=== PATIENT | female | born 1955 | race Caucasian/White ===

== ENCOUNTER 2025-06-06 12:38 | Outpatient (NON) | payer MEDICARE, SELFPAY ==
--- OUTSIDE RECORDS SUMMARY | 2025-06-06 13:19 | XMS_ITS | Referral Summary ---
Author Organization [facility] Building Address [address] [place] [address] Care Team Providers Care Picture Copyist Name Role Phone Rodrick Weiss MD Primary Care Provider [phone] Suleiman Lucia [facility] Unavailable Unavail able Chqiuita Kim RN Unavailable North Pittman MD Unavailable [phone] Encounters Date Type Department Care Team Description 06/05/2025 SHOP/CHAP Subsequent Outreach [facility] OP CASE MANAGEMENT [address] [place] [address] Chiquita Kim RN 06/02/2025 SHOP/CHAP Subsequent Outreach [facility] OP CASE MANAGEMENT [address] [place] [address] Chiquita Kim, JOYCE 05/31/2025 Plan of Care Documentation [facility] [address] [place] [address] 05/31/2025 Orders Only [facility] [address] [place] [address] Suleiman Lucia RPh 05/28/2025 3:55 PM CDT - 05/31/2025 10:50 AM CDT Hospital Encounter [facility] 4 Med Surg [address] [place] [address] Collin Mckeon DO Gaspe Mudiyanselage, Nilupa Sewwandi, MD Cellulitis of left lower extremity (Primary Dx); Presence of both artificial knee joints; Tricompartment osteoarthritis of knees, bilateral; Infection of prosthetic left knee joint; Infection or inflammatory reaction due to internal joint prosthesis, initial encounter; Spinal stenosis of lumbar region with neurogenic claudication Discharge Disposition: Discharge to home, home health skilled care 05/28/2025 SHOP/CHAP Subsequent Outreach [facility] OP CASE MANAGEMENT [address] [place] [address] Chiquita Kim, JOYCE 05/26/2025 Home Infusion [facility]fusion Therapy [address] [place] [address] Latha Haley Infection of prosthetic left knee joint 05/26/2025 SHOP/CHAP Subsequent Outreach [facility] OP CASE MANAGEMENT [address] [place] [address] Chiquita Kim, JOYCE 05/23/2025 SHOP/CHAP Subsequent Outreach [facility] OP CASE MANAGEMENT [address] [place] [address] Chiquita Kim, JOYCE 05/22/2025 Telephone [facility] Medical Group Cardiology [address] [place] [address] [address] [place] [phone] Baljeet De La Rosa MD 05/21/2025 SHOP/CHAP Subsequent Outreach [facility] OP CASE MANAGEMENT [address] [place] [address] Chiquita Kim, JOYCE 05/21/2025 Telephone [facility] Infectious Diseases [address] [place] [address] [address] [place] [address] Ann Heller, JOYCE 05/20/2025 Home Infusion [facility]fusion Therapy [address] [place] [address] Matti Tracy, [facility] 05/19/2025 SHOP/CHAP Initial Outreach [facility] OP CASE MANAGEMENT [address] [place] [address] Chiquita Kim RN 05/19/2025 SHOP/CHAP Initial Eligibility Review [facility] OP CASE MANAGEMENT [address] [place] [address] Chiquita Kim RN 05/17/2025 Plan of Care Documentation [facility]fusion Therapy [address] [place] [address] 05/17/2025 Home Infusion [facility] [address] [place] [address] Ana Ruiz, [facility] Infection of prosthetic left knee joint (Primary Dx) 05/13/2025 9:29 AM CDT - 05/17/2025 1:17 PM CDT Hospital Encounter [address] [address] Kalpesh Rahman MD Infection or inflammatory reaction due to internal joint prosthesis, initial encounter (Primary Dx); Illness, unspecified; Infection of prosthetic left knee joint Discharge Disposition: Discharge to home, home health skilled care 05/16/2025 Documentation [facility] Infectious Diseases [address] [place] [phone] Janae Thorpe NP 05/13/2025 10:40 AM CDT - 05/13/2025 1:30 PM CDT Surgery [facility] Operating Room [address] [place] [address] Kalpesh Rahman MD IRRIGATION AND DEBRIDEMENT - KNEE 05/13/2025 10:22 AM CDT Anesthesia Event [facility] Operating Room [address] [place] [address] Albino Caal MD Dippolito, Jenny Irene, NP 05/01/2025 Telephone [facility] Orthopaedic Surgery [address] [place] [address] Office [facility] [address] [place] [phone] Kalpesh Rahman MD 04/29/2025 Telephone [facility] Orthopaedic Surgery [address] [place] [address] 4 [address] [place] [phone] Kalpesh Rahman MD 04/28/2025 8:30 AM CDT Pre-Admission Testing [facility] Center for Preoperative Assessment and [facility] [address] [place] [id number] Preoperative testing (Primary Dx); Vitamin D deficiency; Bleeding disorder 03/31/2025 Telephone [facility] Infectious Diseases [address] [place] [address] [address] [place] [phone] Latha Thorpe RMA 03/31/2025 11:52 AM CDT - 03/31/2025 11:59 PM CDT Hospital Encounter [address] MOB [address] [place] [phone] History of total knee arthroplasty, left; Orthopedic aftercare Discharge Disposition: Discharge to home or self care 03/31/2025 11:15 AM CDT Office Visit [facility] Orthopaedic Surgery [address] [place] [address] [address] [place] [phone] Kalpesh Rahman MD Infection of prosthetic left knee joint (Primary Dx); History of total knee arthroplasty, left; Orthopedic aftercare 03/20/2025 12:00 PM CDT Office Visit [facility] Cardiology [address] [place] [address] [place] [phone] Baljeet De La Rosa MD PVC's (premature ventricular contractions) (Primary Dx); Essential (primary) hypertension 03/15/2025 12:30 PM CDT Lab [facility] Lab [address] [place] [address] History of left knee replacement 03/10/2025 1:41 PM CDT - 03/10/2025 11:59 PM CDT Hospital Encounter [facility] Radiology [address] [place] [address] Inderjit Arnold MD Cabrera Lebron, Jorge Alberto, MD History of left knee replacement Discharge Disposition: Discharge to home or self care 03/07/2025 Telephone [facility] Radiology 1 [place] [address] GuerreroEsther adam B.A. from Last 3 Months Allergies Active Allergy Reactions Criticality Noted Date Comments Codeine Unknown 10/04/2021 Codeine Sulfate Syncope High 04/04/2019 passes out Hydrocodone Other (See comments) Low 10/05/2020 Didn't work on pain and was up for 4 nights without sleep. Patient can take tylenol. Took oxycodone for previous surgery Medications gabapentin (NEURONTIN) 300 mg capsule Take 3 capsules (900 mg total) by mouth 3 (three) times a day 270 capsule 11 021 2025 Active Additional Information Patient taking differently:900 mg oral 3 times daily,Indications: Neuropathic Pain, Informant: Self, Reported on 05/28/[address] (CYMBALTA) 20 mg capsuleIndicati ons:Anxiety with Depression,Neur opathic Pain Take 2 capsules (40 mg total) by mouth every morning 023 Active cholecalciferol (VITAMIN D-3) 2000 unit tabletIndicatio ns:Vitamin D Deficiency Take 125 mcg by mouth every morning 025 Active triamcinolone (KENALOG) 0.5 % creamIndication s:Skin Inflammation,sk in rash Apply 1 Application topically 2 (two) times a day as needed for irritation or rash 025 Active metoprolol XL (TOPROL-XL) 50 mg extended release tabletIndicatio ns:Dizziness and giddiness TAKE 1 TABLET(50 MG) BY MOUTH DAILY 90 tablet 3 025 Active Additional Information Patient taking differently:50 mg oralEvery morning, Indications: Ventricular Arrhythmias, PVC's, Informant: Self, Reported on 05/28/2025 clobetasoL (TEMOVATE) 0.05 % ointmentIndicat ions:Skin Inflammation Apply 1 Application topically 2 (two) times a day as needed (rash/inflammat ion) 025 Active cyclobenzaprine (FLEXERIL) 10 mg tabletIndicatio ns:Muscle Spasm Take 1 tablet (10 mg total) by mouth 3 (three) times a day as needed for muscle spasms 025 Active HAIR, SKIN AND NAILS, BIOTIN, ORALIndications :hair supplement Take 1 tablet/chew tab by mouth every morning Active calcium carbonate-vitam in D3 1,250 mg (500 mg elemental)-400 unit tabletIndicatio ns:Hypocalcemia Prevention,Prev ention of Vitamin D Deficiency,Kylie min D Deficiency Take 1 tablet by mouth every morning Active senna-docusate (PERICOLACE) 8.6-50 mgIndications:c onstipation Take 2 tablets by mouth 2 (two) times a day 60 tablet Active traMADoL (ULTRAM) 50 mg tabletIndicatio ns:Neuropathic Pain,Pain Take 1 tablet (50 mg total) by mouth every 6 (six) hours as needed for pain 42 tablet 025 Active Additional Information Patient taking differently: 100 mgoral Every 6 hours PRN, pain,Pt prescribed 2x 50mg tablets., Indications: Neuropathic Pain, Pain, Reported on 05/28/2025 sodium chloride 0.9% flush syringeIndicati ons:Infection of prosthetic left knee joint Infuse 10 mL IV as needed for line care 49225 mL 5 6:10 PM CDT 025 2024 Active heparin 10 unit/mL syringe flush syringeIndicati ons:Maintain Patency of Indwelling Vascular Catheter Infuse 5 mL (50 Units total) IV as needed (line care) 12518 mL 5 6:10 PM CDT 025 2024 Active furosemide (LASIX) 20 mg tablet Take 2 tablets (40 mg total) by mouth daily 180 tablet 1 025 2025 Active acetaminophen (TYLENOL) 500 mg tablet Take 2 tablets (1,000 mg total) by mouth every 8 (eight) hours as needed for pain Active naproxen (NAPROSYN) 500 mg tablet Take 1 tablet (500 mg total) by mouth 2 (two) times a day with meals Active doxycycline monohydrate (MONODOX) 100 mg capsuleIndicati ons:Skin/Soft Tissue Infection Take 1 capsule (100 mg total) by mouth 2 (two) times a day for 7 days 14 capsule 025 2024 Active cefTRIAXone 2,000 mg in sterile water 20 mL IV syringeIndicati ons:Infection of prosthetic left knee joint Give 20 ml (2,000 mg) by slow IV push into a venous catheter every 24 hours over 5 minutes. Remove dose from refrigerator 1-2 hours prior to use 440 mL 6:10 PM CDT 025 2024 Active naproxen (NAPROSYN) 500 mg tabletIndicatio ns:Anti-inflamm atory,Pain Take 1 tablet (500 mg total) by mouth 2 (two) times a day with meals 2024 Discontinued(S top Taking at Discharge) traMADoL (ULTRAM) 50 mg tabletIndicatio ns:Neuropathic Pain,Pain Take 1 tablet (50 mg total) by mouth every 4 (four) hours as needed for pain 024 2024 Discontinued cephalexin (KEFLEX) 500 mg capsule Take 1 capsule (500 mg total) by mouth every 8 (eight) hours 270 capsule 1 025 2024 Discontinued(S top Taking at Discharge) furosemide (LASIX) 40 mg tablet Take 1 tablet (40 mg total) by mouth daily 90 tablet 3 025 2024 Discontinued mupirocin (BACTROBAN) 2 % ointmentIndicat ions:Prophylact ic antibiotic Sig: Apply topically 2 (two) times a day for 5 days. APPLY TO NOSTRILS TWICE A DAY FOR 5 DAYS PRIOR TO SURGERY. 22 g 025 2024 Discontinued(S top Taking at Discharge) predniSONE (DELTASONE) 10 mg tabletIndicatio ns:Anti-inflamm atory,skin inflammation/in fection Take 1 tablet (10 mg) by mouth every morning 025 2024 Discontinued senna (SENOKOT) 8.6 mg tabletIndicatio ns:constipation Take 4 tablets by mouth every morning 2024 Discontinued(S top Taking at Discharge) sodium chloride 0.9% flush syringe Administer 10-40 mL into catheter every 12 (twelve) hours 025 2024 Discontinued(D uplicate order) sodium chloride 0.9% flush syringe Administer 10-20 mL into catheter as needed for line care 025 2024 Discontinued(D uplicate order) heparin 10 unit/mL syringe flush syringeIndicati ons:Maintain Patency of Indwelling Vascular Catheter Administer 2-5 mL (20-50 Units total) into catheter as needed (with each use) 025 2024 Discontinued(D uplicate order) heparin 10 unit/mL syringe flush syringeIndicati ons:Maintain Patency of Indwelling Vascular Catheter Administer 5 mL (50 Units total) into catheter every 12 (twelve) hours 025 2024 Discontinued(D uplicate order) cefTRIAXone (ROCEPHIN) syringeIndicati ons:Bone/Joint Infection Infuse 20 mL (2,000 mg total) IV daily for 5 minutes at 240 mL/hr Last dose 06/24 025 2024 Discontinued(D uplicate order) DAPTOmycin (CUBICIN) 50 mg/mL injectionIndica tions:Bone/Join t Infection Infuse 12 mL (600 mg total) IV daily for 2 minutes at 360 mL/hr Last dose 06/24 025 2024 Discontinued(D uplicate order) acetaminophen 500 mg capsuleIndicati ons:Pain Take 2 capsules (1,000 mg total) by mouth every 8 (eight) hours 90 tablet 025 2024 Discontinued(A lternate therapy) aspirin 81 mg enteric coated tabletIndicatio ns:Deep Vein Thrombosis Prevention Take 1 tablet (81 mg total) by mouth 2 (two) times a day 60 tablet 025 2024 Discontinued(P atient Reported) oxyCODONE (ROXICODONE) 5 mg immediate release tabletIndicatio ns:Pain Take 1 tablet (5 mg total) by mouth every 4 (four) hours as needed for pain 30 tablet 025 2024 Discontinued DAPTOmycin 600 mg in sodium chloride 0.9% 12 mL IV SyringeIndicati ons:Infection of prosthetic left knee joint Give 12 mL (600 mg) by slow IV push every 24 hours over 2 minutes. Remove dose from refrigerator 1-2 hours prior to use. 360 mL 1 5 11:59 PM CDT 025 2024 Discontinued cefTRIAXone 2,000 mg in sterile water 20 mL IV syringeIndicati ons:Infection of prosthetic left knee joint Give 20 ml (2,000 mg) by slow IV push into a venous catheter every 24 hours over 5 minutes. Remove dose from refrigerator 1-2 hours prior to use 600 mL 1 5 6:50 PM CDT 025 2024 Discontinued(R eorder) vancomycin (VANCOCIN) 1,000 mg injection Infuse 17.5 mL (1,750 mg total) IV daily for 24 days 42 each 025 2024 Discontinued(S top Taking at Discharge) Active Problems Problem Noted Date Diagnosed Date Cellulitis of left lower extremity 05/28/2025 Infection of prosthetic left knee joint 05/16/20 25 Assessment & Plan (05/16/2025 11:01 AM CDT): Julianna Albarran is a 69 y.o. female with a longstanding history of Left knee PJI. Patient was seen by ID in the past for similar issues, last in 01/2025. She has L TKA (2017), R TKA (2018) and R REYNA (2019). For her left knee PJI, she intially presented to [facility] 06[facility]21 with c/o worsening LLE pain, redness, and swelling after twisting her knee several days prior. She was started on IV ceftriaxone for cellulitis. She was seen by Ortho surgery with L knee arthrocentesis showing 89650 WBCs (90% PMNs) and R knee arthrocentesis showing 76112 WBCs (90% PMNs) raising concern for bilateral prosthetic joint infection. Cultures from bilateral knees grew MSSA along with blood cultures. She was then transferred to [facility] for further care. She was discharged on IV oxacillin with plans for 6 weeks of therapy to be followed by rodent exterminator oral antibiotic therapy due to retained hardware to bilateral knees. She completed IV antibiotic course on 07/12/21 and was then placed on Keflex for rodent exterminator suppression. She has been f/u with our ID clinic for her rodent exterminator antibiotic suppression. She had aspiration of knee on 06/08/22 in preparation for L TKA revision and had been off antibiotics for 2-3 weeks at that time with negative cultures. She was taken to the OR on 06/21/22 for revision arthroplasty with no signs of infection intraoperatively. One OR cultures grew Staph epi. ID team spoke with lab who felt this was likely a contaminant. She was recommended to continue on Keflex suppression. X-RAY 06/2024 showed increase in periprosthetic loosening so she went to see Ortho again in June to talk about possible surgical intervention. Per ortho note, the treatment option was discussed with her including DAIR vs 2-stage exchange. After reviewing risks and benefits extensively the patient elected for DAIR. She was admitted and went to the OR with Ortho Surgery for left knee I&D and lining exchange on 05/13/25. OR cultures were taken which are NGTD. Requested that microbiology send sequencing given she was on Keflex pre-operatively (pending). Recommending treating as culture negative left knee PJI with 6 weeks (05/13/25-06/24/25) of antibiotics then suppressing given retained hardware for additional 6 weeks (EOT 08/13/25) minimum. Would recommend risk/benefit discussion with patient and surgeon prior to discontinuing suppression given her history of chronic PJI's. Discharging with IV daptomycin and ceftriaxone with plan to follow sequencing results and adjust antibiotics as indicated at ID follow up. If sequencing is negative, could consider suppressing previous MSSA. Recommendations: - Discontinue IV vancomycin and cefepime and start daptomycin 8mg/kg (600mg) IV q24hr and ceftriaxone 2gm IV q24hr (ordered) - Check baseline CK - Monitor weekly CBC w/ diff, CMP and CK's - Okay by ID to place PICC line for rodent exterminator IV antibiotics - ID is formally signing off but will continue to monitor patient peripherally while inpatient. Please see sign off note from 05/16/25 for complete recommendations. Discussed plan with Ortho Surgery INTELLIGENCE DIRECTOR Team Infection and inflammatory r eaction due to internal joint prosthesis 04/01/2025 PVC's (premature ventricular contractions) 04/11 Urinary incontinence 11/16/2023 Facet arthropathy, lumbar 09/12/2023 Other intervertebral disc degeneration, lumbar r egion 02/09/2023 Foraminal stenosis of lumbar region 02/09/2023 Spinal stenosis of lumbar re gion with neurogenic claudication 02/09/2023 Radiculopathy, lumbar region 11/16/2022 Overview (06/17/2024): Added automatically from request for surgery [id number] Failed total knee arthroplasty, subsequent encou nter 06/22/2022 Painful total knee replacement, sequela 06/21/20 22 Painful orthopaedic hardware 06/09/2022 Overview (06/09/2022): Added automatically from request for surgery [id number] Constipation 03/15/2022 Assessment & Plan (03/15/2022 12:09 PM CDT): - Reports chronic constipation. She has not been on previously prescribed stool softeners due to cost. I sent in a rx for stool softeners and instructed her to use GoodRx coupon to help lower the cost. She has scheduled follow up with her PCP and I encouraged her to discuss chronic constipation with him to determine halfway regimen. Healthcare maintenance 03/15/2022 Assessment & Plan (03/15/2022 12:09 PM CDT): - Received 2 doses of Covid vaccine, refuses booster today Bilateral primary osteoarthritis of knee 021 Secondary osteoarthritis, left hand 06/15/2021 Infection of prosthetic knee joint 06/09/2021 Assessment & Plan (02/17/2025 1:49 PM CDT): - Continues to have bilateral knee pain but has had some gradual worsening of left knee pain. X-ray showed increase in periprosthetic loosening which can be seen in infection but given her lack of other infection symptoms I think this is unlikely. Regardless she will stay on her suppressive antibiotics. - Continue Keflex 500 mg PO TID for chronic suppression due to retained hardware in the setting of MSSA prosthetic joint infection to bilateral knees. Plan to continue for the foreseeable future due to risk of recurrent infection - F/u with ortho - Call with worsening symptoms - Discussed with patient the rational for treatment, culture results, risk of recurrent infection, signs/symptoms of recurrent infection, and to contact ID clinic with any questions or concerns Assessment & Plan (01/29/2024 1:15 PM SLASHER TENDER): - Reports doing well with stable knee pain and swelling. She remains on Keflex suppression without adverse effects. No acute issues today. Plans to have - Continue Keflex 500 mg PO TID for chronic suppression due to retained hardware in the setting of MSSA prosthetic joint infection to bilateral knees. Plan to continue for the foreseeable future due to risk of recurrent infection - CBC and CMP drawn today for routine monitoring while on rodent exterminator antibiotics - Discussed with patient the rational for treatment, culture results, risk of recurrent infection, signs/symptoms of recurrent infection, and to contact ID clinic with any questions or concerns Assessment & Plan (01/24/2023 12:39 PM SLASHER TENDER): - Bilateral knee surgical incisions remain well healed without signs of recurrent infection. No systemic signs of infection. Since last visit she underwent revision of L TKA and had uncomplicated recovery but did recently have a fall where she fell on her left knee. Has had some increased pain since fall w/o deformity or bruising on exam. Will obtain L knee x-ray to ensure no trauma from fall - Continue Keflex 500 mg PO TID for chronic suppression due to retained hardware in the setting of MSSA prosthetic joint infection to bilateral knees. Plan to continue for the foreseeable future due to risk of recurrent infection - CBC and CMP drawn today for routine monitoring while on rodent exterminator antibiotics - Discussed with patient the rational for treatment, culture results, risk of recurrent infection, signs/symptoms of recurrent infection, and to contact ID clinic with any questions or concerns Assessment & Plan (03/15/2022 12:07 PM CDT): - Bilateral knee surgical incisions remain well healed without signs of recurrent infection. No systemic signs of infection. She has had some increase in L knee pain that seems to be more mechanical as there are no signs of recurrent infection and inflammatory markers are normal. She has MRI scheduled for further evaluation and will follow up with ortho - Continue Keflex 500 mg PO TID for chronic suppression due to retained hardware in the setting of MSSA prosthetic joint infection to bilateral knees. Plan to continue for the foreseeable future due to risk of recurrent infection - CBC and CMP drawn today for routine monitoring while on rodent exterminator antibiotics - Discussed with patient the rational for treatment, culture results, risk of recurrent infection, signs/symptoms of recurrent infection, and to contact ID clinic with any questions or concerns Assessment & Plan (09/14/2021 2:34 PM CDT): - Bilateral knee surgical incisions remain well healed without signs of recurrent infection. Chronic swelling noted that is unchanged. No systemic signs of infection. She does have some worsening of her right hip pain without concern for infection at site. - Continue Keflex 500 mg PO TID for chronic suppression due to retained hardware in the setting of MSSA prosthetic joint infection to bilateral knees. Plan to continue for the foreseeable future due to risk of recurrent infection - CBC and CMP drawn today for routine monitoring while on halfway antibiotics - Follow up with ortho as scheduled. She was instructed to call ID clinic with any concerns for recurrent infection - Rx for PO fluconazole x 1 dose sent to pharmacy for treatment of vaginal yeast infection - Discussed with patient the rational for treatment, culture results, risk of recurrent infection, signs/symptoms of recurrent infection, and to contact ID clinic with any questions or concerns Assessment & Plan (07/13/2021 2:15 PM CDT): - Doing well on IV cefazolin with no concern for worsening infection. Knee pain improving. No fevers, chills, etc. - Continue cefazolin IV 2g Q8H x 6 weeks. FIRM STOP on 07/22/21 after completing 6 weeks of therapy as long as she continues to do well - Start Keflex 500 mg PO TID on 07/23/21 for chronic suppression due to retained knee hardware in the setting of infection. Plan to continue for the foreseeable future due to risk of recurrent infection. - ESR and CRP drawn today in clinic - Discussed with patient the rational for treatment, culture results, risk of recurrent infection, signs/symptoms of recurrent infection, and to contact ID clinic with any questions or concerns Assessment & Plan (06/14/2021 12:36 PM CDT): Hx L TKA (2018) and R TKA (2019) complicated by bilateral knee prosthetic joint infection in the setting of L lower extremity soft tissue infection + MSSA bloodstream infection. Now s/p OR I&D + liner exchange (06/08/2021). ESR 112, CRP 431.2. Interim developments: Evaluated by optho previously and blurry vision not felt to be 2/2 infection. Review of OSH records, first + blood cx appears to have been 06/06 (MSSA) 06/10 bld cx NGTD Panorex w/o abscess MRI spine w/o osteo/infection TTE negative for vegetations. She is on oxcn Ultrasound of her Left hand revealed cellulitis and phlegmon, no abscess noted. PICC line is in cx data: 06/06 admission bld cx OSH MSSA (S: clinda, ees, oxcn, bactrim, tcn) 06/08 bld cx MSSA 06/08 L knee tissue - MSSA 06/09 blood cx MSSA 06/09 R knee tissue - MSSA 06/10 bld cx NGTD Recommendations: - Continue oxacillin 2000mg IV q4 hours. Plan on 6 weeks of therapy followed by rodent exterminator oral suppression given retained HW. - we discussed adding rifampin, but she is on apixiban which interacts and given bilateral knee retained HW, she will need life long oral suppression regardless. - cbc, cmp weekly; esr/crp at weeks 3 and 6. - monitor her hand cellulitis - ID will formally sign off but continue to follow the pt peripherally while in house. - Please call with any questions , concerns, changes in the patients' cultures or clinical status. - See the most recent ID plan of care note for detailed recommendations. Thank you for allowing the bone and joint ID team to assist in the care of your patient. Please call with questions, concerns, changes in the patients cultures or clinical status. Diagnosis unknown 06/07/2021 Overview (06/08/2021): Added automatically from request for surgery [id number] Lower extremity pain, left 06/06/2021 Age-related osteoporosis wit hout current pathological fracture 05/23/2021 Cellulitis of left upper limb 05/23/2021 Encounter for adjustment and management of vascular access device 05/23/2021 Essential (primary) hypertension 05/23/2021 Jaw pain 05/23/2021 Other specified arthritis, multiple sites 2020 Polyneuropathy, unspecified 05/23/2021 Sepsis due to methicillin susceptible Staphyloco ccus aureus 05/23/2021 Osteoarthritis of right hip 10/15/2020 Status post total hip replacement, right 020 Presence of both artificial knee joints 08/08/20 18 Tricompartment osteoarthritis of knees, rpimo l 06/20/2018 Resolved Problems Problem Noted Date Diagnosed Date Resolved Date Infection and inflammatory r eaction due to internal right knee prosthesis, initial encounter 05/23/2021 03/15/2022 Immunizations Immunization Administration Dates Next Due Influenza, Quadrivalent, Spl it, Intramuscular 10/05/2020 Influenza, Quadrivalent, Spl it, Preservative Free, Intramuscular 08/03/2021 Pfizer SARS-CoV-2 Monovalent Vaccination (12+ Yrs) PURPLE 02/12/2021,02/12/2021,01/22/2021,01/22 Pneumococcal Polysaccharide PPV23 03/18/2020 Social History Tobacco Use Types Packs/Day Years Used Date Smoking Tobacco: Never Passive Smoke Exposure: Past Smokeless Tobacco: Never Tobacco Cessation:Counseling Given: Not Answered Alcohol Use Standard Drinks/Week Comments Not Currently 0 (1 standard drink = 0.6 oz pur e alcohol) [facility] [employer] Answer Date Recorded In the past 12 months has J[employer], [employer], oil, or water [employer] threatened to shut off services in your home? No 05/29/2025 Social Connection and Isolat ion Panel [NHANES] Answer Date Recorded In a typical week, how many times do you talk on the phone with family, friends, or neighbors? More than three times a week 05/29/2025 How often do you get togethe r with friends or relatives? More than three times a week 05/29/2025 How often do you attend chur or temple services? Never 05/29/2025 Do you belong to any clubs o r organizations such as holiness groups, unions, fraternal or athletic groups, or school groups? No 05/29/2025 How often do you attend meet ings of the clubs or organizations you belong to? Never 05/29/2025 Are you , , di vorced, , never , or living with a partner? 05/29/2025 AUDIT-C Answer Date Recorded Q1: How often do you have a drink containing alcohol? Never 05/13/2025 Q2: How many drinks containi ng alcohol do you have on a typical day when you are drinking? Patient does not drink Q3: How often do you have si x or more drinks on one occasion? Never 05/13/2025 Overall Financial Resource Strain (CARDIA) Answe r Date Recorded How hard is it for you to pa y for the very basics like food, housing, medical care, and heating? Not hard at all 05/29/2025 PHQ-2 Answer Date Recorded PHQ-2 Total Score 0 05/29/2025 Hunger Vital Sign Answer Date Recorded Within the past 12 months, y ou worried that your food would run out before you got the money to buy more. Never true 05/29/20 25 Within the past 12 months, t he food you bought just didn't last and you didn't have money to get more. Never true 05/29/2025 PRAPARE - Transportation Answer Date Re corded In the past 12 months, has l ack of transportation kept you from medical appointments or from getting medications? No 01/2025 In the past 12 months, has l ack of transportation kept you from meetings, work, or from getting things needed for daily living? No 05/29/2025 Housing Stability Vital Sign Answer Baltazar e Recorded In the last 12 months, was t here a time when you were not able to pay the mortgage or rent on time? No 06/10/2021 Number of Places Lived in the Last Year Not on f ile 06/10/2021 In the last 12 months, was t here a time when you did not have a steady place to sleep or slept in a residential (including now)? No 06/10/2021 PHQ-9 Answer Date Recorded PHQ-9 Total Score 7 05/29/2025 Housing Stability Vital Sign Answer Baltazar e Recorded In the last 12 months, was t here a time when you were not able to pay the mortgage or rent on time? No 05/29/2025 In the past 12 months, how m any times have you moved where you were living? 0 05/29/2025 At any time in the past 12 m [facility], were you homeless or living in a residential (including now)? No 05/29/2025 Personal Safety Answer Date Recorded Have you ever been in or are you currently in a harmful physical or emotional relationship or is someone making you feel afraid or unsafe? 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 Gender Identity Not on file Sexual Orientation Not on file Occupation Industry Job Start Date Job End Date Retired Not on file Not on file Not on file Last Filed Vital Signs Vital Sign Reading Time Taken Comments Blood Pressure 140/63 05/31/2025 8:04 AM CDT Pulse 57 05/31/2025 8:04 AM CDT Temperature 36.4 C (97.5 F) 05/31/2025 8:04 AM CDT Respiratory Rate 18 05/31/2025 8:04 AM CDT Oxygen Saturation 99% 05/31/2025 8:04 AM CDT Inhaled Oxygen Concentration - - Weight 102.2 kg (225 lb 6.4 oz) 05/29/2025 4:40 AM CDT Height 167.6 cm (5' 5.98) 05/28/2025 6:55 PM CD T Body Mass Index 36.4 05/28/2025 6:55 PM CDT Plan of Treatment Not on file Goals Goal Patient Goal Type Associated Problems Recent Progress Patient-Stated? Author Patient will have kept initial appointment and will show signs of improvement to baseline Care Plan Initial Follow-Up Appointment Chiquita Crespo RN Patient will have access to medications needed for healthy outcomes Care Plan Barriers to Medication Adherence No Chiquita Kim RN Patient will recover without complications following surgery Care Plan Knowledge deficit related to post op care Chiquita Crespo RN Medical Devices Implanted Type Area Wire Coating Machine Operator Device Identifier Shelf Expiration Date Model / Serial / Lot [employer]/Or tho [id number] Legion 9mm Posterior Stabilized High Flexion Knee 3-4 Insert - [id number] - [id number] Implanted:Qty: 1 on 06/08/2021 by Suleiman Medina MD at [facility] Right: Knee [employer]Or tho 12/15/2029 [id number] / [id number] / [employer]Or tho [id number] Legion 11mm Posterior Stabilized High Flexion Knee 5-6 Insert - [id number] - [id number] Implanted:Qty: 1 on 06/08/2021 by Suleiman Medina MD at [facility] Right: Knee [employer]Or tho 05/02/2029 [id number] / [id number] / [id number] [employer] Attune Od14 Mm L30 Mm Cement Revision Knee Stem Femoral Sterile [id number] - [id number] Implanted:Qty: 1 on 06/21/2022 by Kalpesh Rahman MD at [facility] Left: Knee [employer] 03/26/2032 [id number] / / [id number] [employer] Attune Cement Revision Rotate Platform Knee 5 Baseplate Tibial [id number] - [id number] Implanted:Qty: 1 on 06/21/2022 by Kalpesh Rahman MD at [facility] Left: Knee [employer] 04/26/2032 [id number] / / [id number] [employer] Attune H8 Mm Revision Cement Knee Distal 6 Augment Femoral Sterile Latex Free [id number] - [id number] Implanted:Qty: 1 on 06/21/2022 by Kalpesh Rahman MD at [facility] Left: Knee [employer] 03/26/2031 [id number] / / [id number] [employer] Attune H8 Mm Revision Cement Knee Posterior 6 Augment Femoral Sterile Latex Free [id number] - [id number] Implanted:Qty: 1 on 06/21/2022 by Kalpesh Rahman MD at [facility] Left: Knee [employer] 12/27/2030 [id number] / / [id number] [employer] Revision Cement Constrain Knee Left 6 Component Femoral Attune [id number] - [id number] Implanted:Qty: 1 on 06/21/2022 by Kalpesh Rahman MD at [facility] Left: Knee [employer] 04/26/2032 [id number] / / [id number] [employer] Attune H8 Mm Revision Cement Knee Distal 6 Augment Femoral Sterile Latex Free [id number] - [id number] Implanted:Qty: 1 on 06/21/2022 by Kalpesh Rahman MD at [facility] Left: Knee [employer] 03/26/2031 [id number] / / [id number] [employer] Attune 4mm Revision Cement Knee Posterior 6 Augment Femoral Latex Free 116519995 - [id number] Implanted:Qty: 1 on 06/21/2022 by Kalpesh Rahman MD at [facility] Left: Knee [employer] 03/26/2032 [id number] / / [id number] [employer] Attune Od16 Mm L80 Mm Cement Revision Knee Stem Femoral Sterile [id number] - [id number] Implanted:Qty: 1 on 06/21/2022 by Kalpesh Rahman MD at [facility] Left: Knee [employer] 11/26/2031 [id number] / / [id number] [employer] Attune 10mm Revision Constrain Rotate Platform Knee 6 Insert [id number] - [id number] Implanted:Qty: 1 on 06/21/2022 by Kalpesh Rahman MD at [facility] Left: Knee [employer] 02/24/2023 [id number] / / [id number] [employer] Triathlon Symmetric B Cone Augment Tibial Tritanium Sterile Latex Free 5549-A-120 - [id number] Implanted:Qty: 1 on 06/21/2022 by Kalpesh Rahman MD at [facility] Left: Knee [employer] 10/16/2026 5549-A-120 / / [id number] [employer] Simplex P Full Dose Radiopaque Preblend Cement Bone Tobramycin 6197-9-001 - [id number] Implanted:Qty: 1 on 06/21/2022 by Kalpesh Rahman MD at [facility] Left: Knee [employer] 09/26/2023 6197-9-001 / / [id number] [employer] Simplex P Full Dose Radiopaque Preblend Cement Bone Tobramycin 6197-9-001 - [id number] Implanted:Qty: 1 on 06/21/2022 by Kalpesh Rahman MD at [facility] Left: Knee [employer] 09/26/2023 6197-9-001 / / [id number] [employer] Simplex P Full Dose Radiopaque Preblend Cement Bone Tobramycin 6197-9-001 - [id number] Implanted:Qty: 1 on 06/21/2022 by Kalpesh Rahman MD at [facility] Left: Knee [employer] 09/26/2023 6197-9-001 / / [id number] [employer]Or tho Prep-Im Plug [place] Sponge Suction Hip Kit Thr Latex Free 342538 - [id number] Implanted:Qty: 1 on 06/21/2022 by Kalpesh Rahman MD at [facility] Left: Knee [employer] 01/13/2032 [id number] / / [id number] [employer]Or [employer] Prep-Im Plug [place] Sponge Suction Hip Kit Thr Latex Free 094523 - [id number] Implanted:Qty: 1 on 06/21/2022 by Kalpesh Rahman MD at [facility] Left: Knee [employer] 05/04/2032 [id number] / / [id number] [employer] Stimulan Rapid Cure Kit Paste Storekeeper Helper 10cc 20cc Bone Void 620-010 - [id number] Implanted:Qty: 1 on 05/13/2025 by Kalpesh Rahman MD at [facility] Left: Knee [employer] [id number] 10/26/2027 620-010 / / [id number] [employer] Cement Bone Medium Viscosity Gentamicin Single Dose Endurance 40gm Pmma 5450-31-500 - [id number] Implanted:Qty: 1 on 05/13/2025 by Kalpesh Rahman MD at [facility] Left: Knee [employer] [id number] 12/27/2026 5450-31-500 / / [employer] Attune 10mm Revision Constrain Rotate Platform Knee 6 Insert [id number] - [id number] Implanted:Qty: 1 on 05/13/2025 by Kalpesh Rahman MD at [facility] Left: Knee [employer] [id number] 03/26/2028 [id number] / / [employer] Attune 35mm Cemented Medialize Knee Dome Patellar Aox Sterile [id number] - [id number] Implanted:Qty: 1 on 05/13/2025 by Kalpesh Rahman MD at [facility] Left: Knee [employer] [id number] 10/26/2028 [id number] / / [employer] Attune 35mm Cemented Medialize Knee Dome Patellar Aox Sterile 479745124 - [id number] Implanted:Qty: 1 on 05/13/2025 by Kalpesh Rahman MD at [facility] Left: Knee [employer] [id number] 10/26/2028 [id number] / / Explanted Type Area Wire Coating Machine Operator Device Identifier Shelf Expiration Date Model / Serial / Lot [employer]/ Ortho [id number] Legion 9mm Posterior Stabilized High Flexion Knee 3-4 Insert - [id number] - [id number] Explanted:Qty: 1 on 06/08/2021 at [facility] Right: Knee [employer] [id number] 05/19/2029 [id number] / [id number] / [id number] [employer]/ Ortho [id number] Legion 11mm Posterior Stabilized High Flexion Knee 5-6 Insert - [id number] - [id number] Explanted:Qty: 1 on 06/08/2021 at [facility] Right: Knee [employer] 05/31/2029 [id number] / [id number] / [id number] Procedures Procedure Name Priority Date/Time Associated Diagnosis Comments EGFR Routine 05/31/2025 6:32 AM CDT DIFFERENTIAL AUTO Routine 05/31/2025 6:3 2 AM CDT BASIC METABOLIC PANEL Routine 05/31/2025 6:32 AM CDT CBC WITH AUTO DIFFERENTIAL Routine 05/31/2025 6:32 AM CDT SCAN - LABS 05/31/2025 12:00 AM CDT EGFR Routine 05/30/2025 5:53 AM CDT DIFFERENTIAL AUTO Routine 05/30/2025 5:5 3 AM CDT COMPREHENSIVE METABOLIC PANEL Routine 05/30/2025 5:53 AM CDT CBC WITH AUTO DIFFERENTIAL Routine 05/30/2025 5:53 AM CDT US VEIN DUPLEX LOWER EXTREMITY LEFT LIMITED ED 05/29/2025 8:41 AM CDT HEMOGLOBIN A1C Routine 05/29/2025 4:56 AM CDT EGFR Routine 05/29/2025 4:56 AM CDT DIFFERENTIAL AUTO Routine 05/29/2025 4:5 6 AM CDT BASIC METABOLIC PANEL Routine 05/29/2025 4:56 AM CDT CBC WITH AUTO DIFFERENTIAL Routine 05/29/2025 4:[address] LUMBAR SPINE WO CONTRAST IP Routine 05/28/2025 9:47 PM CDT BLOOD CULTURE STAT 05/28/2025 7:55 PM CDT BLOOD CULTURE STAT 05/28/2025 7:55 PM CDT CRP (ACUTE PHASE) Timed 05/28/2025 7:3 4 PM CDT CREATINE KINASE (CK), TOTAL Timed 05/28/2025 7:34 PM CDT ERYTHROCYTE SEDIMENTATION RATE Routine 05/28/2025 7:34 PM CDT CREATINE KINASE (CK), TOTAL STAT 05/28/2025 5:28 PM CDT XR KNEE LEFT 1 OR 2 VIEWS ED 05/28/2025 1:15 PM CDT XR SPINE LUMBAR 2 OR 3 VIEWS ED 05/28/2025 1:15 PM CDT EGFR STAT 05/28/2025 12:28 PM CDT DIFFERENTIAL AUTO STAT 05/28/2025 12:28 PM CDT CREATINE KINASE (CK), TOTAL STAT 05/28/2025 12:28 PM CDT CBC WITH AUTO DIFFERENTIAL STAT 05/28/2025 12:28 PM CDT COMPREHENSIVE METABOLIC PANEL STAT 05/28/2025 12:28 PM CDT EGFR Routine 05/16/2025 9:45 PM CDT CBC WITHOUT DIFFERENTIAL Routine 05/16/2025 9:45 PM CDT BASIC METABOLIC PANEL Routine 05/16/2025 9:45 PM CDT CREATINE KINASE (CK), TOTAL Timed 05/16/2025 11:39 AM CDT VANCOMYCIN LEVEL TROUGH Timed 05/16/2025 10:18 AM CDT EGFR Routine 05/15/2025 10:12 PM CDT CBC WITHOUT DIFFERENTIAL Routine 05/15/2025 10:12 PM CDT BASIC METABOLIC PANEL Routine 05/15/2025 10:12 PM CDT VANCOMYCIN LEVEL TROUGH Timed 05/15/2025 9:17 AM CDT EGFR Routine 05/14/2025 10:12 PM CDT CBC WITHOUT DIFFERENTIAL Routine 05/14/2025 10:12 PM CDT BASIC METABOLIC PANEL Routine 05/14/2025 10:12 PM CDT HEMOGLOBIN AND HEMATOCRIT Timed 05/14/2025 1:31 PM CDT POTASSIUM LEVEL Timed 05/14/2025 9:48 AM CDT TRANSFUSE RED BLOOD CELLS Timed 05/14/2025 9:01 AM CDT TRANSFUSE RED BLOOD CELLS Timed 05/14/2025 5:43 AM CDT POTASSIUM LEVEL Timed 05/14/2025 5:10 AM CDT PREPARE RBC Timed 05/14/2025 4:32 AM CDT EGFR Routine 05/13/2025 9:20 PM CDT CRP (ACUTE PHASE) Timed 05/13/2025 9:2 0 PM CDT ERYTHROCYTE SEDIMENTATION RATE Timed 05/13/2025 9:20 PM CDT CBC WITHOUT DIFFERENTIAL Routine 05/13/2025 9:20 PM CDT BASIC METABOLIC PANEL Routine 05/13/2025 9:20 PM CDT XR KNEE LEFT 1 OR 2 VIEWS ED Urgent/IP Urgent 05/13/2025 3:11 PM CDT MYCOLOGY (FUNGAL) CULTURE AND STAIN Routine 05/13/2025 11:40 AM CDT TISSUE AEROBIC AND ANAEROBIC CULTURE AND GRAM STAIN Routine 05/13/2025 11:40 AM CDT MYCOBACTERIOLOGY AFB CULTURE AND ACID-FAST STAIN Routine 05/13/2025 11:40 AM CDT MICROORGANISM DETECTION BY PCR/SEQUENCING Routine 05/13/2025 11:38 AM CDT TISSUE AEROBIC AND ANAEROBIC CULTURE AND GRAM STAIN Routine 05/13/2025 11:38 AM CDT MYCOLOGY (FUNGAL) CULTURE AND STAIN Routine 05/13/2025 11:38 AM CDT MYCOBACTERIOLOGY AFB CULTURE AND ACID-FAST STAIN Routine 05/13/2025 11:38 AM CDT TISSUE AEROBIC AND ANAEROBIC CULTURE AND GRAM STAIN Routine 05/13/2025 11:32 AM CDT MYCOLOGY (FUNGAL) CULTURE AND STAIN Routine 05/13/2025 11:32 AM CDT MYCOBACTERIOLOGY AFB CULTURE AND ACID-FAST STAIN Routine 05/13/2025 11:32 AM CDT MYCOLOGY (FUNGAL) CULTURE AND STAIN Routine 05/13/2025 11:31 AM CDT TISSUE AEROBIC AND ANAEROBIC CULTURE AND GRAM STAIN Routine 05/13/2025 11:31 AM CDT MYCOBACTERIOLOGY AFB CULTURE AND ACID-FAST STAIN Routine 05/13/2025 11:31 AM CDT TISSUE AEROBIC AND ANAEROBIC CULTURE AND GRAM STAIN Routine 05/13/2025 11:30 AM CDT MYCOLOGY (FUNGAL) CULTURE AND STAIN Routine 05/13/2025 11:30 AM CDT MYCOBACTERIOLOGY AFB CULTURE AND ACID-FAST STAIN Routine 05/13/2025 11:30 AM CDT ANESTHESIA INTUBATION Routine 05/13/2025 10:46 AM CDT REVISION ARTHROPLASTY TOTAL KNEE 05/13/2025 10:26 AM CDT Painful orthopaedic hardware Infection or inflammatory reaction due to internal joint prosthesis, sequela IRRIGATION AND DEBRIDEMENT - KNEE 05/13/2025 10:26 AM CDT Painful orthopaedic hardware Infection or inflammatory reaction due to internal joint prosthesis, sequela TYPE AND SCREEN STAT 05/13/2025 9:54 AM CDT PREPARE RBC Timed 05/13/2025 9:40 AM CDT EGFR Routine 04/28/2025 10:46 AM CDT Preoperative testing DIFFERENTIAL AUTO Routine 04/28/2025 10:46 AM CDT Preoperative testing CPAP APTT ALGORITHM Routine 04/28/2025 10:46 AM CDT Preoperative testing PROTIME-INR Routine 04/28/2025 10:46 AM CDT Preoperative testing Bleeding disorder TYPE AND SCREEN 14 DAY Routine 10:46 AM CDT Preoperative testing COMPREHENSIVE METABOLIC PANEL Routine 04/28/2025 10:46 AM CDT Preoperative testing CBC WITH AUTO DIFFERENTIAL Routine 04/28/2025 10:46 AM CDT Preoperative testing VITAMIN D 25 HYDROXY Routine 04/28/2025 10:46 AM CDT Vitamin D deficiency ECG 12-LEAD Routine 04/28/2025 9:37 AM CDT Preoperative testing SYNOVASURE Routine 04/01/2025 7:42 AM CDT History of left knee replacement XR KNEE LEFT 3 VIEWS Schedule Routine, Read Routine (OP Routine) 03/31/2025 12:00 PM CDT History of total knee arthroplasty, left Orthopedic aftercare ECG 12-LEAD Routine 03/20/2025 12:16 PM CDT PVC's (premature ventricular contractions) Essential (primary) hypertension ERYTHROCYTE SEDIMENTATION RATE STAT 03/15/2025 12:35 PM CDT History of left knee replacement CRP (ACUTE PHASE) STAT 03/15/2025 12:35 PM CDT History of left knee replacement AEROBIC AND ANAEROBIC CULTURE AND GRAM STAIN Routine 03/10/2025 2:46 PM CDT History of left knee replacement US GUIDED ARTHROCENTESIS MAJOR JOINT Schedule Routine, Read Routine (OP Routine) 03/10/2025 2:44 PM CDT History of left knee replacement CELL DIFFERENTIAL, BODY FLUID Routine 03/10/2025 2:44 PM CDT CELL COUNT W/REFLEX DIFFERENTIAL, BODY FLUID Routine 03/10/2025 2:44 PM CDT MYCOLOGY (FUNGAL) CULTURE Routine 03/10/2025 2:44 PM CDT DIAGNOSTIC MAMMOGRAM BILATERAL W ELIO Schedule Routine, Read Routine (OP Routine) 12/24/2021 11:13 AM SLASHER TENDER Mastodynia from Last 3 Months or Most Recently Relevant to Health Maintenance Results * eGFR (05/31/2025 6:32 AM CDT) eGFR 88 >=60 mL/min/1. 73 m2 Comment: Interpretive Data Reference Interval Normal >/= 90 mL/min/1.73m2 Mildly decreased* 60 - 89 mL/min/1.73m2 Mildly to moderately decreased 45 - 59 mL/min/1.73m2 Moderately to severely decreased 30 - 44 mL/min/1.73m2 Severely decreased 15 - 29 mL/min/1.73m2 Kidney Failure < 15 mL/min/1.73m2 *Relative to young adult level Estimated glomerular filtration rate is determined by the 2020 CKD-EPI equation recommended by the National Kidney Foundation (A Unifying Approach to GFR Estimation: Recommendations of the NKF-ASK Task Force on Reassessing the Inclusion of Race in Diagnosing Kidney Disease, JASN 2020). The CKD-EPI equation should not be used for patients with unstable renal function and has not been validated in children and those over 70. Current interpretive data was last reviewed 2021. Testing performed by: [facility], [address] [place] [address]., [address] Blood 05/31/2025 6:32 AM CDT 05/31/2025 6:40 AM CDT us [place] Pittman MD LAB BLOOD ORDERABLES Final R esult [facility] [address] [facility] Department [place] [address] * (ABNORMAL) Differential, auto (05/31/2025 6:32 AM CDT) Neutrophil abs 2.50 1.50 - 6.50 K/cumm Comment:Testing performed by : [address] [address] Imm gran abs 0.01 0.00 - 0.10 K/cumm [facility] Comment:Testing performed by : [address], [place]., [address] Lymphocyte abs 0.77(L) 0.80 - 3.30 K/cumm [facility] Comment:Testing performed by : [address], [place]., [address] Monocyte abs 0.45 0.20 - 0.80 K/cumm [facility] Comment:Testing performed by : [address] [address] Eosinophil abs 0.54(H) 0.00 - 0.50 K/cumm [facility] Comment:Testing performed by : [address] [address] Basophil abs 0.01 0.00 - 0.10 K/cumm [facility] Comment:Testing performed by : [address] [address] Neutrophil pct 58.5 % [facility] Comment: Interpretive Data Percent cell count reference ranges are not reported, since discordance with absolute values may lead to misinterpretation of CBC data. Current Interpretive Data was last revised on 2018. Testing performed by: [address] [address] Imm gran pct 0.2 % [facility] Comment: Interpretive Data Percent cell count reference ranges are not reported, since discordance with absolute values may lead to misinterpretation of CBC data. Current Interpretive Data was last revised on 2018. Testing performed by: [address] [address] Lymphocyte pct 18.0 % [facility] Comment: Interpretive Data Percent cell count reference ranges are not reported, since discordance with absolute values may lead to misinterpretation of CBC data. Current Interpretive Data was last revised on 2018. Testing performed by: [address] [address] Monocyte pct 10.5 % [facility] Comment: Interpretive Data Percent cell count reference ranges are not reported, since discordance with absolute values may lead to misinterpretation of CBC data. Current Interpretive Data was last revised on 2018. Testing performed by: [address] [address] Eosinophil pct 12.6 % [facility] Comment: Interpretive Data Percent cell count reference ranges are not reported, since discordance with absolute values may lead to misinterpretation of CBC data. Current Interpretive Data was last revised on 2018. Testing performed by: [address] [address] Basophil pct 0.2 % [facility] Comment: Interpretive Data Percent cell count reference ranges are not reported, since discordance with absolute values may lead to misinterpretation of CBC data. Current Interpretive Data was last revised on 2018. Testing performed by: [address] [address] Blood 05/31/2025 6:32 AM CDT 05/31/2025 6:40 AM CDT us Shelley Montgomery MD LAB BLOOD ORDERABLES Final Result [facility] [address] [facility] [place] [address] * (ABNORMAL) CBC with auto differential (05/31/2025 6:32 AM CDT) WBC 4.28 3.80 - 9.90 K/cumm Comment:Testing performed by : [address] [address] Hgb 9.5(L) 11.9 - 15.5 g/dL RAUDEL [place] Comment:Testing performed by : [address] [address] Hct 30.8(L) 35.6 - 45.5 % RAUDEL Comment:Testing performed by : [address] [address] Plt 221 150 - 400 K/cumm RAUDEL [place] Comment:Testing performed by : [address] [address] MPV 9.4 9.1 - 12.3 fL RAU[facility] [place] Comment:Testing performed by : [address] [address] RBC 3.57(L) 3.90 - 5.20 M/cumm RAUDEL [place] Comment:Testing performed by : [address] [address] MCV 86.3 81.3 - 96.4 fL RAUDEL Comment:Testing performed by : [address] [address] MCH 26.6(L) 27.1 - 33.3 pg RAUDEL Comment:Testing performed by : [address] [address] MCHC 30.8(L) 32.3 - 35.7 g/dL RAUDEL Comment:Testing performed by : [address] [address] RDW CV 15.8(H) 11.1 - 14.9 % RAUDEL Comment:Testing performed by : [address] [address] RDW SD 48.8(H) 35.7 - 48.1 fL RAUDEL Comment:Testing performed by : [address] [address] NRBC abs 0.00 0.00 - 0.01 K/cumm RAUDEL Comment:Testing performed by : [address] [address] Blood 05/31/2025 6:32 AM CDT 05/31/2025 6:40 AM CDT us Shelley Montgomery MD LAB BLOOD ORDERABLES Final Result RAUDEL [address] [facility] Department [place] [address] * Basic metabolic panel (05/31/2025 6:32 AM CDT) Sodium 140 135 - 145 mmol/L Comment:Testing performed by : [address], [place]., [address] Potassium, pl 3.9 3.3 - 4.9 mmol/L RAUDEL Comment:Testing performed by : [address], [place]., [address] Chloride 103 97 - 110 mmol/L RAUDEL Comment:Testing performed by : [address], [place]., [address] CO2 27 22 - 32 mmol/L RAUDEL Comment:Testing performed by : [address], [place]., [address] Anion gap 10 2 - 15 mmol/L RAUDEL Comment:Testing performed by : [address], [place]., [address] BUN 12 6 - 25 mg/dL RAUDEL Comment:Testing performed by : [address], [place]., [address] Creatinine 0.73 0.60 - 1.10 mg/dL RAUDEL Comment:Testing performed by : [address], [place]., [address] Glucose 104 70 - 199 mg/dL RAUDEL Comment: Interpretive Data Fasting glucose >/= 126 mg/dl is diagnostic for diabetes. Fasting is defined as no caloric intake for at least 8 hours. Fasting glucose between 100 mg/dl to 125 mg/dl is diagnostic of prediabetes. In a patient with classic symptoms of hyperglycemia or hyperglycemic crisis, a random glucose >/= 200 mg/dl is diagnostic for diabetes. In the absence of unequivocal hyperglycemia, results should be confirmed by repeat testing. The classification and Diagnosis of Diabetes Diabetes Care 2021; 46: S19-S40. Current interpretive data was last revised 2022. Testing performed by: [address] [address] Calcium 9.7 8.5 - 10.3 mg/dL RAUDEL Comment:Testing performed by : [address], [place]., [address] Blood 05/31/2025 6:32 AM CDT 05/31/2025 6:40 AM CDT North Pittman MD LAB BLOOD ORDERABLES Final R esult Performing Organization Address City/[facility]/ZIP Co de Phone Number RAUDEL [address] [facility] [place] [address] * SCAN - LABS (05/31/2025 12:00 AM CDT) us Provider Scanning Final Result * eGFR (05/30/2025 5:53 AM CDT) eGFR 88 >=60 mL/min/1. 73 m2 Comment: Interpretive Data Reference Interval Normal >/= 90 mL/min/1.73m2 Mildly decreased* 60 - 89 mL/min/1.73m2 Mildly to moderately decreased 45 - 59 mL/min/1.73m2 Moderately to severely decreased 30 - 44 mL/min/1.73m2 Severely decreased 15 - 29 mL/min/1.73m2 Kidney Failure < 15 mL/min/1.73m2 *Relative to young adult level Estimated glomerular filtration rate is determined by the 2020 CKD-EPI equation recommended by the National Kidney Foundation (A Unifying Approach to GFR Estimation: Recommendations of the NKF-ASK Task Force on Reassessing the Inclusion of Race in Diagnosing Kidney Disease, JASN 2020). The CKD-EPI equation should not be used for patients with unstable renal function and has not been validated in children and those over 70. Current interpretive data was last reviewed 2021. Testing performed by: [facility], [address] [place] [address]., [address] Blood 05/30/2025 5:53 AM CDT 05/30/2025 6:01 AM CDT North Pittman MD LAB BLOOD ORDERABLES Final R esult Performing Organization Address City/[facility]/ZIP Co de Phone Number RAUDEL [address] [facility] [place] [address] * (ABNORMAL) Differential, auto (05/30/2025 5:53 AM CDT) Neutrophil abs 1.73 1.50 - 6.50 K/cumm Comment:Testing performed by : [address] [address] Imm gran abs 0.01 0.00 - 0.10 K/cumm RAUDEL Comment:Testing performed by : [address] [address] Lymphocyte abs 0.47(L) 0.80 - 3.30 K/cumm RAUDEL Comment:Testing performed by : [address] [address] Monocyte abs 0.42 0.20 - 0.80 K/cumm [facility] Comment:Testing performed by : [address] [address] Eosinophil abs 0.42 0.00 - 0.50 K/cumm RAUDEL Comment:Testing performed by : [address] [address] Basophil abs 0.01 0.00 - 0.10 K/cumm [facility] Comment:Testing performed by : [address] [address] Neutrophil pct 56.6 % [facility] Comment: Interpretive Data Percent cell count reference ranges are not reported, since discordance with absolute values may lead to misinterpretation of CBC data. Current Interpretive Data was last revised on 2018. Testing performed by: [address] [address] Imm gran pct 0.3 % [facility] Comment: Interpretive Data Percent cell count reference ranges are not reported, since discordance with absolute values may lead to misinterpretation of CBC data. Current Interpretive Data was last revised on 2018. Testing performed by: [address] [address] Lymphocyte pct 15.4 % [facility] Comment: Interpretive Data Percent cell count reference ranges are not reported, since discordance with absolute values may lead to misinterpretation of CBC data. Current Interpretive Data was last revised on 2018. Testing performed by: [address] [place] [address] Monocyte pct 13.7 % RAUDEL Comment: Interpretive Data Percent cell count reference ranges are not reported, since discordance with absolute values may lead to misinterpretation of CBC data. Current Interpretive Data was last revised on 2018. Testing performed by: [address] [address] Eosinophil pct 13.7 % RAUDEL Comment: Interpretive Data Percent cell count reference ranges are not reported, since discordance with absolute values may lead to misinterpretation of CBC data. Current Interpretive Data was last revised on 2018. Testing performed by: [address] [address] Basophil pct 0.3 % RAUDEL Comment: Interpretive Data Percent cell count reference ranges are not reported, since discordance with absolute values may lead to misinterpretation of CBC data. Current Interpretive Data was last revised on 2018. Testing performed by: [address] [address] Blood 05/30/2025 5:53 AM CDT 05/30/2025 6:01 AM CDT Shelley Montgomery MD LAB BLOOD ORDERABLES Final Result [facility] [facility] Department of Laboratories [place], [place] [id number] * (ABNORMAL) CBC with auto differential (05/30/2025 5:53 AM CDT) WBC 3.06(L) 3.80 - 9.90 K/cumm Comment:Testing performed by : [address] [address] Hgb 8.2(L) 11.9 - 15.5 g/dL RAUDEL [place] Comment:Testing performed by : [address] [address] Hct 26.6(L) 35.6 - 45.5 % RAUDEL Comment:Testing performed by : [address] [address] Plt 173 150 - 400 K/cumm RAUDEL Comment:Testing performed by : [address] [address] MPV 9.2 9.1 - 12.3 fL RAUDEL [place] Comment:Testing performed by : [address] [address] RBC 3.06(L) 3.90 - 5.20 M/cumm RAUDEL Comment:Testing performed by : [address] [address] MCV 86.9 81.3 - 96.4 fL RAUDEL Comment:Testing performed by : [address] [address] MCH 26.8(L) 27.1 - 33.3 pg RAUDEL Comment:Testing performed by : [address] [address] MCHC 30.8(L) 32.3 - 35.7 g/dL RAUDEL Comment:Testing performed by : [address] [address] RDW CV 15.7(H) 11.1 - 14.9 % RAUDEL Comment:Testing performed by : [address] [address] RDW SD 49.1(H) 35.7 - 48.1 fL RAUDEL Comment:Testing performed by : [address] [address] NRBC abs 0.00 0.00 - 0.01 K/cumm RAUDEL Comment:Testing performed by : [address] [address] Blood 05/30/2025 5:53 AM CDT 05/30/2025 6:01 AM CDT us Shelley Montgomery MD LAB BLOOD ORDERABLES Final Result RAUDEL [address] [facility] Department [place] [address] * (ABNORMAL) Comprehensive metabolic panel (05/30/2025 5:53 AM CDT) Sodium 143 135 - 145 mmol/L Comment:Testing performed by : [address] [address] Potassium, pl 3.8 3.3 - 4.9 mmol/L RAUDEL Comment:Testing performed by : [address] [address] Chloride 108 97 - 110 mmol/L RAUDEL Comment:Testing performed by : [address] [address] CO2 27 22 - 32 mmol/L RAUDEL Comment:Testing performed by : [address] [address] Anion gap 8 2 - 15 mmol/L RAUDEL Comment:Testing performed by : [address] [address] BUN 13 6 - 25 mg/dL RAUDEL Comment:Testing performed by : [address] [address] Creatinine 0.73 0.60 - 1.10 mg/dL RAUDEL Comment:Testing performed by : [address] [address] Glucose 98 70 - 199 mg/dL RAUDEL Comment: Interpretive Data Fasting glucose >/= 126 mg/dl is diagnostic for diabetes. Fasting is defined as no caloric intake for at least 8 hours. Fasting glucose between 100 mg/dl to 125 mg/dl is diagnostic of prediabetes. In a patient with classic symptoms of hyperglycemia or hyperglycemic crisis, a random glucose >/= 200 mg/dl is diagnostic for diabetes. In the absence of unequivocal hyperglycemia, results should be confirmed by repeat testing. The classification and Diagnosis of Diabetes Diabetes Care 202; 46: S19-S40. Current interpretive data was last revised 2022. Testing performed by: [address] [address] Calcium 9.1 8.5 - 10.3 mg/dL RAUDEL Comment:Testing performed by : [address] [address] Bilirubin, total 0.2 0.1 - 1.2 mg/dL RAUDEL Comment:Testing performed by : [address], [address] Protein, pl 5.8(L) 6.5 - 8.5 g/dL RAUDEL Comment:Testing performed by : [address], [address] Albumin 3.4(L) 3.5 - 5.0 g/dL RAUDEL Comment:Testing performed by : [address], [address] Alk phos 74 40 - 130 Units/L RAUDEL Comment:Testing performed by : [address], [address] ALT 12 7 - 45 Units/L RAUDEL Comment:Testing performed by : [address], [address] AST 24 10 - 45 Units/L RAUDEL Comment:Testing performed by : [address], [address] Blood 05/30/2025 5:53 AM CDT 05/30/2025 6:01 AM CDT us North Pittman MD LAB BLOOD ORDERABLES Final R esult Performing Organization Address City/State/[facility] Co de Phone Number [place] [phone] [facility] Department [place] [address] * US VEIN DUPLEX LOWER EXTREMITY LEFT LIMITED, UNILATERAL (05/29/2025 8:41 AM CDT) Anatomical Region Laterality Modality Vascular Left Ultrasound 05/29/2025 8:25 AM CDT Narrative 05/30/2025 2:10 PM CDT Lower Extremity Venous Report Patient Name: JULIANNA ALBARRAN J : 1955 (69y 5m) Gender: F Study Date: 05/29/2025 08:25:09 AM Retail Advisor: Genny Yost RDMS,T Location: [id number] Order Provider: SHELLEY AMEZQUITA Quality: Limited Ref Provider: CRISTA BHANDARIJADSHELLEY OCAMPO PROCEDURES: Vascular Report: A non-invasive vascular imaging study of the left lower extremity veins was performed using B-mode ultrasound, color flow, and spectral Doppler. INDICATIONS: Left leg pain, swelling and redness. COMPARISONS: The previous exam was completed on 06/23/2021. Previous venous doppler reported negative for DVT bilaterally. FINDINGS: Left: Negative for deep and superficial vein thrombosis in the left lower extremity. Normal compressibility and color filling, spontaneous and phasic flow, and response to distal augmentation is demonstrated in the left common femoral vein, saphenofemoral junction, proximal femoral vein, mid femoral vein, distal femoral vein, profunda vein, popliteal vein, posterior tibial veins and peroneal veins. For comparisons purposes, the right common femoral vein was interrogated. The common femoral vein Doppler flow was phasic, spontaneous and responded normally to distal augmentation. Provider Notification: Prelim results entered into Epic study notes. CONCLUSIONS: 1. There is no evidence of deep vein thrombosis in the left lower extremity. ATTESTATION: I have reviewed and interpreted the pertinent images and measurements of this study. I attest to the conclusions in the final report that is provided above. Electronically Signed By: Rob Mckenzie MD 05/30/2025 2:09:06 PM CDT Procedure Note Rob Mckenzie MD - 05/30/2025 Lower Extremity Venous Report Patient Name: JULIANNA ALBARRAN J : 1955 (69y 5m) Gender: F Study Date: 05/29/2025 08:25:09 AM Retail Advisor: Genny Yost RDMS, RVT Location:[place] [address] Order Provider: SHELLEY AMEZQUITA Quality: Limited Ref Provider: SHELLEY AMEZQUITA PROCEDURES: Vascular Report: A non-invasive vascular imaging study of the left lowerextremity veins was performed using B-mode ultrasound, color flow, and spectral Doppler. INDICATIONS: Left leg pain, swelling and redness. COMPARISONS: The previous exam was completed on 06/23/2021. Previous venous dopplerreported negative for DVT bilaterally. FINDINGS: Left: Negative for deep and superficial vein thrombosis in the left lowerextremity. Normal compressibility and color filling, spontaneous and phasic flow, andresponse to distal augmentation is demonstrated in the left common femoral vein,saphenofemoral junction, proximal femoral vein, mid femoral vein, distal femoral vein,profunda vein, popliteal vein, posterior tibial veins and peroneal veins. For comparisonspurposes, the right common femoral vein was interrogated. The common femoral veinDoppler flow was phasic, spontaneous and responded normally to distal augmentation. Provider Notification: Prelim results entered into Epic study notes. CONCLUSIONS: 1. There is no evidence of deep vein thrombosis in the left lowerextremity. ATTESTATION: I have reviewed and interpreted the pertinent images and measurements ofthis study. I attest to the conclusions in the final report that is provided above. Electronically Signed By: Rob Mckenzie MD 05/30/2025 2:09:06 PM CDT us Shelley Montgomery MD [facility] [place] Final Result * eGFR (05/29/2025 4:56 AM CDT) eGFR 79 >=60 mL/min/1. 73 m2 Comment: Interpretive Data Reference Interval Normal >/= 90 mL/min/1.73m2 Mildly decreased* 60 - 89 mL/min/1.73m2 Mildly to moderately decreased 45 - 59 mL/min/1.73m2 Moderately to severely decreased 30 - 44 mL/min/1.73m2 Severely decreased 15 - 29 mL/min/1.73m2 Kidney Failure < 15 mL/min/1.73m2 *Relative to young adult level Estimated glomerular filtration rate is determined by the 2020 CKD-EPI equation recommended by the National Kidney Foundation (A Unifying Approach to GFR Estimation: Recommendations of the NKF-ASK Task Force on Reassessing the Inclusion of Race in Diagnosing Kidney Disease, JASN 2020). The CKD-EPI equation should not be used for patients with unstable renal function and has not been validated in children and those over 70. Current interpretive data was last reviewed 2021. Testing performed by: [address] [address] Blood 05/29/2025 4:56 AM CDT 05/29/2025 6:01 AM CDT us North Pittman MD LAB BLOOD ORDERABLES Final R esult [id number] PY [address] [facility] [place] [address] * (ABNORMAL) Differential, auto (05/29/2025 4:56 AM CDT) Neutrophil abs 2.34 1.50 - 6.50 K/cumm Comment:Testing performed by : [address] [place] [address] Imm gran abs 0.00 0.00 - 0.10 K/cumm [facility] Comment:Testing performed by : [address] [address] Lymphocyte abs 0.58(L) 0.80 - 3.30 K/cumm [facility] Comment:Testing performed by : [address] [address] Monocyte abs 0.47 0.20 - 0.80 K/cumm [facility] Comment:Testing performed by : [address], [place]., [address] Eosinophil abs 0.38 0.00 - 0.50 K/cumm [facility] Comment:Testing performed by : [address] [address] Basophil abs 0.02 0.00 - 0.10 K/cumm [facility] Comment:Testing performed by : [address] [address] Neutrophil pct 61.8 % [facility] Comment: Interpretive Data Percent cell count reference ranges are not reported, since discordance with absolute values may lead to misinterpretation of CBC data. Current Interpretive Data was last revised on 2018. Testing performed by: [address] [address] Imm gran pct 0.0 % [facility] Comment: Interpretive Data Percent cell count reference ranges are not reported, since discordance with absolute values may lead to misinterpretation of CBC data. Current Interpretive Data was last revised on 2018. Testing performed by: [address] [address] Lymphocyte pct 15.3 % CERNER Comment: Interpretive Data Percent cell count reference ranges are not reported, since discordance with absolute values may lead to misinterpretation of CBC data. Current Interpretive Data was last revised on 2018. Testing performed by: [address] [address] Monocyte pct 12.4 % [facility] Comment: Interpretive Data Percent cell count reference ranges are not reported, since discordance with absolute values may lead to misinterpretation of CBC data. Current Interpretive Data was last revised on 2018. Testing performed by: [address] [address] Eosinophil pct 10.0 % RAUDEL Comment: Interpretive Data Percent cell count reference ranges are not reported, since discordance with absolute values may lead to misinterpretation of CBC data. Current Interpretive Data was last revised on 2018. Testing performed by: [address] [address] Basophil pct 0.5 % RAUDEL Comment: Interpretive Data Percent cell count reference ranges are not reported, since discordance with absolute values may lead to misinterpretation of CBC data. Current Interpretive Data was last revised on 2018. Testing performed by: [address] [address] Blood 05/29/2025 4:56 AM CDT 05/29/2025 6:01 AM CDT Shelley Montgomery MD LAB BLOOD ORDERABLES Final Result [facility] [address] [facility] Department of Laboratories [place], [place] [id number] * (ABNORMAL) CBC with auto differential (05/29/2025 4:56 AM CDT) Pathologist [facility] WBC 3.79(L) 3.80 - 9.90 K/cumm Comment:Testing performed by : [address] [address] Hgb 8.7(L) 11.9 - 15.5 g/dL RAUDEL Comment:Testing performed by : [address] [address] Hct 28.3(L) 35.6 - 45.5 % RAUDEL Comment:Testing performed by : [address] [address] Plt 215 150 - 400 K/cumm RAUDEL Comment:Testing performed by : [address] [address] MPV 10.0 9.1 - 12.3 fL RAUDEL [place] Comment:Testing performed by : [address] [address] RBC 3.25(L) 3.90 - 5.20 M/cumm RAUDEL [place] Comment:Testing performed by : [address] [address] MCV 87.1 81.3 - 96.4 fL RAUDEL Comment:Testing performed by : [address] [address] MCH 26.8(L) 27.1 - 33.3 pg RAUDEL Comment:Testing performed by : [address] [address] MCHC 30.7(L) 32.3 - 35.7 g/dL RAUDEL Comment:Testing performed by : [address] [address] RDW CV 15.7(H) 11.1 - 14.9 % RAUDEL Comment:Testing performed by : [address] [address] RDW SD 49.1(H) 35.7 - 48.1 fL RAUDEL Comment:Testing performed by : [address] [address] NRBC abs 0.00 0.00 - 0.01 K/cumm RAUDEL Comment:Testing performed by : [address] [address] Blood 05/29/2025 4:56 AM CDT 05/29/2025 6:01 AM CDT us Shelley Montgomery MD LAB BLOOD ORDERABLES Final Result RAUDEL [place] [address] [facility] Department of Laboratories [place], [place] [id number] * (ABNORMAL) Hemoglobin A1c (05/29/2025 4:56 AM CDT) Hgb A1C 6.0(H) 4.0 - 5.6 % Comment:Testing performed by : [address] [address] Estimated Average Glucose 126 mg/dL RAUDEL [place] Comment: The ADA recommends reporting an estimated Average Glucose (eAG) with all Hemoglobin A1c results using the equation derived from a study of 507 normal and diabetic adults. Minority populations were underrepresented and children were not included. (Diabetes Care 31:3756-0224, 2008). The eAG is not equivalent to a fasting glucose. Testing performed by: [address] [address] Blood 05/29/2025 4:56 AM CDT 05/29/2025 6:01 AM CDT Shelley Montgomery MD LAB BLOOD ORDERABLES Final Result RAUDEL [facility] Department [place] [address] * Basic metabolic panel (05/29/2025 4:56 AM CDT) Sodium 142 135 - 145 mmol/L Comment:Testing performed by : [address] [address] Potassium, pl 4.5 3.3 - 4.9 mmol/L RAUDEL [place] Comment:Testing performed by : [address] [address] Chloride 105 97 - 110 mmol/L RAUDEL Comment:Testing performed by : [address] [address] CO2 31 22 - 32 mmol/L RAUDEL Comment:Testing performed by : [address] [address] Anion gap 6 2 - 15 mmol/L RAUDEL Comment:Testing performed by : [address] [address] BUN 15 6 - 25 mg/dL RAUDEL Comment:Testing performed by : [address] [address] Creatinine 0.80 0.60 - 1.10 mg/dL RAUDEL [place] Comment:Testing performed by : [address] [address] Glucose 97 70 - 199 mg/dL RAUDEL Comment: Interpretive Data Fasting glucose >/= 126 mg/dl is diagnostic for diabetes. Fasting is defined as no caloric intake for at least 8 hours. Fasting glucose between 100 mg/dl to 125 mg/dl is diagnostic of prediabetes. In a patient with classic symptoms of hyperglycemia or hyperglycemic crisis, a random glucose >/= 200 mg/dl is diagnostic for diabetes. In the absence of unequivocal hyperglycemia, results should be confirmed by repeat testing. The classification and Diagnosis of Diabetes Diabetes Care 2021; 46: S19-S40. Current interpretive data was last revised 2022. Testing performed by: [address] [address] Calcium 9.1 8.5 - 10.3 mg/dL RAUDEL Comment:Testing performed by : [address] [address] Blood 05/29/2025 4:56 AM CDT 05/29/2025 6:01 AM CDT us North Pittman MD LAB BLOOD ORDERABLES Final R esult Performing Organization Address City/State/[facility] Co de Phone Number RAUDEL [address] [facility] Department [place] [address] * CT Lumbar Spine WO Contrast (05/28/2025 9:47 PM CDT) Anatomical Region Laterality Modality Spine N/A Computed Tomogra phy 05/29/2025 1:28 AM CDT Narrative 05/29/2025 1:32 AM CDT EXAM DESCRIPTION: CT LUMBAR SPINE WO CONTRAST REASON FOR STUDY: Low back pain, increased fracture risk Low back pain, increased fracture risk - hx L-spine surgery in November TECHNIQUE: Axial images acquired through the lumbar spine without intravenous contrast. Reconstructed coronal and sagittal MPR images reviewed. All images stored on PACS. Automated exposure control was used as a dose optimization technique for this examination. COMPARISON: 06/12/2021 FINDINGS: VERTEBRAE: Vertebral bodies are normal in height and alignment. Extensive fusion hardware from L3 through S1. Advanced T12-L1 disc disease. Facet joints unremarkable. No fracture, malalignment, or suspicious osseous lesion is seen. Central canal and neural foramina are grossly patent. OTHER OSSEOUS: Unremarkable. SOFT TISSUES: Cholecystectomy. Noninflamed colonic diverticula. IMPRESSION: No acute abnormality identified. Extensive hardware stabilization from L3 through S1 grossly intact. THIS IS AN ELECTRONICALLY VERIFIED FINAL REPORT 05/29/2025 1:32 AM - Electronically signed by Osvaldo Gan M.D. AR: SANDOR Report ID: [id number] Reading Location: [place] [address] Procedure Note Osvaldo Gan MD - 05/29/2025 EXAM DESCRIPTION: CT LUMBAR SPINE WO CONTRAST REASON FOR STUDY: Low back pain, increased fracture risk Low back pain, increased fracture risk - hx L-spine surgery in November TECHNIQUE: Axial images acquired through the lumbar spine withoutintravenous contrast. Reconstructed coronal and sagittal MPR images reviewed. Allimages stored on PACS. Automated exposure control was used as a dose optimization technique forthis examination. COMPARISON: 06/12/2021 FINDINGS: VERTEBRAE: Vertebral bodies are normal in height and alignment.Extensive fusion hardware from L3 through S1. Advanced T12-L1 disc disease.Facet joints unremarkable. No fracture, malalignment, or suspicious osseouslesion is seen. Central canal and neural foramina are grossly patent. OTHER OSSEOUS: Unremarkable. SOFT TISSUES: Cholecystectomy. Noninflamed colonic diverticula. IMPRESSION: No acute abnormality identified. Extensive hardwarestabilization from L3 through S1 grossly intact. THIS IS AN ELECTRONICALLY VERIFIED FINAL REPORT 05/29/2025 1:32 AM - Electronically signed by Osvaldo Gan M.D. AR: SANDOR Report ID: [id number] Reading Location: [place] [address] us Nilupa Haylee Montgomery MD IMG CT [place] OCEDURES Final Result * Blood culture Blood (05/28/2025 7:55 PM CDT) Report Final Report: No growth Comment:Testing performed by : [facility], [address] [facility] [place]., [address] Blood 05/28/2025 7:55 PM CDT 05/29/2025 12:03 AM CDT Narrative RAUDEL HOUSTON - 06/02/2025 7:01 AM CDT From a different site than #1. Collection->Peripheral 1. Blood cultures are incubated for 4 days on a continuously monitored blood culture system. The first report of a negative culture is issued within 24 hours of receipt of the specimen in the laboratory. 2. Positive culture results are reported as soon as they are detected. 3. The most important factor for detection of microbes in the setting of bloodstream infection is the volume of blood submitted for culture. Failure to collect an optimal blood volume can result in false negative blood cultures. 4. For pediatric patients, the recommended blood volume to collect follows a weight based strategy. See the electronic test catalog for collection instructions. 5. For positive blood cultures, a rapid molecular test may be performed for organism identification using the thom ePlex blood culture identification panel for gram positive (BCID-GP) and gram negative (BCID-GN) organisms. This nucleic acid amplification test detects microbial DNA in positive blood culture broth. This assay has been cleared by the [place] Food and Drug Administration and its performance characteristics have been verified by the [facility] Microbiology Laboratory. For questions about this culture, contact the Microbiology Laboratory at [phone]. Interpretive data was last revised on 24. Shelley petit MD LAB MICROBIOLOGY - GENERAL ORDERABLES Final Result RAUDEL HOUSTON [address] [facility] [place] [address] * Blood culture Blood (05/28/2025 7:55 PM CDT) Report Final Report: No growth Comment:Testing performed by : [facility], [address] [facility] [place]., [address] Blood 05/28/2025 7:55 PM CDT 05/29/2025 12:03 AM CDT Narrative RAUDEL HOUSTON - 06/02/2025 7:01 AM CDT Collection->Peripheral 1. Blood cultures are incubated for 4 days on a continuously monitored blood culture system. The first report of a negative culture is issued within 24 hours of receipt of the specimen in the laboratory. 2. Positive culture results are reported as soon as they are detected. 3. The most important factor for detection of microbes in the setting of bloodstream infection is the volume of blood submitted for culture. Failure to collect an optimal blood volume can result in false negative blood cultures. 4. For pediatric patients, the recommended blood volume to collect follows a weight based strategy. See the electronic test catalog for collection instructions. 5. For positive blood cultures, a rapid molecular test may be performed for organism identification using the thom ePlex blood culture identification panel for gram positive (BCID-GP) and gram negative (BCID-GN) organisms. This nucleic acid amplification test detects microbial DNA in positive blood culture broth. This assay has been cleared by the [place] Food and Drug Administration and its performance characteristics have been verified by the [facility] Microbiology Laboratory. For questions about this culture, contact the Microbiology Laboratory at [phone]. Interpretive data was last revised on 24. us Shelley petit MD LAB MICROBIOLOGY - GENERAL ORDERABLES Final Result RAUDEL HOUSTON [address] [facility] Department [place] [address] * (ABNORMAL) Erythrocyte sedimentation rate (05/28/2025 7:34 PM CDT) [facility] Erythrocyte sedimentation rate 34(H) 1 - 30 mm/hr Comment:Testing performed by : [facility], [address] [place] [address]., [address] Blood 05/28/2025 7:34 PM CDT 05/28/2025 7:41 PM CDT us Nilupa Sewwandi Gaspe Mudiyanselage MD LAB BLOOD ORDERABLES Final Result Performing Organization Address [facility] Co de Phone Number JOSE [address] [address] * CRP (acute phase) (05/28/2025 7:34 PM CDT) CRP 5.6 <=10.0 mg/L Comment:Testing performed by : [address] [address] Blood 05/28/2025 7:34 PM CDT 05/28/2025 7:41 PM CDT Shelley Montgomery MD LAB BLOOD ORDERABLES Final Result Performing Organization Address [facility] Co de Phone Number [address] [address] * Creatine kinase (CK), total (05/28/2025 7:34 PM CDT) CK 71 30 - 200 Units/L Comment:Testing performed by : [address] [address] Blood 05/28/2025 7:34 PM CDT 05/28/2025 7:41 PM CDT Shelley Montgomery MD LAB BLOOD ORDERABLES Final Result Performing Organization Address [facility] Co de Phone Number [address] [address] * Creatine kinase (CK), total (05/28/2025 5:28 PM CDT) CK 72 30 - 200 Units/L Comment:Testing performed by : [address] [address] Blood 05/28/2025 5:28 PM CDT 05/28/2025 5:30 PM CDT us Collin Mckeon DO LAB BLOOD ORDERABLES Final Result RAUDEL MH [address] [facility] Department [place] [address] * XR Knee Left 1 or 2 Views (05/28/2025 1:15 PM CDT) Anatomical Region Laterality Modality Lower Extremities, Knee Left Computed Radiography 05/28/2025 1:29 PM CDT Narrative 05/28/2025 1:30 PM CDT EXAM DESCRIPTION: XR KNEE LEFT 1 OR 2 VIEWS REASON FOR STUDY: pain Pt states had knee surgery 05/07/25 fell 05/28/25 having pain since TECHNIQUE: Frontal and lateral radiographic view(s) of the knee . COMPARISON: 05/13/2025 FINDINGS: There is mild osteopenia. Postsurgical changes of long stem left knee arthroplasty are noted. There is grossly stable alignment. There is no definite evidence of a hardware abnormality or acute fracture. There is mild prepatellar soft tissue swelling, which is likely postsurgical. There are skin elan noted anteriorly. IMPRESSION: 1. Mild osteopenia with postsurgical changes of long stem left knee arthroplasty noted without definite evidence of hardware abnormality or acute fracture. 2. Mild prepatellar soft tissue swelling, which is likely postsurgical. THIS IS AN ELECTRONICALLY VERIFIED FINAL REPORT 05/28/2025 1:30 PM - Electronically signed by Stalin Jones D.O. PS: PS Report ID: [id number] Reading Location: [id number] Procedure Note Stalin Jones DO - 05/28/2025 EXAM DESCRIPTION: XR KNEE LEFT 1 OR 2 VIEWS REASON FOR STUDY: pain Pt states had knee surgery 05/07/25 fell 05/28/25 having pain since TECHNIQUE: Frontal and lateral radiographic view(s) of the knee . COMPARISON: 05/13/2025 FINDINGS: There is mild osteopenia. Postsurgical changes of long stemleft knee arthroplasty are noted. There is grossly stable alignment. There isno definite evidence of a hardware abnormality or acute fracture. There ismild prepatellar soft tissue swelling, which is likely postsurgical. There are skin elan noted anteriorly. IMPRESSION: 1. Mild osteopenia with postsurgical changes of long stem left knee arthroplasty noted without definite evidence of hardware abnormality oracute fracture. 2. Mild prepatellar soft tissue swelling, which is likelypostsurgical. THIS IS AN ELECTRONICALLY VERIFIED FINAL REPORT 05/28/2025 1:30 PM - Electronically signed by Stalin Jones D.O. PS: PS Report ID: [id number] Reading Location: [place] [address] us Collin Mckeon DO IMG XR PROCEDURES Final Res ult * XR Spine Lumbar 2 or 3 Views (05/28/2025 1:15 PM CDT) Anatomical Region Laterality Modality Spine N/A Computed Radiogr aphy 05/28/2025 1:25 PM CDT Narrative 05/28/2025 1:27 PM CDT EXAM DESCRIPTION: XR SPINE LUMBAR 2 OR 3 VIEWS REASON FOR STUDY: pain Pt states had knee surgery 05/07/25 fell 05/28/25 having pain since TECHNIQUE: 3 radiographic view(s) of the lumbar spine. COMPARISON: None FINDINGS: There is mild osteopenia. There is no definite evidence of acute fracture or subluxation involving the lumbar spine. Postsurgical changes of posterior laminectomy are noted involving L3-L5. Postsurgical changes of posterior lumbosacral fusion are noted involving L3-S1 with pedicle screws, fusion rods, and intervertebral disc spacer devices. Postsurgical changes of anterior lumbosacral fusion are noted involving L5-S1 with fixation plate and screws. There is a mild dextroscoliotic curvature of the lumbar spine centered at L3. There are multilevel degenerative changes lumbar spine with disc space narrowing, endplate osteophytosis, and facet arthropathy. There are degenerative changes bilateral sacroiliac joints with joint space narrowing and mild sclerosis. There are multiple phleboliths noted overlying the pelvis. IMPRESSION: 1. Mild osteopenia with multilevel lumbar spondylosis with postsurgical changes. No definite evidence of acute fracture or subluxation. THIS IS AN ELECTRONICALLY VERIFIED FINAL REPORT 05/28/2025 1:27 PM - Electronically signed by Stalin Jones D.O. PS: PS Report ID: [id number] Reading Location: [id number] Procedure Note Stalin Jones DO - 05/28/2025 EXAM DESCRIPTION: XR SPINE LUMBAR 2 OR 3 VIEWS REASON FOR STUDY: pain Pt states had knee surgery 05/07/25 fell 05/28/25 having pain since TECHNIQUE: 3 radiographic view(s) of the lumbar spine. COMPARISON: None FINDINGS: There is mild osteopenia. There is no definite evidence ofacute fracture or subluxation involving the lumbar spine. Postsurgical changesof posterior laminectomy are noted involving L3-L5. Postsurgical changes of posterior lumbosacral fusion are noted involving L3-S1 with pediclescrews, fusion rods, and intervertebral disc spacer devices. Postsurgical changesof anterior lumbosacral fusion are noted involving L5-S1 with fixation plateand screws. There is a mild dextroscoliotic curvature of the lumbar spine centered at L3. There are multilevel degenerative changes lumbar spinewith disc space narrowing, endplate osteophytosis, and facet arthropathy.There are degenerative changes bilateral sacroiliac joints with joint space narrowing and mild sclerosis. There are multiple phleboliths notedoverlying the pelvis. IMPRESSION: 1. Mild osteopenia with multilevel lumbar spondylosis with postsurgical changes. No definite evidence of acute fracture or subluxation. THIS IS AN ELECTRONICALLY VERIFIED FINAL REPORT 05/28/2025 1:27 PM - Electronically signed by Stalin Jones D.O. PS: PS Report ID: [id number] Reading Location: [place] [address] us Collin Mckeon DO IMG XR PROCEDURES Final Res ult * eGFR (05/28/2025 12:28 PM CDT) eGFR 73 >=60 mL/min/1. 73 m2 Comment: Interpretive Data Reference Interval Normal >/= 90 mL/min/1.73m2 Mildly decreased* 60 - 89 mL/min/1.73m2 Mildly to moderately decreased 45 - 59 mL/min/1.73m2 Moderately to severely decreased 30 - 44 mL/min/1.73m2 Severely decreased 15 - 29 mL/min/1.73m2 Kidney Failure < 15 mL/min/1.73m2 *Relative to young adult level Estimated glomerular filtration rate is determined by the 2020 CKD-EPI equation recommended by the National Kidney Foundation (A Unifying Approach to GFR Estimation: Recommendations of the NKF-ASK Task Force on Reassessing the Inclusion of Race in Diagnosing Kidney Disease, JASN 2020). The CKD-EPI equation should not be used for patients with unstable renal function and has not been validated in children and those over 70. Current interpretive data was last reviewed 2021. Testing performed by: [address] [address] Blood 05/28/2025 12:2 8 PM CDT 05/28/2025 12:35 PM CDT Collin Mckeon DO LAB BLOOD ORDERABLES Final Result RAUDEL HOUSTON [address] [facility] Department [place] [address] * (ABNORMAL) Differential, auto (05/28/2025 12:28 PM CDT) Pathologist [facility] Neutrophil abs 2.77 1.50 - 6.50 K/cumm Comment:Testing performed by : [address] [address] Imm gran abs 0.02 0.00 - 0.10 K/cumm RAUDEL HOUSTON Comment:Testing performed by : [address] [address] Lymphocyte abs 0.78(L) 0.80 - 3.30 K/cumm RAUDEL HOUSTON Comment:Testing performed by : [address] [address] Monocyte abs 0.49 0.20 - 0.80 K/cumm [facility] Comment:Testing performed by : [address] [address] Eosinophil abs 0.40 0.00 - 0.50 K/cumm [facility] Comment:Testing performed by : [address] [address] Basophil abs 0.03 0.00 - 0.10 K/cumm [facility] Comment:Testing performed by : [address] [address] Neutrophil pct 61.7 % [facility] Comment: Interpretive Data Percent cell count reference ranges are not reported, since discordance with absolute values may lead to misinterpretation of CBC data. Current Interpretive Data was last revised on 2018. Testing performed by: [address] [address] Imm gran pct 0.4 % [facility] Comment: Interpretive Data Percent cell count reference ranges are not reported, since discordance with absolute values may lead to misinterpretation of CBC data. Current Interpretive Data was last revised on 2018. Testing performed by: [address] [address] Lymphocyte pct 17.4 % [facility] Comment: Interpretive Data Percent cell count reference ranges are not reported, since discordance with absolute values may lead to misinterpretation of CBC data. Current Interpretive Data was last revised on 2018. Testing performed by: [address] [address] Monocyte pct 10.9 % [facility] Comment: Interpretive Data Percent cell count reference ranges are not reported, since discordance with absolute values may lead to misinterpretation of CBC data. Current Interpretive Data was last revised on 2018. Testing performed by: [address] [address] Eosinophil pct 8.9 % [facility] Comment: Interpretive Data Percent cell count reference ranges are not reported, since discordance with absolute values may lead to misinterpretation of CBC data. Current Interpretive Data was last revised on 2018. Testing performed by: [address] [address] Basophil pct 0.7 % RAUDEL Comment: Interpretive Data Percent cell count reference ranges are not reported, since discordance with absolute values may lead to misinterpretation of CBC data. Current Interpretive Data was last revised on 2018. Testing performed by: [address] [address] Blood 05/28/2025 12:2 8 PM CDT 05/28/2025 12:35 PM CDT us Collin Mckeon DO LAB BLOOD ORDERABLES Final Result RAUDEL [address] [facility] Department [place] [address] * (ABNORMAL) CBC with auto differential (05/28/2025 12:28 PM CDT) WBC 4.49 3.80 - 9.90 K/cumm Comment:Testing performed by : [address] [address] Hgb 9.6(L) 11.9 - 15.5 g/dL RAUDEL Comment:Testing performed by : [address] [address] Hct 31.2(L) 35.6 - 45.5 % RAUDEL Comment:Testing performed by : [address] [address] Plt 254 150 - 400 K/cumm RAUDEL Comment:Testing performed by : [address] [address] MPV 9.1 9.1 - 12.3 fL RAUDEL Comment:Testing performed by : [address] [address] RBC 3.59(L) 3.90 - 5.20 M/cumm RAUDEL Comment:Testing performed by : [address] [address] MCV 86.9 81.3 - 96.4 fL RAUDEL Comment:Testing performed by : [address] [address] MCH 26.7(L) 27.1 - 33.3 pg RAUDEL HOUSTON Comment:Testing performed by : [address] [address] MCHC 30.8(L) 32.3 - 35.7 g/dL RAUDEL HOUSTON Comment:Testing performed by : [address] [address] RDW CV 15.6(H) 11.1 - 14.9 % RAUDEL Comment:Testing performed by : [address] [address] RDW SD 49.0(H) 35.7 - 48.1 fL RAUDEL Comment:Testing performed by : [address] [address] NRBC abs 0.00 0.00 - 0.01 K/cumm RAUDEL Comment:Testing performed by : [address], [address] Blood 05/28/2025 12:2 8 PM CDT 05/28/2025 12:35 PM CDT Collin Mckeon DO LAB BLOOD ORDERABLES Final Result Performing Organization Address [facility]/ZIP Co de Phone Number [address] [place] [address] * Creatine kinase (CK), total (05/28/2025 12:28 PM CDT) CK 73 30 - 200 Units/L Comment:Testing performed by : [address] [address] Blood 05/28/2025 12:2 8 PM CDT 05/28/2025 12:35 PM CDT Collin Mckeon DO LAB BLOOD ORDERABLES Final Result [address] [place] [address] * Comprehensive metabolic panel (05/28/2025 12:28 PM CDT) Sodium 142 135 - 145 mmol/L Comment:Testing performed by : [address] [address] Potassium, pl 4.3 3.3 - 4.9 mmol/L [facility] Comment:Testing performed by : [address], [place]., [address] Chloride 102 97 - 110 mmol/L [facility] Comment:Testing performed by : [address], [place]., [address] CO2 29 22 - 32 mmol/L [facility] Comment:Testing performed by : [address], [place]., [address] Anion gap 11 2 - 15 mmol/L [facility] Comment:Testing performed by : [address] [address] BUN 16 6 - 25 mg/dL [facility] Comment:Testing performed by : [address], [place]., [address] Creatinine 0.86 0.60 - 1.10 mg/dL [facility] Comment:Testing performed by : [address] [address] Glucose 104 70 - 199 mg/dL [facility] Comment: Interpretive Data Fasting glucose >/= 126 mg/dl is diagnostic for diabetes. Fasting is defined as no caloric intake for at least 8 hours. Fasting glucose between 100 mg/dl to 125 mg/dl is diagnostic of prediabetes. In a patient with classic symptoms of hyperglycemia or hyperglycemic crisis, a random glucose >/= 200 mg/dl is diagnostic for diabetes. In the absence of unequivocal hyperglycemia, results should be confirmed by repeat testing. The classification and Diagnosis of Diabetes Diabetes Care 202; 46: S19-S40. Current interpretive data was last revised 2022. Testing performed by: [address] [address] Calcium 9.6 8.5 - 10.3 mg/dL [facility] Comment:Testing performed by : [address] [address] Bilirubin, total 0.2 0.1 - 1.2 mg/dL RAUDEL Comment:Testing performed by : [address] [address] Protein, pl 6.8 6.5 - 8.5 g/dL RAUDEL Comment:Testing performed by : [address] [address] Albumin 3.9 3.5 - 5.0 g/dL RAUDEL Comment:Testing performed by : [address] [address] Alk phos 89 40 - 130 Units/L RAUDEL Comment:Testing performed by : [address] [address] ALT 14 7 - 45 Units/L RAUDEL Comment:Testing performed by : [address] [address] AST 31 10 - 45 Units/L RAUDEL Comment:Testing performed by : [address] [address] Blood 05/28/2025 12:2 8 PM CDT 05/28/2025 12:35 PM CDT Collin Mckeon DO LAB BLOOD ORDERABLES Final Result RAUDEL [address] [facility] [place] [address] * (ABNORMAL) eGFR (05/16/2025 9:45 PM CDT) eGFR 53(L) >=60 mL/min/1. 73 m2 Comment: Interpretive Data Reference Interval Normal >/= 90 mL/min/1.73m2 Mildly decreased* 60 - 89 mL/min/1.73m2 Mildly to moderately decreased 45 - 59 mL/min/1.73m2 Moderately to severely decreased 30 - 44 mL/min/1.73m2 Severely decreased 15 - 29 mL/min/1.73m2 Kidney Failure < 15 mL/min/1.73m2 *Relative to young adult level Estimated glomerular filtration rate is determined by the 2020 CKD-EPI equation recommended by the National Kidney Foundation (A Unifying Approach to GFR Estimation: Recommendations of the NKF-ASK Task Force on Reassessing the Inclusion of Race in Diagnosing Kidney Disease, JASN 202). The CKD-EPI equation should not be used for patients with unstable renal function and has not been validated in children and those over 70. Current interpretive data was last reviewed 2021. Blood 05/16/2025 9:45 PM CDT 05/16/2025 10:01 PM CDT us Cosmo Gallagher NP LAB BLOOD ORDERABLES Janett l Result [facility] Department [place] [address] * (ABNORMAL) CBC without differential (05/16/2025 9:45 PM CDT) WBC 5.41 3.80 - 9.90 K/cumm Hgb 9.6(L) 11.9 - 15.5 g/dL [facility] Hct 30.4(L) 35.6 - 45.5 % [facility] Plt 323 150 - 400 K/cumm [facility] MPV 9.3 9.1 - 12.3 fL [facility] RBC 3.63(L) 3.90 - 5.20 M/cumm [facility] MCV 83.7 81.3 - 96.4 fL [facility] MCH 26.4(L) 27.1 - 33.3 pg [facility] MCHC 31.6(L) 32.3 - 35.7 g/dL [facility] RDW CV 15.7(H) 11.1 - 14.9 % [facility] RDW SD 47.9 35.7 - 48.1 fL [facility] NRBC abs 0.00 0.00 - 0.01 K/cumm [facility] Blood 05/16/2025 9:4 5 PM CDT 05/16/2025 10:01 PM CDT Cosmo Saniya Elliott INTELLIGENCE DIRECTOR LAB BLOOD ORDERABLES Janett l Result [facility] Department [place] [address] * (ABNORMAL) Basic metabolic panel (05/16/2025 9:45 PM CDT) Sodium 142 135 - 145 mmol/L Potassium, pl 4.1 3.3 - 4.9 mmol/L [facility] Chloride 103 97 - 110 mmol/L [facility] CO2 30 22 - 32 mmol/L [facility] Anion gap 9 2 - 15 mmol/L [facility] BUN 21 6 - 25 mg/dL [facility] Creatinine 1.11(H) 0.60 - 1.10 mg/dL [facility] Glucose 113 70 - 199 mg/dL [facility] Comment: Interpretive Data Fasting glucose >/= 126 mg/dl is diagnostic for diabetes. Fasting is defined as no caloric intake for at least 8 hours. Fasting glucose between 100 mg/dl to 125 mg/dl is diagnostic of prediabetes. In a patient with classic symptoms of hyperglycemia or hyperglycemic crisis, a random glucose >/= 200 mg/dl is diagnostic for diabetes. In the absence of unequivocal hyperglycemia, results should be confirmed by repeat testing. The classification and Diagnosis of Diabetes Diabetes Care 2021; 46: S19-S40. Current interpretive data was last revised 2022. Calcium 9.9 8.5 - 10.3 mg/dL [facility] Blood 05/16/2025 9:45 PM CDT 05/16/2025 10:01 PM CDT Cosmo Gallagher NP LAB BLOOD ORDERABLES Janett l Result Performing Organization Address [facility]/ZIP Co de Phone Number [facility] Department [place] [address] * Creatine kinase (CK), total (05/16/2025 11:39 AM CDT) Pathologist [facility] CK 72 30 - 200 Units/L Blood 05/16/2025 11:3 9 AM CDT 05/16/2025 12:00 PM CDT us Janae Thorpe INTELLIGENCE DIRECTOR LAB BLOOD ORDERABLES Final Result Performing Organization Address [facility]/ZIP Co de Phone Number [facility] [place] [address] * Vancomycin level trough (05/16/2025 10:18 AM CDT) Vancomycin trough 15.7 10.0 - 20.0 mcg/mL Blood 05/16/2025 10:1 8 AM CDT 05/16/2025 10:31 AM CDT Krys Rabago INTELLIGENCE DIRECTOR LAB BLOOD ORDERABLES Janett l Result Performing Organization Address [facility] Co de Phone Number [facility] [place] [address] * (ABNORMAL) eGFR (05/15/2025 10:12 PM CDT) eGFR 49(L) >=60 mL/min/1. 73 m2 Comment: Interpretive Data Reference Interval Normal >/= 90 mL/min/1.73m2 Mildly decreased* 60 - 89 mL/min/1.73m2 Mildly to moderately decreased 45 - 59 mL/min/1.73m2 Moderately to severely decreased 30 - 44 mL/min/1.73m2 Severely decreased 15 - 29 mL/min/1.73m2 Kidney Failure < 15 mL/min/1.73m2 *Relative to young adult level Estimated glomerular filtration rate is determined by the 2020 CKD-EPI equation recommended by the National Kidney Foundation (A Unifying Approach to GFR Estimation: Recommendations of the NKF-ASK Task Force on Reassessing the Inclusion of Race in Diagnosing Kidney Disease, JASN 2020). The CKD-EPI equation should not be used for patients with unstable renal function and has not been validated in children and those over 70. Current interpretive data was last reviewed 2021. Blood 05/15/2025 10:1 2 PM CDT 05/15/2025 11:57 PM CDT Cosmo Gallagher INTELLIGENCE DIRECTOR LAB BLOOD ORDERABLES Janett lindsay Result Performing Organization Address [facility] Co de Phone Number [facility] Department [place] [address] * (ABNORMAL) CBC without differential (05/15/2025 10:12 PM CDT) WBC 4.67 3.80 - 9.90 K/cumm Hgb 9.0(L) 11.9 - 15.5 g/dL [facility] Hct 28.6(L) 35.6 - 45.5 % [facility] Plt 256 150 - 400 K/cumm [facility] MPV 9.5 9.1 - 12.3 fL [facility] RBC 3.35(L) 3.90 - 5.20 M/cumm [facility] MCV 85.4 81.3 - 96.4 fL [facility] MCH 26.9(L) 27.1 - 33.3 pg [facility] MCHC 31.5(L) 32.3 - 35.7 g/dL [facility] RDW CV 15.8(H) 11.1 - 14.9 % [facility] RDW SD 48.7(H) 35.7 - 48.1 fL [facility] NRBC abs 0.00 0.00 - 0.01 K/cumm [facility] Blood 05/15/2025 10:1 2 PM CDT 05/15/2025 11:58 PM CDT Cosmo Gallagher NP LAB BLOOD ORDERABLES Janett l Result Performing Organization Address [facility]/ZIP Co de Phone Number [facility] Department [place] [address] * (ABNORMAL) Basic metabolic panel (05/15/2025 10:12 PM CDT) Pathologist [facility] Sodium 143 135 - 145 mmol/L Potassium, pl 3.8 3.3 - 4.9 mmol/L [facility] Chloride 105 97 - 110 mmol/L [facility] CO2 28 22 - 32 mmol/L [facility] Anion gap 10 2 - 15 mmol/L [facility] BUN 17 6 - 25 mg/dL [facility] Creatinine 1.19(H) 0.60 - 1.10 mg/dL [facility] Glucose 130 70 - 199 mg/dL [facility] Comment: Interpretive Data Fasting glucose >/= 126 mg/dl is diagnostic for diabetes. Fasting is defined as no caloric intake for at least 8 hours. Fasting glucose between 100 mg/dl to 125 mg/dl is diagnostic of prediabetes. In a patient with classic symptoms of hyperglycemia or hyperglycemic crisis, a random glucose >/= 200 mg/dl is diagnostic for diabetes. In the absence of unequivocal hyperglycemia, results should be confirmed by repeat testing. The classification and Diagnosis of Diabetes Diabetes Care 2021; 46: S19-S40. Current interpretive data was last revised 2022. Calcium 9.9 8.5 - 10.3 mg/dL [facility] Blood 05/15/2025 10:1 2 PM CDT 05/15/2025 11:57 PM CDT us Cosmo Gallagher INTELLIGENCE DIRECTOR LAB BLOOD ORDERABLES Janett l Result [facility] Department [place] [address] * Vancomycin level trough Please draw 30 minutes before the 3rd dose (this morning) (05/15/2025 9:17 AM CDT) Vancomycin trough 13.8 10.0 - 20.0 mcg/mL Blood 05/15/2025 9:17 AM CDT 05/15/2025 9:34 AM CDT Narrative [facility] - 05/15/2025 10:07 AM CDT Please draw 30 minutes before the 3rd dose (this morning) us Janae Thorpe INTELLIGENCE DIRECTOR LAB BLOOD ORDERABLES Final Result Performing Organization Address [facility] de Phone Number [facility] Department [place] [address] * (ABNORMAL) eGFR (05/14/2025 10:12 PM CDT) Pathologist [facility] eGFR 48(L) >=60 mL/min/1. 73 m2 Comment: Interpretive Data Reference Interval Normal >/= 90 mL/min/1.73m2 Mildly decreased* 60 - 89 mL/min/1.73m2 Mildly to moderately decreased 45 - 59 mL/min/1.73m2 Moderately to severely decreased 30 - 44 mL/min/1.73m2 Severely decreased 15 - 29 mL/min/1.73m2 Kidney Failure < 15 mL/min/1.73m2 *Relative to young adult level Estimated glomerular filtration rate is determined by the 2020 CKD-EPI equation recommended by the National Kidney Foundation (A Unifying Approach to GFR Estimation: Recommendations of the NKF-ASK Task Force on Reassessing the Inclusion of Race in Diagnosing Kidney Disease, JASN 2020). The CKD-EPI equation should not be used for patients with unstable renal function and has not been validated in children and those over 70. Current interpretive data was last reviewed 2021. Blood 05/14/2025 10:1 2 PM CDT 05/14/2025 11:04 PM CDT Cosmo Gallagher NP LAB BLOOD ORDERABLES Janett l Result Performing Organization Address [facility] Co de Phone Number [facility] Department [place] [address] * (ABNORMAL) CBC without differential (05/14/2025 10:12 PM CDT) [facility] WBC 5.35 3.80 - 9.90 K/cumm Hgb 9.0(L) 11.9 - 15.5 g/dL [facility] Hct 28.8(L) 35.6 - 45.5 % [facility] Plt 257 150 - 400 K/cumm [facility] MPV 9.7 9.1 - 12.3 fL [facility] RBC 3.41(L) 3.90 - 5.20 M/cumm [facility] MCV 84.5 81.3 - 96.4 fL [facility] MCH 26.4(L) 27.1 - 33.3 pg [facility] MCHC 31.3(L) 32.3 - 35.7 g/dL [facility] RDW CV 15.6(H) 11.1 - 14.9 % [facility] RDW SD 46.9 35.7 - 48.1 fL [facility] NRBC abs 0.00 0.00 - 0.01 K/cumm [facility] Blood 05/14/2025 10:1 2 PM CDT 05/14/2025 11:04 PM CDT Cosmo Gallagher INTELLIGENCE DIRECTOR LAB BLOOD ORDERABLES Janett l Result Performing Organization Address City/State/[facility] Co de Phone Number [facility] Department [place] [address] * (ABNORMAL) Basic metabolic panel (05/14/2025 10:12 PM CDT) [facility] Sodium 143 135 - 145 mmol/L Potassium, pl 4.0 3.3 - 4.9 mmol/L [facility] Chloride 107 97 - 110 mmol/L [facility] CO2 28 22 - 32 mmol/L [facility] Anion gap 8 2 - 15 mmol/L [facility] BUN 15 6 - 25 mg/dL [facility] Creatinine 1.22(H) 0.60 - 1.10 mg/dL [facility] Glucose 99 70 - 199 mg/dL [facility] Comment: Interpretive Data Fasting glucose >/= 126 mg/dl is diagnostic for diabetes. Fasting is defined as no caloric intake for at least 8 hours. Fasting glucose between 100 mg/dl to 125 mg/dl is diagnostic of prediabetes. In a patient with classic symptoms of hyperglycemia or hyperglycemic crisis, a random glucose >/= 200 mg/dl is diagnostic for diabetes. In the absence of unequivocal hyperglycemia, results should be confirmed by repeat testing. The classification and Diagnosis of Diabetes Diabetes Care 202; 46: S19-S40. Current interpretive data was last revised 2022. Calcium 8.9 8.5 - 10.3 mg/dL [facility] Blood 05/14/2025 10:1 2 PM CDT 05/14/2025 11:04 PM CDT us Cosmo Gallagher NP LAB BLOOD ORDERABLES Janett l Result Performing Organization Address City/[facility]/ZIP Co de Phone Number [facility] [place] [employer] [place] [address] * (ABNORMAL) Hemoglobin and hematocrit (05/14/2025 1:31 PM CDT) Hgb 10.1(L) 11.9 - 15.5 g/dL Comment:Hemoglobin delta due to apparent blood transfusion. Hct 32.3(L) 35.6 - 45.5 % [facility] Blood 05/14/2025 1:31 PM CDT 05/14/2025 1:43 PM CDT Narrative [facility] - 05/14/2025 1:58 PM CDT 1 hour after the red blood cell transfusion is complete. us Kalpesh Rahman MD LAB BLOOD ORDERABLES Edited Resu lt - Final Performing Organization Address [facility] Co de Phone Number [facility] [place] [place] [address] * Transfuse RBC (05/14/2025 11:53 AM CDT) Blood us Krys Rabago NP BLOOD TRANSFUSION ORDERAB LES Final Result Performing Organization Address [facility]/ZIP Co de Phone Number [facility] [place] [place] [address] * Potassium (05/14/2025 9:48 AM CDT) Potassium, pl 4.3 3.3 - 4.9 mmol/L Blood 05/14/2025 9:48 AM CDT 05/14/2025 9:59 AM CDT Narrative [facility] - 05/14/2025 10:23 AM CDT Provider to discontinue after two normal results. Kalpesh Rahman MD LAB BLOOD ORDERABLES Final Resul t Performing Organization Address [facility] de Phone Number [facility] [place] [place] [address] * Transfuse RBC (05/14/2025 8:51 AM CDT) Blood Kalpesh Rahman MD BLOOD TRANSFUSION ORDERABLES Fin al Result Performing Organization Address [facility] Phone Number [facility] [place] [place] [address] * Potassium (05/14/2025 5:10 AM CDT) Potassium, pl 4.5 3.3 - 4.9 mmol/L Blood 05/14/2025 5:10 AM CDT 05/14/2025 6:37 AM CDT Narrative [facility] - 05/14/2025 6:59 AM CDT Provider to discontinue after two normal results. Kalpesh Rahman MD LAB BLOOD ORDERABLES Final Resul t Performing Organization Address [facility] de Phone Number [facility] [employer] [place] [address] * Prepare RBC: 1 Units (05/14/2025 4:32 AM CDT) Product code [id number] Unit Number [id number] [facility] Product Blood Type APOS [facility] Dispense Status PRESUMED TRANSFUSED [facility] Blood 05/14/2025 4:32 AM CDT 05/14/2025 4:33 AM CDT Narrative [facility] - 05/15/2025 12:57 AM CDT Are special requirements needed? (All products are leukoreduced and CMV- safe)- >No Date required:-[id number] LRRBC # of [id number] Reasons:-Active bleeding, Hgb <8 g/dL} Kalpesh Rahman MD BLOOD BANK PRODUCT ORDERABLES Fi nal Result Performing Organization Address [facility] de Phone Number [facility] Department [place] [employer] [place] [address] * (ABNORMAL) eGFR (05/13/2025 9:20 PM CDT) Pathologist [facility] eGFR 58(L) >=60 mL/min/1. 73 m2 Comment: Interpretive Data Reference Interval Normal >/= 90 mL/min/1.73m2 Mildly decreased* 60 - 89 mL/min/1.73m2 Mildly to moderately decreased 45 - 59 mL/min/1.73m2 Moderately to severely decreased 30 - 44 mL/min/1.73m2 Severely decreased 15 - 29 mL/min/1.73m2 Kidney Failure < 15 mL/min/1.73m2 *Relative to young adult level Estimated glomerular filtration rate is determined by the 2020 CKD-EPI equation recommended by the National Kidney Foundation (A Unifying Approach to GFR Estimation: Recommendations of the NKF-ASK Task Force on Reassessing the Inclusion of Race in Diagnosing Kidney Disease, JASN 2020). The CKD-EPI equation should not be used for patients with unstable renal function and has not been validated in children and those over 70. Current interpretive data was last reviewed 2021. Blood 05/13/2025 9:20 PM CDT 05/13/2025 10:12 PM CDT Cosmo Gallagher INTELLIGENCE DIRECTOR LAB BLOOD ORDERABLES Janett l Result Performing Organization Address [facility] Co de Phone Number [facility] Department [place] [address] * (ABNORMAL) Erythrocyte sedimentation rate (05/13/2025 9:20 PM CDT) [facility] Erythrocyte sedimentation rate 59(H) 1 - 30 mm/hr Blood 05/13/2025 9:20 PM CDT 05/13/2025 10:10 PM CDT Cosmo Gallagher NP LAB BLOOD ORDERABLES Janett l Result Performing Organization Address [facility] Co de Phone Number [facility] Department [place] [address] * (ABNORMAL) CBC without differential (05/13/2025 9:20 PM CDT) [facility] WBC 4.88 3.80 - 9.90 K/cumm Hgb 7.1(L) 11.9 - 15.5 g/dL [facility] Hct 23.5(L) 35.6 - 45.5 % [facility] Plt 225 150 - 400 K/cumm [facility] MPV 9.5 9.1 - 12.3 fL [facility] RBC 2.74(L) 3.90 - 5.20 M/cumm [facility] MCV 85.8 81.3 - 96.4 fL [facility] MCH 25.9(L) 27.1 - 33.3 pg [facility] MCHC 30.2(L) 32.3 - 35.7 g/dL [facility] RDW CV 16.1(H) 11.1 - 14.9 % [facility] RDW SD 49.3(H) 35.7 - 48.1 fL [facility] NRBC abs 0.00 0.00 - 0.01 K/cumm [facility] Blood 05/13/2025 9:20 PM CDT 05/13/2025 10:10 PM CDT Cosmo Gallagher NP LAB BLOOD ORDERABLES Janett l Result Performing Organization Address [facility]/ZIP Co de Phone Number [facility] Department [place] [address] * (ABNORMAL) CRP (acute phase) (05/13/2025 9:20 PM CDT) Pathologist [facility] CRP 16.8(H) <=10.0 mg/L Blood 05/13/2025 9:20 PM CDT 05/13/2025 10:12 PM CDT Cosmo Gallagher INTELLIGENCE DIRECTOR LAB BLOOD ORDERABLES Janett l Result [facility] Department [place] [address] * (ABNORMAL) Basic metabolic panel (05/13/2025 9:20 PM CDT) [facility] Sodium 142 135 - 145 mmol/L Potassium, pl 5.4(H) 3.3 - 4.9 mmol/L [facility] Chloride 107 97 - 110 mmol/L [facility] CO2 29 22 - 32 mmol/L [facility] Anion gap 6 2 - 15 mmol/L [facility] BUN 13 6 - 25 mg/dL [facility] Creatinine 1.03 0.60 - 1.10 mg/dL [facility] Glucose 115 70 - 199 mg/dL [facility] Comment: Interpretive Data Fasting glucose >/= 126 mg/dl is diagnostic for diabetes. Fasting is defined as no caloric intake for at least 8 hours. Fasting glucose between 100 mg/dl to 125 mg/dl is diagnostic of prediabetes. In a patient with classic symptoms of hyperglycemia or hyperglycemic crisis, a random glucose >/= 200 mg/dl is diagnostic for diabetes. In the absence of unequivocal hyperglycemia, results should be confirmed by repeat testing. The classification and Diagnosis of Diabetes Diabetes Care 2021; 46: S19-S40. Current interpretive data was last revised 2022. Calcium 8.9 8.5 - 10.3 mg/dL [facility] Blood 05/13/2025 9:20 PM CDT 05/13/2025 10:12 PM CDT us Cosmo Calixtodannielle Gallagher INTELLIGENCE DIRECTOR LAB BLOOD ORDERABLES Janett lindsay Result [facility] Department [place] [address] * XR Knee Left 1 or 2 View (05/13/2025 3:11 PM CDT) Anatomical Region Laterality Modality Lower Extremities, Knee Left Computed Radiography 05/13/2025 4:08 PM CDT Impressions 05/13/2025 4:44 PM CDT 1. Interval irrigation and debridement of the left knee with placement of antibiotic beads. 2. 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 Dictated by: Bacilio Sutherland M.D. The radiology attending physician has personally reviewed this study, and had reviewed and/or edited this written report and agrees with it. Electronically signed by: Tommy Keller M.D. Narrative 05/13/2025 4:44 PM CDT EXAMINATION: XR KNEE LEFT 1 OR 2 VIEWS HISTORY: Status post revision arthroplasty and irrigation/debridement FINDINGS: 2 radiographs of the left knee are submitted with comparison to 03/31/2025. Semi-constrained left knee revision arthroplasty is noted. There is interval irrigation and debridement of the left knee with antibiotic beads. Surgical elan overlie the knee. Surgical drain is in place. There is extensive soft tissue edema and subcutaneous gas. There is expected alignment of the left knee. No acute fractures. Procedure Note Tommy Keller MD - 05/13/2025 EXAMINATION: XR KNEE LEFT 1 OR 2 VIEWS HISTORY: Status post revision arthroplasty and irrigation/debridement FINDINGS: 2 radiographs of the left knee are submitted with comparison to 03/31/2025. Semi-constrained left knee revision arthroplasty is noted. There is interval irrigation and debridement of the left knee with antibiotic beads. Surgical elan overlie the knee. Surgical drain is in place. There is extensive soft tissue edema and subcutaneous gas. There is expected alignment of the left knee. No acute fractures. IMPRESSION: 1. Interval irrigation and debridement of the left knee with placement of antibiotic beads. 2. 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 Dictated by: Bacilio Sutherland M.D. The radiology attending physician has personally reviewed this study, and had reviewed and/or edited this written report and agrees with it. Electronically signed by: Tommy Keller M.D. Sukhjinder Gonzalez MD IMG XR PROCEDURES Fi nal Result * (ABNORMAL) Tissue aerobic and anaerobic culture and gram stain Tissue Knee, left (05/13/2025 11:40 AM CDT) Direct Specimen Exam Stain: No polymorphonuclear leukocytes seen. No organisms seen. Report Final Report: Rare Staphylococcus epidermidis (.) [facility] Organism STAPHYLOCOCCUS EPIDERMIDIS [facility] Tissue (Knee, left) 05/13/2025 11:40 AM CDT 05/13/2025 2:46 PM CDT [facility] - 05/21/2025 11:56 AM CDT Left knee #5 Testing performed by [facility] ([phone]) Specimens submitted from normally sterile body sites will have all bacterial morphotypes identified. Specimens that contain grossly mixed charly and/or are from body sites that are not normally sterile will be examined for Staphylococcus aureus, Pseudomonas aeruginosa, beta-hemolytic strep, vancomycin-resistant Enterococcus, Bacteroides, Parabacteroides, Clostridium perfringens and fungus. If any of these are isolated, the organism will be reported. Current interpretive data was last revised on 2020. Organism Antibiotic Method Susceptibility Staphylococcus epidermidis Daptomycin (KANE) (KANE) INTERPRETATION Not Susceptible Staphylococcus epidermidis Doxycycline (KANE) INTERPRETATION Susceptible Staphylococcus epidermidis Linezolid (KANE) INTERPRETATION Susceptible Staphylococcus epidermidis Trimethoprim with Sulfamethoxazole (KANE) INTERPRETATION Susceptible Staphylococcus epidermidis Clindamycin (KANE) INTERPRETATION Susceptible Staphylococcus epidermidis Erythromycin (KANE) INTERPRETATION Susceptible Staphylococcus epidermidis Vancomycin (KANE) INTERPRETATION Susceptible Staphylococcus epidermidis Oxacillin (KANE) INTERPRETATION Susceptible Staphylococcus epidermidis Cefazolin (KANE) INTERPRETATION Susceptible Staphylococcus epidermidis Ceftriaxone (KANE) INTERPRETATION Susceptible Kalpesh Rahman MD LAB MICROBIOLOGY - GENERAL ORDER SONAL Final Result [facility] Department [place] [address] * Microorganism detection by PCR/Sequencing Tissue Knee, left (05/13/2025 11:38 AM CDT) Report Final Report: For additional result information, see attached scanned report. Tissue (Knee, left) 05/13/2025 11:38 AM CDT 05/15/2025 4:45 PM CDT Narrative [facility] - 05/20/2025 2:37 PM CDT Test Requested: Broad Range Bacterial PCR and Sequencing to [place] Acc # [id number] Left knee #4 per [facility] Yury Kalpesh Rahman MD LAB MICROBIOLOGY - GENERAL ORDER SONAL Final Result Performing Organization Address City/[facility]/ZIP Co de Phone Number [facility] Department [place] [address] * Tissue aerobic and anaerobic culture and gram stain Tissue Knee, left (05/13/2025 11:38 AM CDT) Direct Specimen Exam Stain: Rare polymorphonuclear leukocytes seen. No organisms seen. Report Final Report: No growth [facility] Tissue (Knee, left) 05/13/2025 11:38 AM CDT 05/13/2025 2:52 PM CDT Narrative [facility] - 05/18/2025 10:33 AM CDT Left knee #4 Testing performed by [facility]biology Laboratory ([phone]) Specimens submitted from normally sterile body sites will have all bacterial morphotypes identified. Specimens that contain grossly mixed charly and/or are from body sites that are not normally sterile will be examined for Staphylococcus aureus, Pseudomonas aeruginosa, beta-hemolytic strep, vancomycin-resistant Enterococcus, Bacteroides, Parabacteroides, Clostridium perfringens and fungus. If any of these are isolated, the organism will be reported. Current interpretive data was last revised on 2020. us Kalpesh Rahman MD LAB MICROBIOLOGY - GENERAL ORDER SONAL Final Result [facility] Department [place] [address] * Tissue aerobic and anaerobic culture and gram stain Tissue Knee, left (05/13/2025 11:32 AM CDT) Direct Specimen Exam Stain: No polymorphonuclear leukocytes seen. No organisms seen. Report Final Report: No growth [facility] Tissue (Knee, left) 05/13/2025 11:32 AM CDT 05/13/2025 2:51 PM CDT Narrative [facility] - 05/18/2025 10:33 AM CDT Left knee #3 Testing performed by [facility] Laboratory ([phone]) Specimens submitted from normally sterile body sites will have all bacterial morphotypes identified. Specimens that contain grossly mixed charly and/or are from body sites that are not normally sterile will be examined for Staphylococcus aureus, Pseudomonas aeruginosa, beta-hemolytic strep, vancomycin-resistant Enterococcus, Bacteroides, Parabacteroides, Clostridium perfringens and fungus. If any of these are isolated, the organism will be reported. Current interpretive data was last revised on 2020. Kalpesh Rahman MD LAB MICROBIOLOGY - GENERAL ORDER SONAL Final Result [facility] Department [place] [address] * Tissue aerobic and anaerobic culture and gram stain Tissue Knee, left (05/13/2025 11:31 AM CDT) Direct Specimen Exam Stain: No polymorphonuclear leukocytes seen. No organisms seen. Report Final Report: No growth [facility] Tissue (Knee, left) 05/13/2025 11:31 AM CDT 05/13/2025 2:53 PM CDT Narrative [facility] - 05/18/2025 10:33 AM CDT Left knee #2 Testing performed by [facility] Laboratory ([phone]) Specimens submitted from normally sterile body sites will have all bacterial morphotypes identified. Specimens that contain grossly mixed charly and/or are from body sites that are not normally sterile will be examined for Staphylococcus aureus, Pseudomonas aeruginosa, beta-hemolytic strep, vancomycin-resistant Enterococcus, Bacteroides, Parabacteroides, Clostridium perfringens and fungus. If any of these are isolated, the organism will be reported. Current interpretive data was last revised on 2020. Kalpesh Rahman MD LAB MICROBIOLOGY - GENERAL ORDER SONAL Final Result Performing Organization Address City/[facility] Co de Phone Number [facility] [place] [address] * Tissue aerobic and anaerobic culture and gram stain Tissue Knee, left (05/13/2025 11:30 AM CDT) Direct Specimen Exam Stain: No polymorphonuclear leukocytes seen. No organisms seen. Report Final Report: No growth [facility] Tissue (Knee, left) 05/13/2025 11:30 AM CDT 05/13/2025 2:45 PM CDT Narrative [facility] - 05/18/2025 10:36 AM CDT Left knee #1 Testing performed by [facility] Laboratory ([phone]) Specimens submitted from normally sterile body sites will have all bacterial morphotypes identified. Specimens that contain grossly mixed charly and/or are from body sites that are not normally sterile will be examined for Staphylococcus aureus, Pseudomonas aeruginosa, beta-hemolytic strep, vancomycin-resistant Enterococcus, Bacteroides, Parabacteroides, Clostridium perfringens and fungus. If any of these are isolated, the organism will be reported. Current interpretive data was last revised on 2020. Kalpesh Rahman MD LAB MICROBIOLOGY - GENERAL ORDER SONAL Final Result Performing Organization Address [facility] Co de Phone Number [facility] Department [place] [employer] [place] [address] * Airway (05/13/2025 10:46 AM CDT) Narrative Jaki Colon MD - 05/13/2025 10:46 AM CDT Jaki Colon MD 05/13/2025 10:48 AM Airway Patient location: OR Urgency: elective Indications for airway management: anesthesia Difficult airway: no Staff: Supervising provider: Albino Caal MD Placed by: Resident: Jaki Colon MD Emergent airway documentation: Risks and benefits discussed: yes Consent obtained: yes Consent given by: patient Airway prep: Preoxygenated: yes Patient position: sniffing Mask difficulty assessment: 1 - vent by mask Spontaneous ventilation during airway: absent Sedation level during airway: GA Final airway details: Final airway type: endotracheal airway Tube type: ETT ETT size: 7.0 mm Cuffed: yes Technique used for successful ETT placement: video laryngoscopy Devices/Methods used in placement: stylet Insertion site: oral Blade type: Sharath Video blade type: Trujillo Blade size: 3 Cormack-Lehane (video): grade I - full view of glottis Initial cuff pressure: 25 cm H2O Cuff inflated with: air ETT to lips: 21 cm Placement verified by: auscultation and CO2 detection Airway secured with: silk tape Number of attempts: 2 (glottis closed on first look) Ventilation between attempts: BVM Planned trial extubation: yes us Jaki Briscoe MD ANESTHESIA ORDERABL ES Final Result * Type and screen (05/13/2025 9:54 AM CDT) ABO Rh A Positive Mirna, indirect Negative [facility] Blood 05/13/2025 9:54 AM CDT 05/13/2025 10:07 AM CDT Narrative [facility] - 05/13/2025 10:58 AM CDT Has the patient had Daratumumab or Isatuximab in the past 6 months?->Unknown us Alee Mariee INTELLIGENCE DIRECTOR LAB BLOOD BANK TEST ORD ERABLES Final Result [facility] Department [place] [address] * Prepare RBC: 1 Units (05/13/2025 9:40 AM CDT) [facility] Product code [id number] Unit Number [id number] [facility] Product Blood Type APOS [facility] Dispense Status PRESUMED TRANSFUSED [facility] Blood 05/13/2025 9:40 AM CDT 05/13/2025 9:39 AM CDT Narrative [facility] - 05/14/2025 8:00 PM CDT Are special requirements needed? (All products are leukoreduced and CMV- safe)- >No Date required:-[id number] LRRBC # of [id number] Reasons:-Intra-op transfusion} Alee Mariee INTELLIGENCE DIRECTOR BLOOD BANK PRODUCT ORDE RABLES Final Result Performing Organization Address [facility] de Phone Number [facility] Department [place] [employer] [place] [address] * TYPE AND SCREEN 14 DAY (04/28/2025 10:46 AM CDT) [facility] Mirna, indirect Negative ABO Rh A Positive [facility] Blood 04/28/2025 10:4 6 AM CDT 04/28/2025 1:02 PM CDT Narrative [facility] - 04/28/2025 1:55 PM CDT Has the patient had Daratumumab or Isatuximab in the past 6 months?->Unknown Is this test being ordered in advance for a procedure?->Yes Expected date of procedure:->05/13/25 Has the patient been transfused in the past 3 months?->No Has the patient been in the past 3 months?->No Alee Mariee NP LAB BLOOD BANK TEST ORD ERABLES Final Result Performing Organization Address [facility] Co de Phone Number [facility] [place] [employer] [place] [address] * (ABNORMAL) eGFR (04/28/2025 10:46 AM CDT) [facility] eGFR 53(L) >=60 mL/min/1. 73 m2 Comment: Interpretive Data Reference Interval Normal >/= 90 mL/min/1.73m2 Mildly decreased* 60 - 89 mL/min/1.73m2 Mildly to moderately decreased 45 - 59 mL/min/1.73m2 Moderately to severely decreased 30 - 44 mL/min/1.73m2 Severely decreased 15 - 29 mL/min/1.73m2 Kidney Failure < 15 mL/min/1.73m2 *Relative to young adult level Estimated glomerular filtration rate is determined by the 2020 CKD-EPI equation recommended by the National Kidney Foundation (A Unifying Approach to GFR Estimation: Recommendations of the NKF-ASK Task Force on Reassessing the Inclusion of Race in Diagnosing Kidney Disease, JASN 2020). The CKD-EPI equation should not be used for patients with unstable renal function and has not been validated in children and those over 70. Current interpretive data was last reviewed 2021. Blood 04/28/2025 10:4 6 AM CDT 04/28/2025 12:37 PM CDT us Kalpesh Rahman MD LAB BLOOD ORDERABLES Final Resul t [facility] Department [place] [address] * (ABNORMAL) Differential, auto (04/28/2025 10:46 AM CDT) [facility] Neutrophil abs 8.95(H) 1.50 - 6.50 K/cumm Imm gran abs 0.06 0.00 - 0.10 K/cumm [facility] Lymphocyte abs 0.74(L) 0.80 - 3.30 K/cumm [facility] Monocyte abs 0.41 0.20 - 0.80 K/cumm [facility] Eosinophil abs 0.06 0.00 - 0.50 K/cumm [facility] Basophil abs 0.03 0.00 - 0.10 K/cumm [facility] Neutrophil pct 87.3 % [facility] Comment: Interpretive Data Percent cell count reference ranges are not reported, since discordance with absolute values may lead to misinterpretation of CBC data. Current Interpretive Data was last revised on 2018. Imm gran pct 0.6 % [facility] Comment: Interpretive Data Percent cell count reference ranges are not reported, since discordance with absolute values may lead to misinterpretation of CBC data. Current Interpretive Data was last revised on 2018. Lymphocyte pct 7.2 % [facility] Comment: Interpretive Data Percent cell count reference ranges are not reported, since discordance with absolute values may lead to misinterpretation of CBC data. Current Interpretive Data was last revised on 2018. Monocyte pct 4.0 % [facility] Comment: Interpretive Data Percent cell count reference ranges are not reported, since discordance with absolute values may lead to misinterpretation of CBC data. Current Interpretive Data was last revised on 2018. Eosinophil pct 0.6 % [facility] Comment: Interpretive Data Percent cell count reference ranges are not reported, since discordance with absolute values may lead to misinterpretation of CBC data. Current Interpretive Data was last revised on 2018. Basophil pct 0.3 % [facility] Comment: Interpretive Data Percent cell count reference ranges are not reported, since discordance with absolute values may lead to misinterpretation of CBC data. Current Interpretive Data was last revised on 2018. Blood 04/28/2025 10:4 6 AM CDT 04/28/2025 12:37 PM CDT us Kalepsh Rahman MD LAB BLOOD ORDERABLES Final Resul t [facility] Department [place] [address] * (ABNORMAL) CPAP aPTT algorithm (04/28/2025 10:46 AM CDT) aPTT 27(L) 28 - 38 sec Comment: Interpretive Data Heparin therapeutic range: 66.0 - 100.0 seconds. Range based on correlation with therapeutic heparin activity range of 0.3 - 0.7 Units/mL. Current interpretive data was last revised on 2023. Blood 04/28/2025 10:4 6 AM CDT 04/28/2025 12:32 PM CDT us Alee Mariee INTELLIGENCE DIRECTOR LAB BLOOD ORDERABLES Fi nal Result Performing Organization Address [facility] Co de Phone Number [facility] Department [place] [address] * (ABNORMAL) CBC with auto differential (04/28/2025 10:46 AM CDT) Pathologist [facility] WBC 10.25(H) 3.80 - 9.90 K/cumm Hgb 10.3(L) 11.9 - 15.5 g/dL [facility] Hct 33.6(L) 35.6 - 45.5 % [facility] Plt 432(H) 150 - 400 K/cumm [facility] MPV 9.2 9.1 - 12.3 fL [facility] RBC 3.99 3.90 - 5.20 M/cumm [facility] MCV 84.2 81.3 - 96.4 fL [facility] MCH 25.8(L) 27.1 - 33.3 pg [facility] MCHC 30.7(L) 32.3 - 35.7 g/dL [facility] RDW CV 15.2(H) 11.1 - 14.9 % [facility] RDW SD 46.4 35.7 - 48.1 fL [facility] NRBC abs 0.00 0.00 - 0.01 K/cumm [facility] Blood 04/28/2025 10:4 6 AM CDT 04/28/2025 12:37 PM CDT us Kalpesh Rahman MD LAB BLOOD ORDERABLES Final Resul t Performing Organization Address City/[facility]/ZIP Co de Phone Number [facility] Department [place] [address] * Vitamin D 25 hydroxy (04/28/2025 10:46 AM CDT) Vitamin D 25-OH 58 30 - 80 ng/mL Blood 04/28/2025 10:4 6 AM CDT 04/28/2025 12:37 PM CDT Kalpesh Rahman MD LAB BLOOD ORDERABLES Final Resul t Performing Organization Address [facility] de Phone Number [facility] Department [place] [address] * Protime-INR (04/28/2025 10:46 AM CDT) Pathologist [facility] PT 10.6 9.7 - 13.0 sec INR 0.98 0.90 - 1.20 [facility] Comment: Interpretive data Oral anticoagulant therapeutic ranges: Venous thromboembolism prophylaxis or treatment: 2.0-3.0 CARDIOLOGY Standard range: 2.0-3.0 High-intensity range: 2.5-3.5 Refer to indication-specific guidelines for appropriate target ranges for prosthetic heart valve replacement. Current interpretive data was last revised on 2019. Blood 04/28/2025 10:4 6 AM CDT 04/28/2025 12:32 PM CDT Alee Mariee INTELLIGENCE DIRECTOR LAB BLOOD ORDERABLES Fi nal Result Performing Organization Address [facility] de Phone Number [facility] Department [place] [address] * (ABNORMAL) Comprehensive metabolic panel (04/28/2025 10:46 AM CDT) Pathologist [facility] Sodium 141 135 - 145 mmol/L Potassium, pl 4.4 3.3 - 4.9 mmol/L [facility] Chloride 98 97 - 110 mmol/L [facility] CO2 33(H) 22 - 32 mmol/L [facility] Anion gap 10 2 - 15 mmol/L [facility] BUN 22 6 - 25 mg/dL [facility] Creatinine 1.11(H) 0.60 - 1.10 mg/dL [facility] Glucose 121 70 - 199 mg/dL [facility] Comment: Interpretive Data Fasting glucose >/= 126 mg/dl is diagnostic for diabetes. Fasting is defined as no caloric intake for at least 8 hours. Fasting glucose between 100 mg/dl to 125 mg/dl is diagnostic of prediabetes. In a patient with classic symptoms of hyperglycemia or hyperglycemic crisis, a random glucose >/= 200 mg/dl is diagnostic for diabetes. In the absence of unequivocal hyperglycemia, results should be confirmed by repeat testing. The classification and Diagnosis of Diabetes Diabetes Care 2021; 46: S19-S40. Current interpretive data was last revised 2022. Calcium 9.9 8.5 - 10.3 mg/dL [facility] Bilirubin, total 0.2 0.1 - 1.2 mg/dL [facility] Protein, pl 8.0 6.5 - 8.5 g/dL [facility] Albumin 4.3 3.5 - 5.0 g/dL [facility] Alk phos 111 40 - 130 Units/L [facility] ALT 16 7 - 45 Units/L [facility] AST 38 10 - 45 Units/L [facility] Blood 04/28/2025 10:4 6 AM CDT 04/28/2025 12:37 PM CDT us Kalpesh Rahman MD LAB BLOOD ORDERABLES Final Resul t [facility] Department [place] [address] * ECG 12 lead (04/28/2025 9:37 AM CDT) Ventricular Rate EKG/Min 64 BPM [facility] Atrial Rate 64 BPM [facility] [place]-Interval (MSEC) 176 ms [facility] QRS-Interval (MSEC) 88 ms [facility] QT-Interval (MSEC) 422 ms [facility] QTc 435 ms [facility] P [place] 52 degrees [facility] R [place] -30 degrees [facility] T [place] 21 degrees [facility] Diagnosis Normal sinus rhythm Left axis deviation Cannot rule out Anterior infarct , age undetermined Abnormal ECG When compared with ECG of 04-APR-2024 08:37, no significant change Confirmed by OCTAVIO GONZALEZ M.D ([id number]) on 04/28/2025 12:48:08 PM [facility] 04/28/2025 9:37 AM CDT 04/28/2025 12:48 PM CDT us Alee Mariee INTELLIGENCE DIRECTOR ECG ORDERABLES Final R esult [facility] [place] * Synovasure (04/01/2025 7:42 AM CDT) Synovial fluid us Kalpesh Rahman MD LAB BODY FLUIDS AND STOOLS ORDER SONAL Final Result Performing Organization Address City/[facility]/ZIP Co de Phone Number EXTERNAL LAB * XR Knee Left 3 Views (03/31/2025 12:00 PM CDT) Anatomical Region Laterality Modality Lower Extremities, Knee Left Digital Radiography 03/31/2025 5:52 PM CDT Impressions 03/31/2025 5:52 PM CDT Left total knee arthroplasty with stable periprosthetic lucencies along the distal femoral component and medial tibial base plate. This report was created using voice recognition software. Occasional wrong-word or sound-alike substitutions may have occurred due to the inherent limitations of voice recognition software. Read the above report carefully and recognize, using context, where substitutions may have occurred. Electronically signed by: Dori Patton M.D. Narrative 03/31/2025 5:52 PM CDT EXAMINATION: XR KNEE LEFT 3 VIEWS DATE: 03/31/2025 12:00 PM HISTORY: Orthopedic Aftercare. COMPARISON: 07/01/2024 left knee series. FINDINGS: Semiconstrained left total knee arthroplasty unchanged in appearance; periprosthetic lucencies along the medial femoral component and along the medial tibial base plate are unchanged. No new or increased periprosthetic lucency. No acute fractures. No joint effusion. Procedure Note Dori Patton MD - 03/31/2025 EXAMINATION: XR KNEE LEFT 3 VIEWS DATE: 03/31/2025 12:00 PM HISTORY: Orthopedic Aftercare. COMPARISON: 07/01/2024 left knee series. FINDINGS: Semiconstrained left total knee arthroplasty unchanged in appearance; periprosthetic lucencies along the medial femoral component and along the medial tibial base plate are unchanged. No new or increased periprosthetic lucency. No acute fractures. No joint effusion. IMPRESSION: Left total knee arthroplasty with stable periprosthetic lucencies along the distal femoral component and medial tibial base plate. This report was created using voice recognition software. Occasional wrong-word or sound-alike substitutions may have occurred due to the inherent limitations of voice recognition software. Read the above report carefully and recognize, using context, where substitutions may have occurred. Electronically signed by: Dori Patton M.D. Kalpesh Rahman MD IMG XR PROCEDURES Final Result * ECG 12 lead (03/20/2025 12:16 PM CDT) Baljeet De La Rosa MD ECG ORDERABLES Fi nal Result * (ABNORMAL) Erythrocyte sedimentation rate (03/15/2025 12:35 PM CDT) Pathologist [facility] Erythrocyte sedimentation rate 47(H) 1 - 30 mm/hr Comment:Testing performed by : [address] [address] Blood 03/15/2025 12:3 5 PM CDT 03/15/2025 12:39 PM CDT Kalpesh Rahman MD LAB BLOOD ORDERABLES Final Resul t [facility] [address] [facility] Department [place] [address] * CRP (acute phase) (03/15/2025 12:35 PM CDT) Pathologist [facility] CRP 9.7 <=10.0 mg/L Comment:Testing performed by : [address] [address] Blood 03/15/2025 12:3 5 PM CDT 03/15/2025 12:39 PM CDT Kalpesh Rahman MD LAB BLOOD ORDERABLES Final Resul t Performing Organization Address [facility] Co de Phone Number [facility] [address] [facility] Department [place] [address] * Aerobic and anaerobic culture and gram stain Synovial fluid Knee, left (03/10/2025 2:46 PM CDT) Direct Specimen Exam Stain: No polymorphonuclear leukocytes seen. No organisms seen. Comment:Testing performed by : [facility], [address] [place] [address]., [id number] Report Final Report: No growth [facility] Comment:Testing performed by : [facility], [address] [place] [address]., [id number] Synovial fluid (Knee, left) 03/10/2025 2:46 PM CDT 03/10/2025 4:54 PM CDT Kalpesh Rahman MD LAB MICROBIOLOGY - GENERAL ORDER SONAL Final Result Performing Organization Address [facility] de Phone Number [facility] [address] [facility] Department [place] [address] * US Guided Aspiration or Injection of Major Joint (03/10/2025 2:44 PM CDT) Anatomical Region Laterality Modality Entire body N/A X-Ray Angiograph y 03/10/2025 3:59 PM CDT Impressions 03/10/2025 3:59 PM CDT 1. Left knee joint aspiration under ultrasound guidance. 8 mL of serosanguineous synovial fluid were obtained and sent for cell count, Gram stain, and culture and Synovasure. Electronically signed by: Kang Copeland M.D. Narrative 03/10/2025 3:59 PM CDT EXAMINATION: Left knee joint aspiration under ultrasound guidance HISTORY: Painful left knee arthroplasty. Evaluation prior to revision. ATTENDING PRESENCE: Dr. Kang Copeland M.D., the attending radiologist, was present from the beginning to the end of the procedure. Dr. Juli Reardon (executive vice president of sales) was present and participated in the procedure. SEDATION: The patient did not require conscious sedation for the procedure. TECHNIQUE: The risks, benefits and alternatives were discussed and informed consent was obtained. Prior to beginning the procedure, [place] Protocol was performed to confirm the patient's identity and the planned procedure. Sterile barriers used during the procedure included cap, mask, hand hygiene, sterile gloves, and sterile drape. Chloraprep was used for cutaneous antisepsis. The patient was placed supine on the procedure table. The left knee joint was localized with ultrasound guidance. Local anesthesia was achieved with subcutaneous injection of 1% lidocaine 3 mL. An 18-gauge needle was then introduced into the joint under ultrasound guidance. 8 mL of serosanguineous synovial fluid was aspirated from the joint. The needle was removed. The skin was cleansed with hydrogen peroxide, and a bandage was placed. There were no complications of the procedure. ESTIMATED BLOOD LOSS: None CONDITION: Stable condition. DISCHARGED TO: Home FINDINGS: Ultrasound images show a small joint effusion and confirm intra-articular position of the needle tip. Procedure Note Kang Rinaldi MD - 03/10/2025 EXAMINATION: Left knee joint aspiration under ultrasound guidance HISTORY: Painful left knee arthroplasty. Evaluation prior to revision. ATTENDING PRESENCE: Dr. Kang Copeland M.D., the attending radiologist, was present from the beginning to the end of the procedure. Dr. Juli Reardon (executive vice president of sales) was present and participated in the procedure. SEDATION: The patient did not require conscious sedation for the procedure. TECHNIQUE: The risks, benefits and alternatives were discussed and informed consent was obtained. Prior to beginning the procedure, [place] Protocol was performed to confirm the patient's identity and the planned procedure. Sterile barriers used during the procedure included cap, mask, hand hygiene, sterile gloves, and sterile drape. Chloraprep was used for cutaneous antisepsis. The patient was placed supine on the procedure table. The left knee joint was localized with ultrasound guidance. Local anesthesia was achieved with subcutaneous injection of 1% lidocaine 3 mL. An 18-gauge needle was then introduced into the joint under ultrasound guidance. 8 mL of serosanguineous synovial fluid was aspirated from the joint. The needle was removed. The skin was cleansed with hydrogen peroxide, and a bandage was placed. There were no complications of the procedure. ESTIMATED BLOOD LOSS: None CONDITION: Stable condition. DISCHARGED TO: Home FINDINGS: Ultrasound images show a small joint effusion and confirm intra-articular position of the needle tip. IMPRESSION: 1. Left knee joint aspiration under ultrasound guidance. 8 mL of serosanguineous synovial fluid were obtained and sent for cell count, Gram stain, and culture and Synovasure. Electronically signed by: Kang Copeland M.D. us Kalpesh Rahman MD IMG US PROCEDURES Final Result * Cell Differential, Body Fluid (03/10/2025 2:44 PM CDT) Total cells diffed 100 % Comment: Interpretive Data Unless otherwise specified, the reference range and other method performance specifications have not been established for CSF/Body Fluid tests. The test results should be integrated into the clinical context for interpretation. Current interpretive data was last revised on 2019. Neutrophils, fld 93 % [facility] Lymphs, fld 3 % [facility] Monocyte, fld 4 % [facility] Specimen type, fld Synovial [facility] Body site, fld Left knee [facility] Fluid 03/10/2025 2:44 PM CDT 03/10/2025 2:52 PM CDT us Kang Copeland MD LAB BODY FLUIDS AND STOOLS ORDERABLES Final Result [facility] [address] [facility]. Department [place] [address] * Cell count w/rflx diff, body fluid (03/10/2025 2:44 PM CDT) Specimen type, fld Synovial Body site, fld Left knee [facility] Color, fld Red [facility] Clarity, fld Cloudy [facility] Nucleated cells, fld 4,480 /cumm [facility] Comment: Interpretive Data Unless otherwise specified, the reference range and other method performance specifications have not been established for CSF/Body Fluid tests. The test results should be integrated into the clinical context for interpretation. Current interpretive data was last revised on 2019. RBC, fld 120,000 /cumm [facility] Fluid 03/10/2025 2:44 PM CDT 03/10/2025 2:52 PM CDT Kang Copelnad MD LAB BODY FLUIDS AND STOOLS ORDERABLES Final Result Performing Organization Address [facility] Co de Phone Number [facility] [address] [facility] [place] [address] * Mycology (fungal) culture Synovial fluid Knee, left (03/10/2025 2:44 PM CDT) Report Final Report: No fungus isolated Comment:Testing performed by : [facility], [facility], [place]., [address] Synovial fluid (Knee, left) 03/10/2025 2:44 PM CDT 03/10/2025 4:53 PM CDT Narrative [facility] - 04/08/2025 1:00 PM CDT Mycology cultures are held for 4 weeks. us Kang Copeland MD LAB MICROBIOLOGY - GENERAL ORDERABLES Final Result Performing Organization Address City/[facility]/ZIP Co de Phone Number [facility] [address] [facility] [employer] [address] * Diagnostic Mammogram Bilateral W Elio (12/24/2021 11:13 AM SLASHER TENDER) Anatomical Region Laterality Modality Breast Bilateral Mammography 12/24/2021 11:1 9 AM SLASHER TENDER Narrative 12/24/2021 11:20 AM SLASHER TENDER EXAM DESCRIPTION: DIAGNOSTIC MAMMOGRAM BILATERAL W ELIO REASON FOR STUDY: 66-year-old woman comes in today for evaluation of diffuse bilateral breast pain. COMPARISON: Screening mammogram dated 12/20/2008. TECHNIQUE: CC and MLO digital breast tomosynthesis of both breasts with C view was performed. FINDINGS: DENSITY: The breasts are heterogeneously dense, which may obscure small masses. Benign microcalcifications are again noted in both breasts. There is no new suspicious finding in either breast on mammogram. IMPRESSION: No new suspicious findings identified in either breast on mammogram. Specifically, there are no findings to account for patient's diffuse bilateral breast pain. Continued physical examination and annual screening mammography is recommended. Any further management at this time should be based on clinical assessment. BIRADS: 2 - Benign I discussed the findings and recommendations with the patient at the time of the examination. The patient was also given a breast pain informational handout. THIS IS AN ELECTRONICALLY VERIFIED FINAL REPORT 12/24/2021 11:20 AM - Electronically signed by Anthony Ann M.D. RL: DENNYS Report ID: [id number] Reading Location: [facility] Harvey Urrutia MD IMG MAMMO PROCEDURES Final Resu lt from Last 3 Months or Most Recently Relevant to Health Maintenance Additional Health Concerns Active Problems Noted Date Diagnosed Date Initial Follow-Up Appointment 05/19/2025 Barriers to Medication Adherence 05/21/2025 Knowledge deficit related to post op care 2024 Insurance [address] [address] [facility] MEDICARE [facility] [address] [address] MEDICARE BLUE CROSS MEDICARE SUPPLEMENT [address] [address] MEDICARE [facility] [address] [address] MEDICARE BLUE CROSS MEDICARE SUPPLEMENT Advance Directives For more information, please contact: [phone] * Full Code (Latest Code Status on File) Date Activated Date Inactivated Comments 05/28/2025 6:52 PM 05/31/2025 4:05 PM * Full Code Date Activated Date Inactivated Comments 05/13/2025 3:39 PM 05/17/2025 5:17 PM * Full Code Date Activated Date Inactivated Comments 06/21/2022 3:59 PM 06/24/2022 8:33 PM * Full Code Date Activated Date Inactivated Comments 06/08/2021 4:54 AM 06/15/2021 9:59 PM Care Teams Picture Copyist Relationship Specialty Start Date End Date Rodrick Weiss MD [address] [address] PCP - General Family Medicine 11/14/23 North Pittman MD [address] [facility] [address] [place] [address] PCP - Home Infusion Attending Infectious Diseases 05/29/25 Suleiman Lucia, [facility] Pharmacist Pharmacy 05/17/25 Chiquita Kim, RN [address] [facility] [address] [place] [address] SHOP Outpatient Utility Operator 05/19/25
--- OUTSIDE RECORDS SUMMARY | 2025-06-06 13:19 | XMS_ITS | Encounter Summary ---
Author Organization [facility] Healthcare Address [address] [place] [address] Care Team Providers Care Marine Insulator Name Role Phone Rodrick Weiss MD Primary Care Provider [phone] Suleiman Lucia [facility] Unavailable Unavail able Chiquita Kim RN Unavailable North Pittman MD Unavailable [phone] Reason for Visit * Reason Comments Successfully Completed Encounter Details Date Type Department Care Team (Late st Contact Info) Description 06/05/2025 SHOP/CHAP Subsequent Outreach [facility] OP CASE MANAGEMENT [address] [place] [address] Chiquita Kim, RN [address] [facility] [address] [place] [address] Social History Tobacco Use Types Packs/Day Years Used Date Smoking Tobacco: Never Passive Smoke Exposure: Past Smokeless Tobacco: Never Alcohol Use Standard Drinks/Week Comments Not Currently 0 (1 standard drink = 0.6 oz pur e alcohol) [facility] Utilities Answer Date Recorded In the past 12 months has e electric, gas, oil, or water company threatened to shut off services in your [...] 05/29/2025 How often do you attend chur ch or hoahaoism services? Never 05/29/2025 Do you belong to any clubs o r organizations such as rastafari groups, unions, fraternal or athletic groups, or [...] place to sleep or slept in a nursing home (including now)? No 06/10/2021 PHQ-9 Answer Date [...] any time in the past 12 m [facility], were you homeless or living in a nursing home (including now)? No 05/29/2025 Personal Safety Answer Date Recorded Have you ever been in or are you currently in a harmful physical or emotional relationship or is someone making you feel afraid or unsafe? 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 Patient reports feeling fair at this time. Patient states shecalled Dr. Rahman's office to cancel her appointment tomorrow and was offered another appointment for Wednesday 06/13. Advised patient to call if she does not receive appointment confirmation from Dr. Rahman's office by tomorrow. Patient has no further questions or concerns at this time. Reviewed OCMphone number and encouraged patient to call with any needs. documented in this encounter Plan of Treatment Not on file documented as of this encounter Goals Goal Patient Goal Type Associated Problems Recent Progress Patient-Stated? Author Patient will have kept initial appointment and will show signs of improvement to baseline Care Plan Initial Follow-Up Appointment No Chiquita Kim RN Patient will have access to medications needed for healthy outcomes Care Plan Barriers to Medication Adherence No Chiquita Kim RN Patient will recover without complications following surgery Care Plan Knowledge deficit related to post op care No Chiquita Kim RN documented as of this encounter Visit Diagnoses Not on filedocumented in this encounter Additional Health Concerns Active Problems Noted Date Diagnosed Date Initial Follow-Up Appointment 05/19/2025 Barriers to Medication Adherence 05/21/2025 Knowledge deficit related to post op care 2024 documented as of this encounter Care Teams Marine Insulator Relationship Specialty Start Date End Date Rodrick Weiss MD [address] [facility] [address] [place] [address] PCP - General Family Medicine 11/14/23 North Pittman MD [address] [facility] [address] [place] [address] PCP - Home Infusion Attending Infectious Diseases 05/29/25 Suleiman Lucia, [facility] Pharmacist Pharmacy 05/17/25 Chiquita Kim RN [address] [facility] [address] [place] [address] SHOP Outpatient Glass Etcher Helper 05/19/25 documented as of this encounter
--- OUTSIDE RECORDS SUMMARY | 2025-06-06 13:19 | XMS_ITS | Encounter Summary ---
Author Organization [facility] Address [address] [place] [address] Care Team Providers Care Home Organizer Name Role Phone Harvey Urrutia MD Primary Care Provider [phone] Rodrick Weiss MD Primary Care Provider [phone] Encounter Details Date Type Department Care Team (Late st Contact Info) Description 09/29/2020 Prep for Procedure [place] Pre-Admission Testing [address] [place], [place] [id number] Denis Ken MD [address] [place] [id number] Social History Tobacco Use Types Packs/Day Years Used Date Smoking Tobacco: Never Smokeless Tobacco: Never Alcohol Use Standard Drinks/Week Comments Never 0 (1 standard drink = 0.6 oz pur e alcohol) AUDIT-C Answer Date Recorded Q1: How often do you have a drink containing alc ohol? Never 09/07/2020 Average Number of Drinks Not on file 020 Frequency of Binge Drinking Not on file 08/27 Comments No Sex and Gender Information Value Date Recorded Sex Assigned at Female 06/06/2021 8:43 PM CDT Legal Sex Female 4:21 PM CDT Gender Identity Female 06/06/2021 8:43 PM CDT Sexual Orientation Straight 06/06/2021 8: 43 PM CDT COVID-19 Exposure Response Date Recorded In the last month, have you been in contact with someone who was confirmed or suspected to have Coronavirus / COVID-19? No / Unsure 10/01/2020 9:13 AM WEB WEAVER documented as of this encounter Plan of Treatment Upcoming Encounters Date Type Department Care Team (Late st Contact Info) Description 06/11/2025 10:40 AM CDT Office Visit [facility] Medical [facility] Multispecialty Care - [facility] [address] [place] [address] Cele Fernandez, DIE TESTER [address] [place] [address] documented as of this encounter Results * PRE-SURGICAL/PRE-PROCEDURE CORONAVIRUS (COVID 19) (10/12/2020 9:31 AM WEB WEAVER) CORONAVIRUS SARS COV 2 PCR (RESP) NOT DETECTED NOT DETECTED 10/13/2020 11:05 AM WEB WEAVER [facility] Comment: A Not Detected (negative) test result for this test means that SARS- CoV-2 RNA was not present in the specimen above the limit of detection. A negative result does not rule out the possibility of COVID-19 and should not be used as the sole basis for treatment or patient management decisions. If COVID-19 is still suspected, based on exposure history together with other clinical findings, re-testing should be considered in consultation with public health authorities. Laboratory test results should always be considered in the context of clinical observations and epidemiological data in making a final diagnosis and patient management decisions. Please review the Fact Sheets and FDA authorized labeling available for health care providers and patients using the following websites: https://www.[employer].com.com/home/Covid-19/HCP/QuestIVD/fact- sheet.html https://www.[employer]ik.com.[employer]home/Covid-19/Patients/ QuestIVD/fact-sheet.html This test has been authorized by the FDA under an Emergency Use Authorization (EUA) for use by authorized laboratories. Due to the current public health emergency, [facility] is receiving a high volume of samples from a wide variety of swabs and media for COVID-19 testing. In order to serve patients during this public health crisis, samples from appropriate clinical sources are being tested. Negative test results derived from specimens received in non-commercially manufactured viral collection and transport media, or in media and sample collection kits not yet authorized by FDA for COVID-19 testing should be cautiously evaluated and the patient potentially subjected to extra precautions such as additional clinical monitoring, including collection of an additional specimen. Methodology: Nucleic Acid Amplification Test (NAAT) includes RT-PCR or TMA Additional information about COVID-19 can be found at the [facility] website: www.VIAP/Covid19. Test performed at [facility] [address] [place] [address] Director: JE ROSAS DO,MPH FIRST TEST NO 10/12/2020 10:36 AM [facility] EMPLOYED IN HEALTHCARE UNKNOWN 10/12/2020 10:36 AM [facility] SYMPTOMATIC DEFINED BY CDC NO 10/12/2020 10:36 AM [facility] DATE OF SYMPTOM ONSET NO 10/12/2020 10:44 AM [facility] HOSPITALIZATION STATUS NO 10/12/2020 10:36 AM [facility] PATIENT IN ICU NO 10/12/2020 10:36 AM [facility] RESIDENT OF [facility] UNKNOWN 10/12/2020 10:36 AM [facility] NOT 10/12/2020 10:44 AM [facility] PATIENT'S RACE WHITE OR 10/12/2020 10:36 AM [facility] ETHNICITY NONHISPANIC 10/12/2020 10:36 AM [facility] SOURCE (QST) NASOPHARYNGEAL SWAB 10/12/2020 10:36 AM [facility] NASOPHARYNGEAL SWAB / Unknown 10/12/2020 9:31 AM WEB WEAVER us Denis Ken MD MICROBIOLOGY - GENERAL ORDER SONAL Final Result [facility] [address] [place] [address], [facility] [address] [place] [address], documented in this encounter Visit Diagnoses Diagnosis Pre-op exam- Primary Preoperative examination, unspecified documented in this encounter Additional Health Concerns Infection Onset Date Last Indicated Resolved Time COVID-19 Rule Out 10/12/2020 10/12/2020 10/13/2020 11:05 AM WEB WEAVER documented as of this encounter Care Teams Home Organizer Relationship Specialty Start Date End Date Harvey Urrutia MD PCP - General 05/18/16 10/12/23 Rodrick Weiss MD [address] [place] [address] PCP - General FAMILY PRACTICE 10/13/23 documented as of this encounter
--- OUTSIDE RECORDS SUMMARY | 2025-06-06 13:19 | XMS_ITS | Encounter Summary ---
Author Organization [facility] Healthcare Address [address] [place] [address] Care Team Providers Care Heel Sewer Name Role Phone Rodrick Weiss MD Primary Care Provider [phone] Graeme Dunaway MD Unavailable Suleiman Lucia [facility] Unavailable Unavail able Chiquita Kim RN Unavailable [phone] North Pittman MD Unavailable [phone] Encounter Details Date Type Department Care Team (Late st Contact Info) Description 05/26/2025 Home Infusion [facility] Home Infusion Therapy [address] [place] [address] Latha Haley Infection of prosthetic left knee joint Social History Tobacco Use Types Packs/Day Years Used Date Smoking Tobacco: Never Passive Smoke Exposure: Past Smokeless Tobacco: Never Alcohol Use Standard Drinks/Week Comments Not Currently 0 (1 standard drink = 0.6 oz pur e alcohol) [facility] Utilities Answer Date Recorded In the past 12 months has [employer] electric, gas, oil, or water company threatened [...] often do you attend chur ch or denominational services? Never 05/29/2025 Do you belong to any clubs o r organizations such as yazidism groups, unions, fraternal or athletic groups, or [...] place to sleep or slept in a mcfp (including now)? No 06/10/2021 PHQ-9 Answer Date [...] any time in the past 12 m [place], were you homeless or living in a mcfp (including now)? No 05/29/2025 Personal Safety Answer Date Recorded Have you ever been in or are you currently in a harmful physical or emotional relationship or is someone making you feel afraid or unsafe? 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 Remove dose from refrigerator 1-2 hours prior to use 440 mL 05/31/2025 6:10 PM CDT 05/31/2025 5 documented in this encounter Plan of Treatment [...] documented as of this encounter Visit Diagnoses Diagnosis Infection of prosthetic left knee joint documented in this encounter Discontinued Medications Medication Sig Discontinue Reason Start Date End Da te cefTRIAXone 2,000 mg in sterile water 20 mL IV syringeIndications:In fection of prosthetic left knee joint Give 20 ml (2,000 mg) by slow IV push into a venous catheter every 24 hours over 5 minutes. Remove dose from refrigerator 1-2 hours prior to use Reorder 05/17/2025 05/31/2025 documented as of this encounter Additional Health Concerns Active Problems Noted Date Diagnosed Date Initial Follow-Up Appointment 05/19/2025 Barriers to Medication Adherence 05/21/2025 Knowledge deficit related to post op care 2024 documented as of this encounter Care Teams Heel Sewer Relationship Specialty Start Date End Date Rodrick Weiss MD [address] [facility] [address] [place] [address] PCP - General Family Medicine 11/14/23 Graeme Dunaway MD [address] [place] [address] PCP - Home Infusion Attending Infectious Diseases 05/16/25 05/28/25 Norht Pittman MD [address] [facility] [address] [place] [address] PCP - Home Infusion Attending Infectious Diseases 05/29/25 Suleiman Lucia, [facility] Pharmacist Pharmacy 05/17/25 Chiquita Kim, RN [address] [facility] [address] [place] [address] SHOP Outpatient Equipment Records Supervisor 05/19/25 documented as of this encounter
--- OUTSIDE RECORDS SUMMARY | 2025-06-06 13:19 | XMS_ITS ---
Care Plan Created on: June 06, 2025 Julianna Albarran : 1955 Sex: Female Author Organization [facility] at the Medical Office Building Address [address] [place] [address] Care Team Providers Care Roping Tender Name Role Phone Rodrick Weiss MD Primary Care Provider [phone] Suleiman Lucia [facility] Unavailable Unavail able Chiquita Kim RN Unavailable [phone] North Pittman MD Unavailable [phone] Active Problems Problem Noted Date Diagnosed Date [...] She has L TKA (2017), R TKA (2019) and R REYNA (2019). For her left knee PJI, she intially presented to [facility] 06/06/21 with c/o worsening LLE pain, redness, and swelling after twisting her knee several days prior. She was started on IV ceftriaxone for cellulitis. She was seen by Ortho surgery with L knee arthrocentesis showing 05148 WBCs (90% PMNs) and R knee arthrocentesis showing 71259 WBCs (90% PMNs) raising concern for bilateral prosthetic joint infection. Cultures from bilateral knees grew MSSA along with blood cultures. She was then transferred to [facility] for further care. She was discharged on IV oxacillin with plans for 6 weeks of therapy to be followed by termite exterminator oral antibiotic therapy due to retained hardware to bilateral knees. She completed IV antibiotic course on 07/12/21 and was then placed on Keflex for chcf suppression. She has been f/u with our ID clinic for her termite exterminator antibiotic suppression. She had aspiration of [...] by ID to place PICC line for termite exterminator IV antibiotics - ID is formally signing off but will continue to monitor patient peripherally while inpatient. Please see sign off note from 05/16/25 for complete recommendations. 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 04/01/2025 PVC's (premature ventricular contractions) 04/11 Urinary incontinence 11/16/2023 Facet arthropathy, lumbar 09/12/2023 Other intervertebral disc degeneration, lumbar r egion 02/09/2023 Foraminal stenosis of lumbar region 02/09/2023 Spinal stenosis of lumbar re gion with neurogenic claudication 02/09/2023 Radiculopathy, lumbar region 11/16/2022 Overview (06/17/2024): Added automatically from request for surgery [id number] Failed total knee arthroplasty, subsequent encou nter 06/22/2022 Painful total knee replacement, sequela 06/21/20 Painful orthopaedic hardware 06/09/2022 Overview (06/09/2022): Added automatically from request for surgery [id number] Constipation 03/15/2022 Assessment & Plan (03/15/2022 12:09 [...] discuss chronic constipation with him to determine termite exterminator regimen. Healthcare maintenance 03/15/2022 Assessment & Plan [...] concerns Assessment & Plan (01/29/2024 1:15 PM GRAPHICS SOFTWARE ENGINEER): - Reports doing well with stable knee [...] drawn today for routine monitoring while on termite exterminator antibiotics - Discussed with patient the rational for treatment, culture results, risk of recurrent infection, signs/symptoms of recurrent infection, and to contact ID clinic with any questions or concerns Assessment & Plan (01/24/2023 12:39 PM GRAPHICS SOFTWARE ENGINEER): - Bilateral knee surgical incisions remain well [...] drawn today for routine monitoring while on chcf antibiotics - Discussed with patient the rational [...] drawn today for routine monitoring while on termite exterminator antibiotics - Discussed with patient the [...] drawn today for routine monitoring while on termite exterminator antibiotics - Follow up with ortho as [...] on 6 weeks of therapy followed by termite exterminator oral suppression given retained HW. - [...] (06/08/2021): Added automatically from request for surgery [id number] Lower extremity pain, left 06/06/2021 Age-related osteoporosis [...] joints 08/08/20 18 Tricompartment osteoarthritis of knees, bilatera l 06/20/2018 Resolved Problems Problem Noted Date Diagnosed Date Resolved Date Infection and inflammatory r eaction due to internal right knee prosthesis, initial encounter 05/23/2021 03/15/2022 Additional Health Concerns Active Problems Noted Date Diagnosed Date Initial Follow-Up Appointment 05/19/2025 Barriers to Medication Adherence 05/21/2025 Knowledge deficit related to post op care 2024 Goals Goal Patient Goal Type Associated Problems Recent Progress Patient-Stated? Author Patient will have kept initial appointment and will show signs of improvement to baseline Care Plan Initial Follow-Up Appointment Chiquita Crespo RN Patient will have access to medications needed for healthy outcomes Care Plan Barriers to Medication Adherence No Chiqiuta Kim RN Patient will recover without complications following surgery Care Plan Knowledge deficit related to post op care Chiquita Crespo RN Interventions Care Plan Interventions Intervention Entry Date Outcome Assess patient and caregivers ability for safe care after surgery 05/21/2025 Review After Visit Summary and post op restrictions 05/21/2025 Review incision care and signs & symptoms of infection 05/21/2025 Assist patient in developing an action plan for pain management 05/21/2025 Instruct symptoms to report to surgeon 05/21/2025 Educate patient and caregivers about appropriate use of emergency services 05/21/2025 Review with patient signs/symptoms of worsening condition, self-management actions to take, when to call CM or provider 05/21/2025 Ensure a post-hospital medication reconciliation is completed and review with patient-caregiver the medication schedule in detail 05/21/2025 Contact prescriber to request an alternative medication/prescription assistance plan if pt cannot afford medication, is not covered by insurance, or patient did not receive prescription 05/21/2025 Ensure that prescriptions are transferred to pt s home pharmacy as needed 05/21/2025 Transfer prescriptions to pharmacy that delivers to patient s home as needed 05/21/2025 Review when to call their physician for potential medication refills or complications 05/21/2025 Coordinate with [facility] pharmacist to assist with identified concerns or educational needs 05/21/2025 Voucher medication as needed 05/21/2025 Follow up with patient 2 days after Post Hospital Visit office visit to ensure understanding of changes and follow-up plan 05/19/2025 Coordinate with patient/caregiver(s) to ensure patient is able to keep scheduled appointment 05/19/2025 Address any barriers for keeping scheduled appointment 05/19/2025 Discuss with patient/ caregiver plan for transportation to appointment 05/19/2025 Ensure Pt has follow-up scheduled within 7 days of discharge 05/19/2025 Related Goals and Interventions Goal Associated Intervent ions Patient will have kept initi al appointment and will show signs of improvement to baseline Follow up with patient 2 days after Post Hospital Visit office visit to ensure understanding of changes and follow-up plan; Coordinate with patient/caregiver(s) to ensure patient is able to keep scheduled appointment; Address any barriers for keeping scheduled appointment; Discuss with patient/ caregiver plan for transportation to appointment; Ensure Pt has follow-up scheduled within 7 days of discharge Patient will have access to medications needed for healthy outcomes Ensure a post-hospital medication reconciliation is completed and review with patient-caregiver the medication schedule in detail; Contact prescriber to request an alternative medication/prescription assistance plan if pt cannot afford medication, is not covered by insurance, or patient did not receive prescription; Ensure that prescriptions are transferred to pt s home pharmacy as needed; Transfer prescriptions to pharmacy that delivers to patient s home as needed; Review when to call their physician for potential medication refills or complications; Coordinate with [facility] pharmacist to assist with identified concerns or educational needs; Voucher medication as needed Patient will recover without complications following surgery Assess patient and caregivers ability fo r safe care after surgery; Review After Visit Summary and post op restrictions; Review incision care and signs & symptoms of infection; Assist patient in developing an action plan for pain management; Instruct symptoms to report to surgeon; Educate patient and caregivers about appropriate use of emergency services; Review with patient signs/symptoms of worsening condition, self-management actions to take, when to call CM or provider
--- OUTSIDE RECORDS SUMMARY | 2025-06-06 13:20 | XMS_ITS | Encounter Summary ---
Author Organization [facility] Address [address] [place] [address] Phone Care Team Providers Care Apron Operator Name Role Phone Harvey Urrutia MD Primary Care Provider [phone] Rodrick Weiss MD Primary Care Provider [phone] Graeme Dunaway MD Unavailable Suleiman Lucia [facility] Unavailable Unavail able Ana Ruiz [facility] Unavailable Unavailable Chiquita Kim RN Unavailable [phone] North Pittman MD Unavailable [phone] Encounter Details Date Type Department Care Team (Late st Contact Info) Description 06/10/2021 Ophth Exam [facility] Ophthalmology [address] [place] [address] 1[address] [place] [id number] Adrian Thornton MD [address] [place] [address] Social History Tobacco Use Types Packs/Day Years Used Date Smoking Tobacco: Former Smokeless Tobacco: Never Alcohol Use Standard Drinks/Week Comments Not Currently 0 (1 standard drink = 0.6 oz pur e alcohol) Social Connection and Isolat ion Panel [NHANES] Answer Date Recorded In a typical week, how many times do you talk on the phone with family, friends, or neighbors? More than three times a week 06/10/2021 How often do you get togethe r with friends or relatives? More than three times a week 06/10/2021 Attends Restorationism Services Not on file 06/10 Active Member of Clubs or Organizations Not on f ile 06/10/2021 Attends Club or Organization Meetings Not on jenny e 06/10/2021 Marital Status Not on file 06/10/2021 Overall Financial Resource Strain (CARDIA) Answe r Date Recorded How hard is it for you to pa y for the very basics like food, housing, medical care, and heating? Not hard at all 06/10/2021 Hunger Vital Sign Answer Date Recorded Within the past 12 months, y ou worried that your food would run out before you got the money to buy more. Never true 06/10/20 21 Within the past 12 months, t he food you bought just didn't last and you didn't have money to get more. Never true 06/10/2021 PRAPARE - Transportation Answer Date Re corded In the past 12 months, has l ack of transportation kept you from medical appointments or from getting medications? No 05/27 In the past 12 months, has l ack of transportation kept you from meetings, work, or from getting things needed for daily living? No 06/10/2021 Housing Stability Vital Sign Answer Baltazar e [...] place to sleep or slept in a snf (including now)? 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 Gender Identity Not on file Sexual Orientation Not on file documented as of this encounter Plan of Treatment Not on file documented as of this encounter Visit Diagnoses Not on filedocumented in this encounter Eye Exam Visual Acuity (near card) Right eye Left eye Near cc 20/20 20/20-2 PH 20/20 Correction: Glasses Tonometry (Tonopen, 10:24 AM) Right eye Left eye Pressure 13 9 Pupils Dark Light Shape React APD Right eye 5 3 Round Brisk None Left eye 5 3 Round Brisk None Visual Early Right eye Left eye Full Full Extraocular Movement Right eye Left eye Full, Ortho Full, Ortho Neuro/Psych Oriented x3: Yes Mood/Affect: Normal Dilation Both eyes: 2.5% Phenylephrin e, 1% Tropicamide @ 10:24 AM External Exam Right eye Left eye External Normal Normal Slit Lamp Exam Right eye Left eye Lids/Lashes Normal Normal Conjunctiva/Sclera White and quiet White and erica et Cornea Clear Clear Anterior Chamber Deep and quiet Deep and quiet Iris Round and reactive Round and ronal ctive Lens PCIOL centered, 1+PCO inferiorly PCIOL centered, 1+PCO close to center Vitreous Normal Normal Fundus Exam Right eye Left eye Disc Normal sharp disc tito ns, no edema, 1 floater casting shadow on nasal side of disc C/D Ratio 0.65 0.65 Macula Normal Normal, no garcia spots, Vessels Normal Normal Periphery Normal Normal Care Teams Apron Operator Relationship Specialty Start Date End Date Harvey Urrutia MD [address] [address] PCP - General 06/09/21 11/13/23 Rodrick Weiss MD [address] [address] PCP - General Family Medicine 11/14/23 Graeme Dunaway MD [address] [place] [address] PCP - Home Infusion Attending Infectious Diseases 05/16/25 05/28/25 North Pittman MD [address] [address] PCP - Home Infusion Attending Infectious Diseases 05/29/25 Suleiman Lucia, [facility] Pharmacist Pharmacy 05/17/25 Ana Ruiz, [facility] Pharmacist Pharmacy 05/17/25 05/17/25 Chiquita Kim, RN [address] [facility] [address] [place] [id number] [facility] Outpatient Information Security Engineer 05/19/25 documented as of this encounter
--- OUTSIDE RECORDS SUMMARY | 2025-06-06 13:20 | XMS_ITS ---
Author Organization [facility] at the Medical Office Building Address [address] [place] [address] Care Team Providers Care Product Architect Name Role Phone Rodrick Weiss MD Primary Care Provider [phone] Suleiman Lucia [facility] Unavailable Unavail able Chiquita Kim RN Unavailable [phone] North Pittman MD Unavailable [phone] Home Infusion Status:Enrolled (Active) Start date:05/14/2025 Enrollment date:05/14/2025 Related service episodes:Daptomycin q 24 hr (Closed), Ceftriaxone q 24hr (Active), Anti-Infective Vancomycin (Closed) Continued Care and Services Coordination This section includes services coordinated for Home Infusion. Home Medical Care Name Services Phone [facility], Home Infusion and Injection [phone]
--- OUTSIDE RECORDS SUMMARY | 2025-06-06 13:20 | XMS_ITS | Clinical Summary ---
Author Organization [facility] at the Medical Office Building Address [address] [place] [address] Care Team Providers Care Basic Sciences Professor Name Role Phone Rodrick Weiss MD Primary Care Provider [phone] Suleiman Lucia [facility] Unavailable Unavail able Chiquita Kim RN Unavailable [phone] North Pittman MD Unavailable [phone] Allergies Active Allergy Reactions Criticality Noted Date [...] (two) times a day 60 tablet 025 Active traMADoL (ULTRAM) 50 mg tabletIndicatio ns:Neuropathic [...] mL IV as needed for line care 95035 mL 5 6:10 PM CDT 025 2024 Active heparin 10 unit/mL syringe flush syringeIndicati ons:Maintain Patency of Indwelling Vascular Catheter Infuse 5 mL (50 Units total) IV as needed (line care) 23128 mL 5 6:10 PM CDT 025 2024 [...] 1-2 hours prior to use 440 mL 5 6:10 PM CDT 025 2024 Active naproxen [...] Infection of prosthetic left knee joint 05/16/20 Assessment & Plan (05/16/2025 11:01 AM CDT): Julianna Albarran is a 69 y.o. female with a longstanding history of Left knee PJI. Patient was seen by ID in the past for similar issues, last in 01/2025. She has L TKA (2018), R TKA (2019) and R REYNA (2019). For her left knee PJI, she intially presented to [facility] 06[facility]21 with c/o worsening LLE pain, redness, and swelling after twisting her knee several days prior. She was started on IV ceftriaxone for cellulitis. She was seen by Ortho surgery with L knee arthrocentesis showing 10876 WBCs (90% PMNs) and R knee arthrocentesis showing 89057 WBCs (90% PMNs) raising concern for bilateral prosthetic joint infection. Cultures from bilateral knees grew MSSA along with blood cultures. She was then transferred to [facility] for further care. She was discharged on IV oxacillin with plans for 6 weeks of therapy to be followed by assisted oral antibiotic therapy due to retained hardware to bilateral knees. She completed IV antibiotic course on 07/12/21 and was then placed on Keflex for keno terminal operator suppression. She has been f/u with our ID clinic for her assisted antibiotic suppression. She had aspiration of knee [...] by ID to place PICC line for assisted IV antibiotics - ID is formally signing off but will continue to monitor patient peripherally while inpatient. Please see sign off note from 05/16/25 for complete recommendations. Discussed plan with Ortho Surgery AUTO RESEARCH ENGINEER Team Infection and inflammatory r eaction due to internal joint prosthesis 04/01/2025 PVC's (premature ventricular contractions) 04/11 Urinary incontinence 11/16/2023 Facet arthropathy, lumbar 09/12/2023 Other intervertebral disc degeneration, lumbar r egion 02/09/2023 Foraminal stenosis of lumbar region 02/09/2023 Spinal stenosis of lumbar re gion with neurogenic claudication 02/09/2023 Radiculopathy, lumbar region 11/16/2022 Overview (06/17/2024): Added automatically from request for surgery [id number] Failed total knee arthroplasty, subsequent encou nter 06/22/2022 Painful total knee replacement, sequela 06/21/20 Painful orthopaedic hardware 06/09/2022 Overview (06/09/2022): Added automatically from request for surgery [id number] Constipation 03/15/2022 Assessment & Plan (03/15/2022 12:09 [...] discuss chronic constipation with him to determine assisted regimen. Healthcare maintenance 03/15/2022 Assessment & Plan [...] concerns Assessment & Plan (01/29/2024 1:15 PM TEST DESIGN ENGINEER): - Reports doing well with stable [...] drawn today for routine monitoring while on assisted antibiotics - Discussed with patient the rational for treatment, culture results, risk of recurrent infection, signs/symptoms of recurrent infection, and to contact ID clinic with any questions or concerns Assessment & Plan (01/24/2023 12:39 PM TEST DESIGN ENGINEER): - Bilateral knee surgical incisions remain [...] drawn today for routine monitoring while on assisted antibiotics - Discussed with patient the rational [...] drawn today for routine monitoring while on keno terminal operator antibiotics - Discussed with patient the rational [...] drawn today for routine monitoring while on keno terminal operator antibiotics - Follow up with ortho as [...] (06/14/2021 12:36 PM CDT): Hx L TKA (2017) and R TKA (2018) complicated by bilateral knee prosthetic joint infection [...] on 6 weeks of therapy followed by keno terminal operator oral suppression given retained HW. - we [...] (06/08/2021): Added automatically from request for surgery [id number] Lower extremity pain, left 06/06/2021 Age-related osteoporosis [...] right knee prosthesis, initial encounter 05/23/2021 03/15/2022 Encounters Date Type Department Care Team Description 06/05/2025 SHOP/CHAP Subsequent Outreach [facility] OP CASE MANAGEMENT [address] [place] [address] Chiquita Kim, JOYCE 06/02/2025 SHOP/CHAP Subsequent Outreach [facility] OP CASE MANAGEMENT [address] [place] [address] Chiquita Kim, JOYCE 05/31/2025 Plan of Care Documentation [facility] [address] [place] [address] 05/31/2025 Orders Only [facility] [address] [place] [address] Suleiman Lucia [facility] 05/28/2025 3:55 PM CDT - 05/31/2025 10:50 AM CDT Hospital Encounter [facility] [address] [facility] [place] [address] Collin Mckeon DO Gaspe Mudiyanselage, Nilupa Sewwandi, [...] health skilled care 05/28/2025 SHOP/CHAP Subsequent Outreach [facility] OP CASE MANAGEMENT [address] [place] [address] Chiquita Kim, JOYCE 05/26/[address] [facility] Home Infusion Therapy [address] [place] [address] Latha Haley Infection of prosthetic left knee joint 05/26/2025 SHOP/CHAP Subsequent Outreach [facility] OP CASE MANAGEMENT [address] [place] [address] Chiquita Kim, JOYCE 05/23/2025 SHOP/CHAP Subsequent Outreach [facility] OP CASE MANAGEMENT [address] [place] [address] Chiquita Kim, JOYCE 05/22/[address] [facility] Medical Group Cardiology [address] [facility] [address] [facility] [place] [phone] Baljeet De La Rosa MD 05/21/2025 SHOP/CHAP Subsequent Outreach [facility] OP CASE MANAGEMENT [address] [place] [address] Chiquita Kim RN 05/21/2025 Telephone [facility] Infectious Diseases [address] [place] [address] [address] [place] [phone] Ann Heller, JOYCE 05/20/[address] [facility] Home Infusion Therapy [address] [place] [address] Matti Tracy, [facility] 05/19/2025 SHOP/CHAP Initial Outreach [facility] OP CASE MANAGEMENT [address] [place] [phone] Chiquita Kim, JOYCE 05/19/2025 SHOP/CHAP Initial Eligibility Review [facility] OP CASE MANAGEMENT [address] [place] [phone] Chiquita Kim, JOYCE 05/17/20[address] Plan [address] [facility] Home Infusion Therapy [address] [place] [address] 05/17/[address] [facility] Home Infusion Therapy [address] [place] [address] Ana Ruiz, [facility] Infection of prosthetic left knee joint (Primary Dx) 05/16/2025 Documentation [facility] Infectious Diseases [address] [place] [address] [address] [place] [phone] Janae Thorpe NP 05/13/2025 10:40 AM CDT - 05/13/2025 1:30 PM CDT Surgery [facility] Operating Room 1 [place] [phone] Kalpesh Rahman MD IRRIGATION AND DEBRIDEMENT - KNEE 05/13/2025 10:22 AM CDT Anesthesia Event [facility] Operating Room [address] [place] [phone] Albino Caal MD Dippolito, Jenny Irene, NP 05/13/2025 9:29 AM CDT - 05/17/2025 1:17 PM CDT Hospital Encounter [facility] 1 [place] [phone] Kalpesh Rahman MD Infection or inflammatory reaction due to internal joint prosthesis, initial encounter (Primary Dx); Illness, unspecified; Infection of prosthetic left knee joint Discharge Disposition: Discharge to home, home health skilled care 05/01/2025 Telephone [facility] Orthopaedic Surgery [address] [place] [address] Medical Office Building [address] [place] [phone] Kalpesh Rahman MD 04/29/2025 Telephone [facility] Orthopaedic Surgery [address] [facility] Medical Office Building 4 [address] [place] [address] Kalpesh Rahman MD 04/28/2025 8:30 AM CDT Pre-Admission Testing [facility] Center for Preoperative Assessment and Planning [facility] ([facility]) [address] [place] [address] Preoperative testing (Primary Dx); Vitamin D deficiency; Bleeding disorder 03/31/2025 11:52 AM CDT - 03/31/2025 11:59 PM CDT Hospital Encounter [address] MOB [address] [place] [address] History of total knee arthroplasty, left; Orthopedic aftercare Discharge Disposition: Discharge to home or self care 03/31/2025 11:15 AM CDT Office Visit [facility] Orthopaedic Surgery [address] [place] [address] [address] [place] [address] Kalpesh Rahman MD Infection of prosthetic left knee joint (Primary Dx); History of total knee arthroplasty, left; Orthopedic aftercare 03/31/2025 Telephone [facility] Infectious Diseases [address] [facility] [address] [place] [address] Latha Thorpe RMA 03/20/2025 12:00 PM CDT Office Visit [facility] Medical Group Cardiology [address] [facility] [address] [place] [address] Baljeet De La Rosa MD PVC's (premature ventricular contractions) (Primary Dx); Essential (primary) hypertension 03/15/2025 12:30 PM CDT Lab [facility] Lab [address] [place] [address] History of left knee replacement 03/10/2025 1:41 PM CDT - 03/10/2025 11:59 PM CDT Hospital Encounter [facility] Radiology [address] [phone] Inderjit Arnold MD Cabrera Lebron, Jorge Alberto, MD History of left knee replacement Discharge Disposition: Discharge to home or self care 03/07/2025 Telephone [facility] Radiology 1 [place] [address] Esther Guerrero B.A. from Last 3 Months Immunizations Immunization Administration Dates Next Due Influenza, Quadrivalent, Spl it, Intramuscular 10/05/2020 Influenza, Quadrivalent, Spl it, Preservative Free, Intramuscular 08/03/2021 Pfizer SARS-CoV-2 Monovalent Vaccination (12+ Yrs) PURPLE 02/12/2021,02/12/2021,01/22/2021,01/22 Pneumococcal Polysaccharide PPV23 03/18/2020 Surgical History Surgery Date Site/Laterality Comments KNEE SURGERY Right 1975, 2018, 2021 HYSTERECTOMY 07/10/2006 total OOPHORECTOMY 07/10/2006 Bilateral TUBAL LIGATION 11/27/1988 - 11/26/1989 OTHER SURGICAL HISTORY 06/08/2021 I&D Knee EPIDURAL STEROID INJECTION 03/07/2022 EYE SURGERY 11/27/1957 - 11/26/1958 CHOLECYSTECTOMY 11/27/1994 - 11/26/1995 DILATION AND CURETTAGE OF UTERUS 11/27/1986 - 11/26/1987 KNEE SURGERY Left 2004, 2017, 2021 REVISION TOTAL KNEE ARTHROPLASTY 11/27/2021 - 11/26/2022 Left KIDNEY STONE SURGERY 11/27/2007 - 11/26/2008 CATARACT EXTRACTION, BILATERAL 11/27/2018 - 11/26/2019 LUMBAR FUSION 11/27/2024 - 11/26/2025 posterior fusion L3-S1 and anterior L5-S1. Medical History Medical History Date Comments Osteoarthritis Hypertension Peripheral neuropathy Obesity Family History Medical History Relation Name Comments Anesthesia problems Neg Hx Breast cancer Neg Hx Relation Name Status Comments Father Mother Social History Tobacco Use Types Packs/Day Years Used Date Smoking Tobacco: Never Passive Smoke Exposure: Past Smokeless Tobacco: Never Tobacco Cessation:Counseling Given: Not Answered Alcohol Use Standard Drinks/Week Comments Not Currently 0 (1 standard drink = 0.6 oz pur e alcohol) [facility] Utilities Answer Date Recorded In the past [...] often do you attend chur ch or restoration services? Never 05/29/2025 Do you belong to any clubs o r organizations such as confucianism groups, unions, fraternal or athletic groups, or [...] any time in the past 12 [facility], were you homeless or living in a [...] on file Legal Sex Female 6:04 PM TEST DESIGN ENGINEER Gender Identity Not on file Sexual Orientation Not on file Occupation Industry Job Start Date Job End Date Retired Not on file Not on file Not on file Obstetrics History Para Term AB IAB SAB Ectopic Multiple Livin g Live Births 5 2 2 Date Outcome GA Total Labor Labor/2nd/3rd Weight Sex Type Anes PTL Kelle A1 A5 Name Clin Term Term Comments 2005--Hysterectomy Last Filed Vital Signs Vital Sign Reading [...] 05/28/2025 6:55 PM CDT Plan of Treatment Health Maintenance Due Date Last Done Comments Colon Cancer Screening-Colonoscopy 1954 Hepatitis C Screening 1954 Osteoporosis Screening-Bone Density Scan 1954 DTaP/Tdap/Td Vaccine (1 - Tdap) 1965 Hepatitis B Screening 1972 Zoster Vaccine (1 of 2) 2004 Well Visit 65+ 2019 Pneumococcal vaccine 65+ (2 of 2 - PCV) 03/18/2021 03/18/2020 Covid-19 Vaccine (5 - 2023-2 5 season) 2024 02/12/2021, 02/12/2021, 01/22/2021, Additional history exists Breast Cancer Screening-Mammogram 12/28/2024 12/28/2023, 12/28/2023, 12/24/2021 Influenza Vaccine (#1) 2025 08/03/2021, 2019 Depression Screening 05/28/2026 05/28/2025, 05/28/20 25 Fall Risk Assessment 05/31/2026 05/31/2025 Goals Goal Patient Goal Type Associated Problems [...] post op care No Chiquita Kim RN Medical Devices Implanted Type Area Lighthouse Keeper Device Identifier Shelf Expiration Date Model / Serial / Lot [employer]Or tho [id number] Legion 9mm Posterior Stabilized High Flexion Knee 3-4 Insert - [id number] - [id number] Implanted:Qty: 1 on 06/08/2021 by Suleiman Medina MD at [facility] Right: Knee [employer]Or tho 12/15/2029 [id number] / [id number] / [employer]Or tho [id number] Legion 11mm Posterior Stabilized High Flexion Knee 5-6 Insert - [id number] - [id number] Implanted:Qty: 1 on 06/08/2021 by Suleiman Medina MD at [facility] Right: Knee [employer]Or tho 05/02/2029 [id number] / [id number] / [id number] [employer] Attune Od14 Mm L30 Mm Cement Revision Knee Stem Femoral Sterile [id number] - [id number] Implanted:Qty: 1 on 06/21/2022 by Kalpesh Rahman MD at [facility] Left: Knee [employer] 03/26/2032 [id number] / / [id number] [employer] Attune Cement Revision Rotate Platform Knee 5 Baseplate Tibial [id number] - [id number] Implanted:Qty: 1 on 06/21/2022 by Kalpesh Rahman MD at [facility] Left: Knee [employer] 04/26/2032 [id number] / / [id number] [employer] Attune H8 Mm Revision Cement Knee Distal 6 Augment Femoral Sterile Latex Free [id number] - [id number] Implanted:Qty: 1 on 06/21/2022 by Kalpesh Rahman MD at [facility] Left: Knee [employer] 03/26/2031 [id number] / / [id number] [employer] Attune H8 Mm Revision Cement Knee Posterior 6 Augment Femoral Sterile Latex Free [id number] - [id number] Implanted:Qty: 1 on 06/21/2022 by Kalpesh Rahman MD at [facility] Left: Knee [employer] 12/27/2030 [id number] / / [id number] [employer] Revision Cement Constrain Knee Left 6 Component Femoral Attune [id number] - [id number] Implanted:Qty: 1 on 06/21/2022 by Kalpesh Rahman MD at [facility] Left: Knee [employer] 04/26/2032 [id number] / / [id number] [employer] Attune H8 Mm Revision Cement Knee Distal 6 Augment Femoral Sterile Latex Free [id number] - [id number] Implanted:Qty: 1 on 06/21/2022 by Kalpesh Rahman MD at [facility] Left: Knee [employer] 03/26/2031 [id number] / / [id number] [employer] Attune 4mm Revision Cement Knee Posterior 6 Augment Femoral Latex Free [id number] - [id number] Implanted:Qty: 1 on 06/21/2022 by Kalpesh Rahman MD at [facility] Left: Knee [employer] 03/26/2032 [id number] / / [id number] [employer] Attune Od16 Mm L80 Mm Cement Revision Knee Stem Femoral Sterile [id number] - [id number] Implanted:Qty: 1 on 06/21/2022 by Kalpesh Rahman MD at [facility] Left: Knee [employer] 11/26/2031 [id number] / / [id number] [employer] Attune 10mm Revision Constrain Rotate Platform Knee 6 Insert [id number] - [id number] Implanted:Qty: 1 on 06/21/2022 by Kalpesh Rahman MD at [facility] Left: Knee [employer] 02/24/2023 [id number] / / [id number] [employer] Triathlon Symmetric B Cone Augment Tibial Tritanium Sterile Latex Free 5549-A-120 - [id number] Implanted:Qty: 1 on 06/21/2022 by Kalpesh Rahman MD at [facility] Left: Knee [employer] 10/16/2026 5549-A-120 / / [id number] [employer] Simplex P Full Dose Radiopaque Preblend Cement Bone Tobramycin 6197-9-001 - [id number] Implanted:Qty: 1 on 06/21/2022 by Kalpesh Rahman MD at [facility] Left: Knee [employer] 09/26/2023 6197-9-001 / / [id number] [employer] Simplex P Full Dose Radiopaque Preblend Cement Bone Tobramycin 6197-9-001 - [id number] Implanted:Qty: 1 on 06/21/2022 by Kalpesh Rahman MD at [facility] Left: Knee [employer] 09/26/2023 6197-9-001 / / [id number] [employer] Simplex P Full Dose Radiopaque Preblend Cement Bone Tobramycin 6197-9-001 - [id number] Implanted:Qty: 1 on 06/21/2022 by Kalpesh Rahman MD at [facility] Left: Knee [employer] 09/26/2023 6197-9-001 / / [id number] [employer] tho Prep-Im Plug [place] Sponge Suction Hip Kit Thr Latex Free 924023 - [id number] Implanted:Qty: 1 on 06/21/2022 by Kalpesh Rahman MD at [facility] Left: Knee [employer] 01/13/2032 [id number] / / [id number] [employer] Prep-Im Plug [place] Sponge Suction Hip Kit Thr Latex Free 040090 - [id number] Implanted:Qty: 1 on 06/21/2022 by Kalpesh Rahman MD at [facility] Left: Knee [employer] 05/04/2032 [id number] / / [id number] [employer] Stimulan Rapid Cure Kit Paste Wastewater Treatment Operator 10cc 20cc Bone Void 620-010 - [id number] Implanted:Qty: 1 on 05/13/2025 by Kalpesh Rahman MD at [facility] Left: Knee [employer] [id number] 10/26/2027 620-010 / / [id number] [employer] Cement Bone Medium Viscosity Gentamicin Single Dose Endurance 40gm Pmma 5450-31-500 - [id number] Implanted:Qty: 1 on 05/13/2025 by Kalpesh Rahman MD at [facility] Left: Knee [employer] [id number] 12/27/2026 5450-31-500 / / [employer] Attune 10mm Revision Constrain Rotate Platform Knee 6 Insert [id number] - [id number] Implanted:Qty: 1 on 05/13/2025 by Kalpesh Rahman MD at [facility] Left: Knee [employer] [id number] 03/26/2028 [id number] / / [employer] Attune 35mm Cemented Medialize Knee Dome Patellar Aox Sterile 899680674 - [id number] Implanted:Qty: 1 on 05/13/2025 by Kalpesh Rahman MD at [facility] Left: Knee [employer] [id number] 10/26/2028 [id number] / / [employer] Attune 35mm Cemented Medialize Knee Dome Patellar Aox Sterile 957152667 - [id number] Implanted:Qty: 1 on 05/13/2025 by Kalpesh Rahman MD at [facility] Left: Knee [employer] [id number] 10/26/2028 [id number] / / Explanted Type Area Lighthouse Keeper Device Identifier Shelf Expiration Date Model / Serial / Lot [employer]/ Ortho [id number] Legion 9mm Posterior Stabilized High Flexion Knee 3-4 Insert - [id number] - [id number] Explanted:Qty: 1 on 06/08/2021 at [facility] Right: Knee [employer] [id number] 05/19/2029 12920741 / [id number] / [id number] [employer]/ Ortho [id number] Legion 11mm Posterior Stabilized High Flexion Knee 5-6 Insert - [id number] - [id number] Explanted:Qty: 1 on 06/08/2021 at [facility] Right: Knee [employer] 05/31/2029 [id number] / [id number] / [id number] Procedures Procedure Name Priority Date/Time Associated Diagnosis [...] Read Routine (OP Routine) 12/24/2021 11:13 AM TEST DESIGN ENGINEER Mastodynia from Last 3 Months or Most [...] was last reviewed 2021. Testing performed by: [facility], [address] [place] [address], [place]., [address] Blood 05/31/2025 6:32 AM CDT 05/31/2025 6:40 AM CDT us North Pittman MD LAB BLOOD ORDERABLES Final R esult JOSE [facility] [address] [facility] [place] [address] * (ABNORMAL) Differential, auto (05/31/2025 6:32 AM CDT) Neutrophil abs 2.50 1.50 - 6.50 K/cumm Comment:Testing performed by : [address] [address] Imm gran abs 0.01 0.00 - 0.10 K/cumm RAUDEL Comment:Testing performed by : [address] [address] Lymphocyte abs 0.77(L) 0.80 - 3.30 K/cumm [facility] Comment:Testing performed by : [address] [address] Monocyte abs 0.45 0.20 - 0.80 K/cumm RAUDEL Comment:Testing performed by : [address] [address] Eosinophil abs 0.54(H) 0.00 - 0.50 K/cumm RAUDEL Comment:Testing performed by : [address] [address] Basophil abs 0.01 0.00 - 0.10 K/cumm [facility] Comment:Testing performed by : [address] [address] Neutrophil pct 58.5 % [facility] Comment: Interpretive Data Percent cell count reference ranges are not reported, since discordance with absolute values may lead to misinterpretation of CBC data. Current Interpretive Data was last revised on 2018. Testing performed by: [address] [address] Imm gran pct 0.2 % [facility] Comment: Interpretive Data Percent cell count reference ranges are not reported, since discordance with absolute values may lead to misinterpretation of CBC data. Current Interpretive Data was last revised on 2018. Testing performed by: [address] [address] Lymphocyte pct 18.0 % [facility] Comment: Interpretive Data Percent cell count reference ranges are not reported, since discordance with absolute values may lead to misinterpretation of CBC data. Current Interpretive Data was last revised on 2018. Testing performed by: [address] [address] Monocyte pct 10.5 % [facility] Comment: Interpretive Data Percent cell count reference ranges are not reported, since discordance with absolute values may lead to misinterpretation of CBC data. Current Interpretive Data was last revised on 2018. Testing performed by: [address] [address] Eosinophil pct 12.6 % [facility] Comment: Interpretive Data Percent cell count reference ranges are not reported, since discordance with absolute values may lead to misinterpretation of CBC data. Current Interpretive Data was last revised on 2018. Testing performed by: [address] [address] Basophil pct 0.2 % [facility] Comment: Interpretive Data Percent cell count reference ranges are not reported, since discordance with absolute values may lead to misinterpretation of CBC data. Current Interpretive Data was last revised on 2018. Testing performed by: [address] [address] Blood 05/31/2025 6:32 AM CDT 05/31/2025 6:40 AM CDT Shelley Montgomery MD LAB BLOOD ORDERABLES Final Result [facility] [address] [facility] Department of Laboratories [place], [place] [id number] * (ABNORMAL) CBC with auto differential (05/31/2025 6:32 AM CDT) WBC 4.28 3.80 - 9.90 K/cumm Comment:Testing performed by : [address] [address] Hgb 9.5(L) 11.9 - 15.5 g/dL [facility] [place] Comment:Testing performed by : [address] [address] Hct 30.8(L) 35.6 - 45.5 % [facility] Comment:Testing performed by : [address] [address] Plt 221 150 - 400 K/cumm [facility] [place] Comment:Testing performed by : [address] [address] MPV 9.4 9.1 - 12.3 fL [facility] [place] Comment:Testing performed by : [address] [address] RBC 3.57(L) 3.90 - 5.20 M/cumm [facility] [place] Comment:Testing performed by : [address] [address] MCV 86.3 81.3 - 96.4 fL [facility] [place] Comment:Testing performed by : [address] [address] [address] MCH 26.6(L) 27.1 - 33.3 pg RAUDEL [place] Comment:Testing performed by : [address] [address] MCHC 30.8(L) 32.3 - 35.7 g/dL RAUDEL [place] Comment:Testing performed by : [address] [address] RDW CV 15.8(H) 11.1 - 14.9 % RAUDEL Comment:Testing performed by : [address] [address] RDW SD 48.8(H) 35.7 - 48.1 fL RAU[facility] [place] Comment:Testing performed by : [address] [address] NRBC abs 0.00 0.00 - 0.01 K/cumm RAUDEL [place] Comment:Testing performed by : [address] [address] Blood 05/31/2025 6:32 AM CDT 05/31/2025 6:40 AM CDT us Shelley Montgomery MD LAB BLOOD ORDERABLES Final Result RAUDEL [place] [address] [facility] [place] [address] * Basic metabolic panel (05/31/2025 6:32 AM CDT) Sodium 140 135 - 145 mmol/L Comment:Testing performed by : [address] [address] Potassium, pl 3.9 3.3 - 4.9 mmol/L RAUDEL Comment:Testing performed by : [address] [address] Chloride 103 97 - 110 mmol/L RAUDEL Comment:Testing performed by : [address] [address] CO2 27 22 - 32 mmol/L RAUDEL Comment:Testing performed by : [address] [address] Anion gap 10 2 - 15 mmol/L RAUDEL Comment:Testing performed by : [address] [address] BUN 12 6 - 25 mg/dL RAUDEL Comment:Testing performed by : [address] [address] Creatinine 0.73 0.60 - 1.10 mg/dL RAUDEL Comment:Testing performed by : [address] [address] Glucose 104 70 - 199 mg/dL RAUDEL [...] was last revised 2022. Testing performed by: [address] [address] Calcium 9.7 8.5 - 10.3 mg/dL RAUDEL Comment:Testing performed by : [address] [place] [address] Blood 05/31/2025 6:32 AM CDT 05/31/2025 6:40 AM CDT us North Pittman MD LAB BLOOD ORDERABLES Final R esult Performing Organization Address City/[facility] Co de Phone Number RAUDEL [address] [place] [address] * SCAN - LABS (05/31/2025 12:00 AM [...] was last reviewed 2021. Testing performed by: [facility], [address] [place] [address]., [address] Blood 05/30/2025 5:53 AM CDT 05/30/2025 6:01 AM CDT us North Pittman MD LAB BLOOD ORDERABLES Final R esult Performing Organization Address City/[facility]/ZIP Co de Phone Number RAUDEL MH [address] [place] [address] * (ABNORMAL) Differential, auto (05/30/2025 5:53 AM CDT) Neutrophil abs 1.73 1.50 - 6.50 K/cumm Comment:Testing performed by : [address] [address] Imm gran abs 0.01 0.00 - 0.10 K/cumm RAUDEL Comment:Testing performed by : [address], [place]., [address] Lymphocyte abs 0.47(L) 0.80 - 3.30 K/cumm RAUDEL Comment:Testing performed by : [address] [address] Monocyte abs 0.42 0.20 - 0.80 K/cumm RAUDEL Comment:Testing performed by : [address] [address] Eosinophil abs 0.42 0.00 - 0.50 K/cumm [facility] Comment:Testing performed by : [address] [address] Basophil abs 0.01 0.00 - 0.10 K/cumm [facility] Comment:Testing performed by : [address] [address] Neutrophil pct 56.6 % [facility] Comment: Interpretive Data Percent cell count reference ranges are not reported, since discordance with absolute values may lead to misinterpretation of CBC data. Current Interpretive Data was last revised on 2018. Testing performed by: [address] [address] Imm gran pct 0.3 % [facility] Comment: Interpretive Data Percent cell count reference ranges are not reported, since discordance with absolute values may lead to misinterpretation of CBC data. Current Interpretive Data was last revised on 2018. Testing performed by: [address] [address] Lymphocyte pct 15.4 % RAUDEL Comment: Interpretive Data Percent cell count reference ranges are not reported, since discordance with absolute values may lead to misinterpretation of CBC data. Current Interpretive Data was last revised on 2018. Testing performed by: [address] [address] Monocyte pct 13.7 % RAUDEL Comment: Interpretive Data Percent cell count reference ranges are not reported, since discordance with absolute values may lead to misinterpretation of CBC data. Current Interpretive Data was last revised on 2018. Testing performed by: [address] [address] Eosinophil pct 13.7 % RAUDEL Comment: Interpretive Data Percent cell count reference ranges are not reported, since discordance with absolute values may lead to misinterpretation of CBC data. Current Interpretive Data was last revised on 2018. Testing performed by: [address] [address] Basophil pct 0.3 % RAUDEL Comment: Interpretive Data Percent cell count reference ranges are not reported, since discordance with absolute values may lead to misinterpretation of CBC data. Current Interpretive Data was last revised on 2018. Testing performed by: [address] [address] Blood 05/30/2025 5:53 AM CDT 05/30/2025 6:01 AM CDT us Shelley Montgomery MD LAB BLOOD ORDERABLES Final Result [facility] [address] [facility] [place] [address] * (ABNORMAL) CBC with auto differential (05/30/2025 5:53 AM CDT) WBC 3.06(L) 3.80 - 9.90 K/cumm Comment:Testing performed by : [address] [address] Hgb 8.2(L) 11.9 - 15.5 g/dL RAUDEL Comment:Testing performed by : [address] [address] Hct 26.6(L) 35.6 - 45.5 % RAUDEL Comment:Testing performed by : [address] [address] Plt 173 150 - 400 K/cumm RAUDEL Comment:Testing performed by : [address] [address] MPV 9.2 9.1 - 12.3 fL RAUDEL Comment:Testing performed by : [address], [address] RBC 3.06(L) 3.90 - 5.20 M/cumm RAUDEL Comment:Testing performed by : [address], [address] MCV 86.9 81.3 - 96.4 fL RAUDEL Comment:Testing performed by : [address] [address] MCH 26.8(L) 27.1 - 33.3 pg RAUDEL Comment:Testing performed by : [address] [address] MCHC 30.8(L) 32.3 - 35.7 g/dL RAUDEL Comment:Testing performed by : [address], [address] RDW CV 15.7(H) 11.1 - 14.9 % RAUDEL Comment:Testing performed by : [address], [address] RDW SD 49.1(H) 35.7 - 48.1 fL RAUDEL Comment:Testing performed by : [address], [address] NRBC abs 0.00 0.00 - 0.01 K/cumm RAUDEL Comment:Testing performed by : [address], [address] Blood 05/30/2025 5:53 AM CDT 05/30/2025 6:01 AM CDT Shelley Montgomery MD LAB BLOOD ORDERABLES Final Result RAUDEL [address] [facility] Department [place] [address] * (ABNORMAL) Comprehensive metabolic panel (05/30/2025 5:53 AM CDT) Sodium 143 135 - 145 mmol/L Comment:Testing performed by : [address] [address] Potassium, pl 3.8 3.3 - 4.9 mmol/L RAUDEL Comment:Testing performed by : [address], [place]., [address] Chloride 108 97 - 110 mmol/L RAUDEL Comment:Testing performed by : [address] [address] CO2 27 22 - 32 mmol/L RAUDEL Comment:Testing performed by : [address] [address] Anion gap 8 2 - 15 mmol/L RAUDEL Comment:Testing performed by : [address] [address] BUN 13 6 - 25 mg/dL RAUDEL Comment:Testing performed by : [address] [address] Creatinine 0.73 0.60 - 1.10 mg/dL RAUDEL Comment:Testing performed by : [address] [address] Glucose 98 70 - 199 mg/dL [facility] Comment: Interpretive Data Fasting glucose >/= 126 [...] was last revised 2022. Testing performed by: [address] [address] Calcium 9.1 8.5 - 10.3 mg/dL RAUDEL Comment:Testing performed by : [address], [address] Bilirubin, total 0.2 0.1 - 1.2 mg/dL RAUDEL Comment:Testing performed by : [address] [address] Protein, pl 5.8(L) 6.5 - 8.5 g/dL RAUDEL Comment:Testing performed by : [address] [address] Albumin 3.4(L) 3.5 - 5.0 g/dL RAUDEL Comment:Testing performed by : [address], [address] Alk phos 74 40 - 130 Units/L RAUDEL Comment:Testing performed by : [address] [address] ALT 12 7 - 45 Units/L RAUDEL Comment:Testing performed by : [address] [address] AST 24 10 - 45 Units/L RAUDEL Comment:Testing performed by : [address], [address] Blood 05/30/2025 5:53 AM CDT 05/30/2025 6:01 AM CDT us North Pittman MD LAB BLOOD ORDERABLES Final R esult Performing Organization Address City/State/[facility] Co de Phone Number RAUDEL [address] [facility] Department [place] [address] * US VEIN DUPLEX LOWER EXTREMITY LEFT LIMITED, UNILATERAL (05/29/2025 8:41 AM CDT) Anatomical Region Laterality Modality Vascular Left Ultrasound 05/29/2025 8:25 AM CDT Narrative 05/30/2025 2:10 PM CDT Lower Extremity Venous Report Patient Name: JIMENA ALBARRANLIEAlejandro : 1955 (69y 5m) Gender: F Study Date: 05/29/2025 08:25:09 AM Director Of Perioperative Services: Genny Yost RDMS,[facility] Location: [id number] Order Provider: SHELLEY AMEZQUITA Quality: Limited Ref [...] Gender: F Study Date: 05/29/2025 08:25:09 AM Director Of Perioperative Services: Genny Yost RDMS,T Location:[place] [address] Order Provider: SHELLEY AMEZQUITA Quality: Limited Ref [...] augmentation. Provider Notification: Prelim results entered into [facility] study notes. CONCLUSIONS: 1. There is no evidence of deep vein thrombosis in the left lowerextremity. ATTESTATION: I have reviewed and interpreted the pertinent images and measurements ofthis study. I attest to the conclusions in the final report that is provided above. Electronically Signed By: Rob Mckenzie MD 05/30/2025 2:09:06 PM CDT us Shelley Montgomery [facility] Final Result * eGFR (05/29/2025 4:56 [...] was last reviewed 2021. Testing performed by: [facility], [address] [place] [address]., [address] Blood 05/29/2025 4:56 AM CDT 05/29/2025 6:01 AM CDT us North Pittman MD LAB BLOOD ORDERABLES Final R esult JOSE MIYF [address] [facility] Department [place] [address] * (ABNORMAL) Differential, auto (05/29/2025 4:56 AM CDT) Neutrophil abs 2.34 1.50 - 6.50 K/cumm Comment:Testing performed by : [address] [address] Imm gran abs 0.00 0.00 - 0.10 K/cumm RAUDEL Comment:Testing performed by : [address], [place]., [address] Lymphocyte abs 0.58(L) 0.80 - 3.30 K/cumm RAUDEL Comment:Testing performed by : [address], [place]., [address] Monocyte abs 0.47 0.20 - 0.80 K/cumm [facility] Comment:Testing performed by : [address] [address] Eosinophil abs 0.38 0.00 - 0.50 K/cumm [facility] Comment:Testing performed by : [address] [address] Basophil abs 0.02 0.00 - 0.10 K/cumm [facility] Comment:Testing performed by : [address] [address] Neutrophil pct 61.8 % [facility] Comment: Interpretive Data Percent cell count reference ranges are not reported, since discordance with absolute values may lead to misinterpretation of CBC data. Current Interpretive Data was last revised on 2018. Testing performed by: [address] [address] Imm gran pct 0.0 % [facility] Comment: Interpretive Data Percent cell count reference ranges are not reported, since discordance with absolute values may lead to misinterpretation of CBC data. Current Interpretive Data was last revised on 2018. Testing performed by: [address] [address] Lymphocyte pct 15.3 % [facility] Comment: Interpretive Data Percent cell count reference ranges are not reported, since discordance with absolute values may lead to misinterpretation of CBC data. Current Interpretive Data was last revised on 2018. Testing performed by: [address] [address] Monocyte pct 12.4 % [facility] Comment: Interpretive Data Percent cell count reference ranges are not reported, since discordance with absolute values may lead to misinterpretation of CBC data. Current Interpretive Data was last revised on 2018. Testing performed by: [address] [address] Eosinophil pct 10.0 % RAUDEL [place] Comment: Interpretive Data Percent cell count reference ranges are not reported, since discordance with absolute values may lead to misinterpretation of CBC data. Current Interpretive Data was last revised on 2018. Testing performed by: [address] [address] Basophil pct 0.5 % RAUDEL Comment: Interpretive Data Percent cell count reference ranges are not reported, since discordance with absolute values may lead to misinterpretation of CBC data. Current Interpretive Data was last revised on 2018. Testing performed by: [address] [address] Blood 05/29/2025 4:56 AM CDT 05/29/2025 6:01 AM CDT Shelley Montgomery MD LAB BLOOD ORDERABLES Final Result RAUDEL [address] [facility] [place] [address] * (ABNORMAL) CBC with auto differential (05/29/2025 4:56 AM CDT) WBC 3.79(L) 3.80 - 9.90 K/cumm Comment:Testing performed by : [address] [address] Hgb 8.7(L) 11.9 - 15.5 g/dL RAUDEL [place] Comment:Testing performed by : [address] [address] Hct 28.3(L) 35.6 - 45.5 % RAUDEL [place] Comment:Testing performed by : [address] [address] Plt 215 150 - 400 K/cumm RAUDEL [place] Comment:Testing performed by : [address] [address] MPV 10.0 9.1 - 12.3 fL RAUDEL [place] Comment:Testing performed by : [address] [address] RBC 3.25(L) 3.90 - 5.20 M/cumm RAUDEL [place] Comment:Testing performed by : [address] [address] MCV 87.1 81.3 - 96.4 fL RAUDEL Comment:Testing performed by : [address] [address] MCH 26.8(L) 27.1 - 33.3 pg RAUDEL Comment:Testing performed by : [address] [address] MCHC 30.7(L) 32.3 - 35.7 g/dL RAUDEL Comment:Testing performed by : [address] [address] RDW CV 15.7(H) 11.1 - 14.9 % RAUDEL Comment:Testing performed by : [address] [address] RDW SD 49.1(H) 35.7 - 48.1 fL RAUDEL Comment:Testing performed by : [address] [address] NRBC abs 0.00 0.00 - 0.01 K/cumm RAUDEL Comment:Testing performed by : [address] [address] Blood 05/29/2025 4:56 AM CDT 05/29/2025 6:01 AM CDT us Shelley Montgomery MD LAB BLOOD ORDERABLES Final Result RAUDEL [address] [facility] Department of Laboratories [place], [place] [id number] * (ABNORMAL) Hemoglobin A1c (05/29/2025 4:56 AM CDT) [facility] Hgb A1C 6.0(H) 4.0 - 5.6 % Comment:Testing performed by : [address] [address] Estimated Average Glucose 126 mg/dL RAUDEL Comment: The ADA recommends reporting an estimated Average Glucose (eAG) with all Hemoglobin A1c results using the equation derived from a study of 507 normal and diabetic adults. Minority populations were underrepresented and children were not included. (Diabetes Care 31:5303-1128, 2008). The eAG is not equivalent to a fasting glucose. Testing performed by: [address] [address] Blood 05/29/2025 4:56 AM CDT 05/29/2025 6:01 AM CDT Shelley Montgomery MD LAB BLOOD ORDERABLES Final Result [place] [address] [facility] [place] [address] * Basic metabolic panel (05/29/2025 4:56 AM CDT) [facility] Sodium 142 135 - 145 mmol/L Comment:Testing performed by : [address] [address] Potassium, pl 4.5 3.3 - 4.9 mmol/L RAUDEL Comment:Testing performed by : [address] [address] Chloride 105 97 - 110 mmol/L RAUDEL Comment:Testing performed by : [address] [address] CO2 31 22 - 32 mmol/L RAUDEL Comment:Testing performed by : [address] [address] Anion gap 6 2 - 15 mmol/L RAUDEL Comment:Testing performed by : [address] [address] BUN 15 6 - 25 mg/dL RAUDEL Comment:Testing performed by : [address] [address] Creatinine 0.80 0.60 - 1.10 mg/dL RAUDEL Comment:Testing performed by : [address] [address] Glucose 97 70 - 199 mg/dL RAUDEL [...] was last revised 2022. Testing performed by: [address] [address] Calcium 9.1 8.5 - 10.3 mg/dL RAUDEL Comment:Testing performed by : [address] [address] Blood 05/29/2025 4:56 AM CDT 05/29/2025 6:01 AM CDT us North Pittman MD LAB BLOOD ORDERABLES Final R esult Performing Organization Address City/State/[facility] Co de Phone Number [facility] [address] [facility] [place] [address] * CT Lumbar Spine WO Contrast (05/28/2025 [...] Osvaldo Gan M.D. AR: SANDOR Report ID: [id number] Reading Location: [place] [address] Procedure Note Osvaldo Gan MD - 05/29/2025 [...] Osvaldo Gan M.D. AR: SANDOR Report ID: [id number] Reading Location: [place] [address] us Nilupa Sewwandi Gaspe Mudiyanselage MD IMG CT LA OCEDURES Final Result * Blood culture Blood (05/28/2025 7:55 PM CDT) Report Final Report: No growth Comment:Testing performed by : [facility], [address], [place]., [address] Blood 05/28/2025 7:55 PM CDT 05/29/2025 12:03 [...] characteristics have been verified by the [facility] Microbiology Laboratory. For questions about this culture, contact the Microbiology Laboratory at [phone]. Interpretive data was last revised on 24. Shelley petit MD LAB MICROBIOLOGY - GENERAL ORDERABLES Final Result RAUDEL [place] [address] [facility] [place] [address] * Blood culture Blood (05/28/2025 7:55 PM CDT) Report Final Report: No growth Comment:Testing performed by : [facility], [address], [place]., [address] Blood 05/28/2025 7:55 PM CDT 05/29/2025 12:03 [...] characteristics have been verified by the [facility] Microbiology Laboratory. For questions about this culture, contact the Microbiology Laboratory at [phone]. Interpretive data was last revised on 24. Shelley petit MD LAB MICROBIOLOGY - GENERAL ORDERABLES Final Result RAUDEL [address] [facility] [place] [address] * (ABNORMAL) Erythrocyte sedimentation rate (05/28/2025 7:34 PM CDT) Erythrocyte sedimentation rate 34(H) 1 - 30 mm/hr Comment:Testing performed by : [facility], [address] [place] [address]., [address] Blood 05/28/2025 7:34 PM CDT 05/28/2025 7:41 PM CDT Shelley Montgomery MD LAB BLOOD ORDERABLES Final Result RAUDEL [address] [address] * CRP (acute phase) (05/28/2025 7:34 PM CDT) Pathologist [facility] CRP 5.6 <=10.0 mg/L Comment:Testing performed by : [address] [address] Blood 05/28/2025 7:34 PM CDT 05/28/2025 7:41 PM CDT Shelley Montgomery MD LAB BLOOD ORDERABLES Final Result Performing Organization Address [facility] Co de Phone Number [address] [place] [address] * Creatine kinase (CK), total (05/28/2025 7:34 PM CDT) Pathologist [facility] CK 71 30 - 200 Units/L Comment:Testing performed by : [address] [address] Blood 05/28/2025 7:34 PM CDT 05/28/2025 7:41 PM CDT Shelley Montgomery MD LAB BLOOD ORDERABLES Final Result [address] [place] [address] * Creatine kinase (CK), total (05/28/2025 5:28 PM CDT) CK 72 30 - 200 Units/L Comment:Testing performed by : [address] [place] [address] Blood 05/28/2025 5:28 PM CDT 05/28/2025 5:30 PM CDT Collin Mckeon DO LAB BLOOD ORDERABLES Final Result Performing Organization Address City/State/[facility] Co pr Phone Number RAUDEL [address] [facility] [place] [address] * XR Knee Left 1 or 2 [...] Stalin Jones D.O. PS: PS Report ID: [id number] Reading Location: [id number] Procedure Note Stalin Jones, - 05/28/2025 EXAM DESCRIPTION: XR KNEE LEFT [...] Stalin Jones D.O. PS: PS Report ID: [id number] Reading Location: [place] [address] Collin Mckeon DO IMG XR PROCEDURES Final [...] Stalin Jones D.O. PS: PS Report ID: [id number] Reading Location: [place] [address] Procedure Note Stalin Jones DO - 05/28/2025 [...] Stalin Jones D.O. PS: PS Report ID: [id number] Reading Location: [place] [address] us Collin Mckeon DO IMG XR PROCEDURES [...] was last reviewed 2021. Testing performed by: [address] [address] Blood 05/28/2025 12:2 8 PM CDT 05/28/2025 12:35 PM CDT us Collin Mckeon DO LAB BLOOD ORDERABLES Final Result RAUDEL [address] [facility] [place] [address] * (ABNORMAL) Differential, auto (05/28/2025 12:28 PM CDT) Neutrophil abs 2.77 1.50 - 6.50 K/cumm Comment:Testing performed by : [address] [address] Imm gran abs 0.02 0.00 - 0.10 K/cumm RAUDEL [place] Comment:Testing performed by : [address] [address] Lymphocyte abs 0.78(L) 0.80 - 3.30 K/cumm RAUDEL Comment:Testing performed by : [address], [place]., [address] Monocyte abs 0.49 0.20 - 0.80 K/cumm [facility] Comment:Testing performed by : [address], [place]., [address] Eosinophil abs 0.40 0.00 - 0.50 K/cumm [facility] Comment:Testing performed by : [address], [place]., [address] Basophil abs 0.03 0.00 - 0.10 K/cumm [facility] Comment:Testing performed by : [address] [address] Neutrophil pct 61.7 % [facility] Comment: Interpretive Data Percent cell count reference ranges are not reported, since discordance with absolute values may lead to misinterpretation of CBC data. Current Interpretive Data was last revised on 2018. Testing performed by: [address] [address] Imm gran pct 0.4 % [facility] Comment: Interpretive Data Percent cell count reference ranges are not reported, since discordance with absolute values may lead to misinterpretation of CBC data. Current Interpretive Data was last revised on 2018. Testing performed by: [address] [address] Lymphocyte pct 17.4 % [facility] Comment: Interpretive Data Percent cell count reference ranges are not reported, since discordance with absolute values may lead to misinterpretation of CBC data. Current Interpretive Data was last revised on 2018. Testing performed by: [address] [address] Monocyte pct 10.9 % [facility] Comment: Interpretive Data Percent cell count reference ranges are not reported, since discordance with absolute values may lead to misinterpretation of CBC data. Current Interpretive Data was last revised on 2018. Testing performed by: [address] [address] Eosinophil pct 8.9 % [facility] Comment: Interpretive Data Percent cell count reference ranges are not reported, since discordance with absolute values may lead to misinterpretation of CBC data. Current Interpretive Data was last revised on 2018. Testing performed by: [address] [address] Basophil pct 0.7 % RAU[facility] [place] Comment: Interpretive Data Percent cell count reference ranges are not reported, since discordance with absolute values may lead to misinterpretation of CBC data. Current Interpretive Data was last revised on 2018. Testing performed by: [address] [address] Blood 05/28/2025 12:2 8 PM CDT 05/28/2025 12:35 PM CDT Collin Mckeon DO LAB BLOOD ORDERABLES Final Result RAUDEL [address] [facility] [place] [address] * (ABNORMAL) CBC with auto differential (05/28/2025 12:28 PM CDT) WBC 4.49 3.80 - 9.90 K/cumm Comment:Testing performed by : [address] [address] Hgb 9.6(L) 11.9 - 15.5 g/dL [facility] [place] Comment:Testing performed by : [address] [address] Hct 31.2(L) 35.6 - 45.5 % [facility] [place] Comment:Testing performed by : [address] [address] Plt 254 150 - 400 K/cumm [facility] [place] Comment:Testing performed by : [address] [address] MPV 9.1 9.1 - 12.3 fL [facility] [place] Comment:Testing performed by : [address] [address] RBC 3.59(L) 3.90 - 5.20 M/cumm [facility] [place] Comment:Testing performed by : [address] [address] MCV 86.9 81.3 - 96.4 fL [facility] [place] Comment:Testing performed by : [address], [address] MCH 26.7(L) 27.1 - 33.3 pg [facility] [place] Comment:Testing performed by : [address] [address] MCHC 30.8(L) 32.3 - 35.7 g/dL [facility] [place] Comment:Testing performed by : [address], [address] RDW CV 15.6(H) 11.1 - 14.9 % RAUDEL Comment:Testing performed by : [address], [address] RDW SD 49.0(H) 35.7 - 48.1 fL [facility] [place] Comment:Testing performed by : [address], [address] NRBC abs 0.00 0.00 - 0.01 K/cumm RAUDEL Comment:Testing performed by : [address], [address] Blood 05/28/2025 12:2 8 PM CDT 05/28/2025 12:35 PM CDT Collin Mckeon DO LAB BLOOD ORDERABLES Final Result Performing Organization Address [facility]/ZIP Co de Phone Number RAUDEL [phone] [facility] [place] [address] * Creatine kinase (CK), total (05/28/2025 12:28 PM CDT) CK 73 30 - 200 Units/L Comment:Testing performed by : [address], [address] Blood 05/28/2025 12:2 8 PM CDT 05/28/2025 12:35 PM CDT Collin Mckeon DO LAB BLOOD ORDERABLES Final Result RAUDEL [address] [facility] [place] [address] * Comprehensive metabolic panel (05/28/2025 12:28 PM CDT) Sodium 142 135 - 145 mmol/L Comment:Testing performed by : [facility], [address] [place] [address], [place]., [address] Potassium, pl 4.3 3.3 - 4.9 mmol/L RAUDEL Comment:Testing performed by : [address], [place]., [address] Chloride 102 97 - 110 mmol/L RAUDEL Comment:Testing performed by : [address], [place]., [address] CO2 29 22 - 32 mmol/L RAUDEL Comment:Testing performed by : [address], [place]., [address] Anion gap 11 2 - 15 mmol/L RAUDEL Comment:Testing performed by : [address] [address] BUN 16 6 - 25 mg/dL RAUDEL Comment:Testing performed by : [address], [place]., [address] Creatinine 0.86 0.60 - 1.10 mg/dL RAUDEL Comment:Testing performed by : [address], [place]., [address] Glucose 104 70 - 199 mg/dL RAUDEL [...] was last revised 2022. Testing performed by: [address], [place]., [address] Calcium 9.6 8.5 - 10.3 mg/dL RAUDEL Comment:Testing performed by : [address] [address] Bilirubin, total 0.2 0.1 - 1.2 mg/dL RAUDEL Comment:Testing performed by : [address] [address] Protein, pl 6.8 6.5 - 8.5 g/dL RAUDEL Comment:Testing performed by : [address] [address] Albumin 3.9 3.5 - 5.0 g/dL RAUDEL Comment:Testing performed by : [address], [place]., [address] Alk phos 89 40 - 130 Units/L RAUDEL Comment:Testing performed by : [address] [address] ALT 14 7 - 45 Units/L RAUDEL Comment:Testing performed by : [address] [address] AST 31 10 - 45 Units/L RAUDEL Comment:Testing performed by : [address] [address] Blood 05/28/2025 12:2 8 PM CDT 05/28/2025 12:35 PM CDT us Collin Mckeon DO LAB BLOOD ORDERABLES Final Result RAUDEL [address] [facility] Department of Laboratories [place], [place] [id number] * (ABNORMAL) eGFR (05/16/2025 9:45 PM CDT) [...] Cosmo Gallagher NP LAB BLOOD ORDERABLES Janett lindsay Result [facility] Department [place] [address] * (ABNORMAL) CBC without differential (05/16/2025 9:45 PM CDT) WBC 5.41 3.80 - 9.90 K/cumm Hgb 9.6(L) 11.9 - 15.5 g/dL [facility] Hct 30.4(L) 35.6 - 45.5 % [facility] Plt 323 150 - 400 K/cumm [facility] MPV 9.3 9.1 - 12.3 fL [facility] RBC 3.63(L) 3.90 - 5.20 M/cumm [facility] MCV 83.7 81.3 - 96.4 fL [facility] MCH 26.4(L) 27.1 - 33.3 pg [facility] MCHC 31.6(L) 32.3 - 35.7 g/dL [facility] RDW CV 15.7(H) 11.1 - 14.9 % [facility] RDW SD 47.9 35.7 - 48.1 fL [facility] NRBC abs 0.00 0.00 - 0.01 K/cumm [facility] Blood 05/16/2025 9:4 5 PM CDT 05/16/2025 10:01 PM CDT Cosmo Gallagher NP LAB BLOOD ORDERABLES Janett l Result Performing Organization Address City/[facility]/ZIP Co de Phone Number [facility] Department [place] [address] * (ABNORMAL) Basic metabolic panel (05/16/2025 9:45 PM CDT) Pathologist [facility] Sodium 142 135 - 145 mmol/L Potassium, pl 4.1 3.3 - 4.9 mmol/L [facility] Chloride 103 97 - 110 mmol/L [facility] CO2 30 22 - 32 mmol/L [facility] Anion gap 9 2 - 15 mmol/L [facility] BUN 21 6 - 25 mg/dL [facility] Creatinine 1.11(H) 0.60 - 1.10 mg/dL [facility] Glucose 113 70 - 199 mg/dL [facility] Comment: Interpretive Data Fasting glucose >/= 126 [...] 2022. Calcium 9.9 8.5 - 10.3 mg/dL [facility] Blood 05/16/2025 9:45 PM CDT 05/16/2025 10:01 PM CDT Cosmo Gallagher NP LAB BLOOD ORDERABLES Janett l Result Performing Organization Address [facility] Co de Phone Number [facility] Department [place] [address] * Creatine kinase (CK), total (05/16/2025 11:39 AM CDT) [facility] CK 72 30 - 200 Units/L Blood 05/16/2025 11:3 9 AM CDT 05/16/2025 12:00 PM CDT Janae Thorpe AUTO RESEARCH ENGINEER LAB BLOOD ORDERABLES Final Result Performing Organization Address City/[facility] Co de Phone Number [facility] Department [place] [address] * Vancomycin level trough (05/16/2025 10:18 AM CDT) [facility] Vancomycin trough 15.7 10.0 - 20.0 mcg/mL Blood 05/16/2025 10:1 8 AM CDT 05/16/2025 10:31 AM CDT Krys Rabago AUTO RESEARCH ENGINEER LAB BLOOD ORDERABLES Janett l Result Performing Organization Address [facility] de Phone Number [facility] [place] [address] * (ABNORMAL) eGFR (05/15/2025 10:12 PM CDT) [facility] eGFR 49(L) >=60 mL/min/1. 73 m2 Comment: [...] CDT 05/15/2025 11:57 PM CDT Cosmo Gallagher NP LAB BLOOD ORDERABLES Janett l Result Performing Organization Address [facility] Co de Phone Number [facility] [place] [address] * (ABNORMAL) CBC without differential (05/15/2025 10:12 PM CDT) WBC 4.67 3.80 - 9.90 K/cumm Hgb 9.0(L) 11.9 - 15.5 g/dL [facility] Hct 28.6(L) 35.6 - 45.5 % [facility] Plt 256 150 - 400 K/cumm [facility] MPV 9.5 9.1 - 12.3 fL [facility] RBC 3.35(L) 3.90 - 5.20 M/cumm [facility] MCV 85.4 81.3 - 96.4 fL [facility] MCH 26.9(L) 27.1 - 33.3 pg [facility] MCHC 31.5(L) 32.3 - 35.7 g/dL [facility] RDW CV 15.8(H) 11.1 - 14.9 % [facility] RDW SD 48.7(H) 35.7 - 48.1 fL [facility] NRBC abs 0.00 0.00 - 0.01 K/cumm [facility] Blood 05/15/2025 10:1 2 PM CDT 05/15/2025 11:58 PM CDT Cosmo Gallagher NP LAB BLOOD ORDERABLES Janett l Result Performing Organization Address [facility]/ZIP Co de Phone Number [facility] [place] [address] * (ABNORMAL) Basic metabolic panel (05/15/2025 10:12 PM CDT) Sodium 143 135 - 145 mmol/L Potassium, pl 3.8 3.3 - 4.9 mmol/L [facility] Chloride 105 97 - 110 mmol/L [facility] CO2 28 22 - 32 mmol/L [facility] Anion gap 10 2 - 15 mmol/L [facility] BUN 17 6 - 25 mg/dL [facility] Creatinine 1.19(H) 0.60 - 1.10 mg/dL [facility] Glucose 130 70 - 199 mg/dL [facility] Comment: Interpretive Data Fasting glucose >/= 126 [...] 2022. Calcium 9.9 8.5 - 10.3 mg/dL [facility] Blood 05/15/2025 10:1 2 PM CDT 05/15/2025 11:57 PM CDT Cosmo Gallagher NP LAB BLOOD ORDERABLES Janett l Result [facility] Department [place] [address] * Vancomycin level trough Please draw 30 minutes before the 3rd dose (this morning) (05/15/2025 9:17 AM CDT) Pathologist [facility] Vancomycin trough 13.8 10.0 - 20.0 mcg/mL Blood 05/15/2025 9:17 AM CDT 05/15/2025 9:34 AM CDT Narrative [facility] - 05/15/2025 10:07 AM CDT Please draw 30 minutes before the 3rd dose (this morning) us Janae Thorpe AUTO RESEARCH ENGINEER LAB BLOOD ORDERABLES Final Result Performing Organization Address [facility] Co de Phone Number [facility] Department [place] [address] * (ABNORMAL) eGFR (05/14/2025 10:12 PM CDT) Pathologist [facility] eGFR 48(L) >=60 mL/min/1. 73 m2 Comment: [...] 05/14/2025 11:04 PM CDT us Cosmo Gallagher AUTO RESEARCH ENGINEER LAB BLOOD ORDERABLES Janett l Result Performing Organization Address City/[facility]/ZIP Co de Phone Number RAUDEL [facility] Department [place] [address] * (ABNORMAL) CBC without differential (05/14/2025 10:12 PM CDT) Pathologist [facility] WBC 5.35 3.80 - 9.90 K/cumm Hgb 9.0(L) 11.9 - 15.5 g/dL [facility] Hct 28.8(L) 35.6 - 45.5 % [facility] Plt 257 150 - 400 K/cumm [facility] MPV 9.7 9.1 - 12.3 fL [facility] RBC 3.41(L) 3.90 - 5.20 M/cumm [facility] MCV 84.5 81.3 - 96.4 fL [facility] MCH 26.4(L) 27.1 - 33.3 pg [facility] MCHC 31.3(L) 32.3 - 35.7 g/dL [facility] RDW CV 15.6(H) 11.1 - 14.9 % [facility] RDW SD 46.9 35.7 - 48.1 fL [facility] NRBC abs 0.00 0.00 - 0.01 K/cumm [facility] Blood 05/14/2025 10:1 2 PM CDT 05/14/2025 11:04 PM CDT Cosmo Gallagher AUTO RESEARCH ENGINEER LAB BLOOD ORDERABLES Janett lindsay Result [facility] Department [place] [address] * (ABNORMAL) Basic metabolic panel (05/14/2025 10:12 PM CDT) Sodium 143 135 - 145 mmol/L Potassium, pl 4.0 3.3 - 4.9 mmol/L [facility] Chloride 107 97 - 110 mmol/L [facility] CO2 28 22 - 32 mmol/L [facility] Anion gap 8 2 - 15 mmol/L [facility] BUN 15 6 - 25 mg/dL [facility] Creatinine 1.22(H) 0.60 - 1.10 mg/dL [facility] Glucose 99 70 - 199 mg/dL [facility] Comment: Interpretive Data Fasting glucose >/= 126 [...] 2022. Calcium 8.9 8.5 - 10.3 mg/dL [facility] Blood 05/14/2025 10:1 2 PM CDT 05/14/2025 11:04 PM CDT us Cosmo Gallagher NP LAB BLOOD ORDERABLES Janett l Result Performing Organization Address [facility] Co de Phone Number [facility] [place] [address] * (ABNORMAL) Hemoglobin and hematocrit (05/14/2025 1:31 PM CDT) Hgb 10.1(L) 11.9 - 15.5 g/dL Comment:Hemoglobin delta due to apparent blood transfusion. Hct 32.3(L) 35.6 - 45.5 % [facility] Blood 05/14/2025 1:31 PM CDT 05/14/2025 1:43 PM CDT Narrative [facility] - 05/14/2025 1:58 PM CDT 1 hour after the red blood cell transfusion is complete. us Kalpesh Rahman MD LAB BLOOD ORDERABLES Edited Resu lt - Final Performing Organization Address [facility] Co de Phone Number [facility] [place] [address] * Transfuse RBC (05/14/2025 11:53 AM CDT) Blood us Krys Rabago NP BLOOD TRANSFUSION ORDERAB LES Final Result Performing Organization Address [facility]/ZIP Co de Phone Number [facility] [place] [address] * Potassium (05/14/2025 9:48 AM CDT) Potassium, pl 4.3 3.3 - 4.9 mmol/L Blood 05/14/2025 9:48 AM CDT 05/14/2025 9:59 AM CDT Narrative [facility] - 05/14/2025 10:23 AM CDT Provider to discontinue after two normal results. Kalpesh Rahman MD LAB BLOOD ORDERABLES Final Resul t Performing Organization Address [facility] Co de Phone Number [facility] [place] [address] * Transfuse RBC (05/14/2025 8:51 AM CDT) Blood Kalpesh Rahman MD BLOOD TRANSFUSION ORDERABLES Fin al Result Performing Organization Address [facility] Co de Phone Number [facility] [place] [address] * Potassium (05/14/2025 5:10 AM CDT) Potassium, pl 4.5 3.3 - 4.9 mmol/L Blood 05/14/2025 5:10 AM CDT 05/14/2025 6:37 AM CDT Narrative [facility] - 05/14/2025 6:59 AM CDT Provider to discontinue after two normal results. Kalpesh Rahman MD LAB BLOOD ORDERABLES Final Resul t Performing Organization Address [facility] Co de Phone Number [facility] [place] [address] * Prepare RBC: 1 Units (05/14/2025 4:32 AM CDT) Product code [id number] Unit Number [id number] O [facility] Product Blood Type APOS [facility] Dispense Status PRESUMED TRANSFUSED [facility] Blood 05/14/2025 4:32 AM CDT 05/14/2025 4:33 AM CDT Narrative [facility] - 05/15/2025 12:57 AM CDT Are special requirements needed? (All products are leukoreduced and CMV- safe)- >No Date required:-20250514 LRRBC # of [id number] Reasons:-Active bleeding, Hgb <8 g/dL} us Kalpesh Rahman MD BLOOD BANK PRODUCT ORDERABLES Fi nal Result Performing Organization Address [facility]/ZIP Co de Phone Number [facility] Department [place] [address] * (ABNORMAL) eGFR (05/13/2025 9:20 PM CDT) eGFR 58(L) >=60 mL/min/1. 73 m2 Comment: [...] CDT 05/13/2025 10:12 PM CDT us Cosmo Gallagher AUTO RESEARCH ENGINEER LAB BLOOD ORDERABLES Janett l Result Performing Organization Address City/[facility]/ZIP Co de Phone Number [facility] Department [place] [address] * (ABNORMAL) Erythrocyte sedimentation rate (05/13/2025 9:20 PM CDT) [facility] Erythrocyte sedimentation rate 59(H) 1 - 30 mm/hr Blood 05/13/2025 9:20 PM CDT 05/13/2025 10:10 PM CDT us Cosmo Gallagher NP LAB BLOOD ORDERABLES Janett l Result [facility] [place] [address] * (ABNORMAL) CBC without differential (05/13/2025 9:20 PM CDT) [facility] WBC 4.88 3.80 - 9.90 K/cumm Hgb 7.1(L) 11.9 - 15.5 g/dL [facility] Hct 23.5(L) 35.6 - 45.5 % [facility] Plt 225 150 - 400 K/cumm [facility] MPV 9.5 9.1 - 12.3 fL [facility] RBC 2.74(L) 3.90 - 5.20 M/cumm [facility] MCV 85.8 81.3 - 96.4 fL [facility] MCH 25.9(L) 27.1 - 33.3 pg [facility] MCHC 30.2(L) 32.3 - 35.7 g/dL [facility] RDW CV 16.1(H) 11.1 - 14.9 % [facility] RDW SD 49.3(H) 35.7 - 48.1 fL [facility] NRBC abs 0.00 0.00 - 0.01 K/cumm [facility] Blood 05/13/2025 9:20 PM CDT 05/13/2025 10:10 PM CDT Cosmo Saniya Elliott AUTO RESEARCH ENGINEER LAB BLOOD ORDERABLES Janett l Result [facility] Department [place] [address] * (ABNORMAL) CRP (acute phase) (05/13/2025 9:20 PM CDT) [facility] CRP 16.8(H) <=10.0 mg/L Blood 05/13/2025 9:20 PM CDT 05/13/2025 10:12 PM CDT Cosmo Gallagher AUTO RESEARCH ENGINEER LAB BLOOD ORDERABLES Janett l Result Performing Organization Address [facility] Co de Phone Number [facility] Department [place] [address] * (ABNORMAL) Basic metabolic panel (05/13/2025 9:20 PM CDT) [facility] Sodium 142 135 - 145 mmol/L Potassium, pl 5.4(H) 3.3 - 4.9 mmol/L [facility] Chloride 107 97 - 110 mmol/L [facility] CO2 29 22 - 32 mmol/L [facility] Anion gap 6 2 - 15 mmol/L [facility] BUN 13 6 - 25 mg/dL [facility] Creatinine 1.03 0.60 - 1.10 mg/dL [facility] Glucose 115 70 - 199 mg/dL [facility] Comment: Interpretive Data Fasting glucose >/= 126 [...] 2022. Calcium 8.9 8.5 - 10.3 mg/dL [facility] Blood 05/13/2025 9:20 PM CDT 05/13/2025 10:12 PM CDT Cosmo Gallagher NP LAB BLOOD ORDERABLES Janett lindsay Result [facility] Department [place] [address] * XR Knee Left 1 or 2 [...] Report Final Report: Rare Staphylococcus epidermidis (.) [facility] Organism STAPHYLOCOCCUS EPIDERMIDIS [facility] Tissue (Knee, left) 05/13/2025 11:40 AM CDT 05/13/2025 2:46 PM CDT Narrative [facility] - 05/21/2025 11:56 AM CDT Left knee #5 Testing performed by [facility] ([phone]) Specimens submitted from normally sterile body sites [...] MICROBIOLOGY - GENERAL ORDER SONAL Final Result [facility] [place] [address] * Microorganism detection by PCR/Sequencing Tissue Knee, left (05/13/2025 11:38 AM CDT) Report Final Report: For additional result information, see attached scanned report. Tissue (Knee, left) 05/13/2025 11:38 AM CDT 05/15/2025 4:45 PM CDT Narrative RAUDEL [facility] - 05/20/2025 2:37 PM CDT Test Requested: Broad Range Bacterial PCR and Sequencing to [place] Acc # [id number] Left knee #4 per LMR Yury Kalpesh Rahman MD LAB MICROBIOLOGY - GENERAL ORDER SONAL Final Result Performing Organization Address [facility] de Phone Number [facility] Department [place] [address] * Tissue aerobic and anaerobic culture and gram stain Tissue Knee, left (05/13/2025 11:38 AM CDT) Direct Specimen Exam Stain: Rare polymorphonuclear leukocytes seen. No organisms seen. Report Final Report: No growth [facility] Tissue (Knee, left) 05/13/2025 11:38 AM CDT 05/13/2025 2:52 PM CDT Narrative RA[facility] - 05/18/2025 10:33 AM CDT Left knee #4 Testing performed by [facility] ([phone]) Specimens submitted from normally sterile body sites [...] ORDER SONAL Final Result Performing Organization Address [facility] Co de Phone Number RA[facility] [place] [address] * Tissue aerobic and anaerobic culture and gram stain Tissue Knee, left (05/13/2025 11:32 AM CDT) Direct Specimen Exam Stain: No polymorphonuclear leukocytes seen. No organisms seen. Report Final Report: No growth [facility] Tissue (Knee, left) 05/13/2025 11:32 AM CDT 05/13/2025 2:51 PM CDT Narrative [facility] - 05/18/2025 10:33 AM CDT Left knee #3 Testing performed by [facility] ([phone]) Specimens submitted from normally sterile body sites [...] ORDER SONAL Final Result Performing Organization Address [facility] Co de Phone Number RA[facility]DEL [facility] Department [place] [address] * Tissue aerobic and anaerobic culture and gram stain Tissue Knee, left (05/13/2025 11:31 AM CDT) Direct Specimen Exam Stain: No polymorphonuclear leukocytes seen. No organisms seen. Report Final Report: No growth [facility] Tissue (Knee, left) 05/13/2025 11:31 AM CDT 05/13/2025 2:53 PM CDT Narrative [facility] - 05/18/2025 10:33 AM CDT Left knee #2 Testing performed by [facility] ([phone]) Specimens submitted from normally sterile body sites [...] ORDER SONAL Final Result Performing Organization Address [facility] Co de Phone Number [facility] [place] [address] * Tissue aerobic and anaerobic culture and gram stain Tissue Knee, left (05/13/2025 11:30 AM CDT) Direct Specimen Exam Stain: No polymorphonuclear leukocytes seen. No organisms seen. Report Final Report: No growth [facility] Tissue (Knee, left) 05/13/2025 11:30 AM CDT 05/13/2025 2:45 PM CDT Narrative [facility] - 05/18/2025 10:36 AM CDT Left knee #1 Testing performed by [facility] ([phone]) Specimens submitted from normally sterile body sites [...] ORDER SONAL Final Result Performing Organization Address City/[facility] Co de Phone Number [facility] [place] [address] * Airway (05/13/2025 10:46 AM CDT) Narrative [...] ABO Rh A Positive Mirna, indirect Negative [facility] Blood 05/13/2025 9:54 AM CDT 05/13/2025 10:07 AM CDT Narrative [facility] - 05/13/2025 10:58 AM CDT Has the patient had Daratumumab or Isatuximab in the past 6 months?->Unknown us Alee Mariee AUTO RESEARCH ENGINEER LAB BLOOD BANK TEST ORD ERABLES Final Result [facility] [place] [address] * Prepare RBC: 1 Units (05/13/2025 9:40 AM CDT) Pathologist [facility] Product code [id number] Unit Number [id number] P [facility] Product Blood Type APOS [facility] Dispense Status PRESUMED TRANSFUSED [facility] Blood 05/13/2025 9:40 AM CDT 05/13/2025 9:39 AM CDT Narrative [facility] - 05/14/2025 8:00 PM CDT Are special requirements needed? (All products are leukoreduced and CMV- safe)- >No Date required:-20250513 LRRBC # of [id number] Reasons:-Intra-op transfusion} Alee Mariee NP BLOOD BANK PRODUCT ORDE RABLES Final Result Performing Organization Address [facility] [place] [address] * TYPE AND SCREEN 14 DAY (04/28/2025 10:46 AM CDT) Pathologist [facility] Mirna, indirect Negative ABO Rh A Positive [facility] Blood 04/28/2025 10:4 6 AM CDT 04/28/2025 1:02 PM CDT Narrative [facility] - 04/28/2025 1:55 PM CDT Has the patient had Daratumumab or Isatuximab in the past 6 months?->Unknown Is this test being ordered in advance for a procedure?->Yes Expected date of procedure:->05/13/25 Has the patient been transfused in the past 3 months?->No Has the patient been in the past 3 months?->No Alee Mariee NP LAB BLOOD BANK TEST ORD ERABLES [place] [address] * (ABNORMAL) eGFR (04/28/2025 10:46 AM CDT) eGFR 53(L) >=60 mL/min/1. 73 m2 [...] MD LAB BLOOD ORDERABLES Final Resul t [facility] Department [place] [address] * (ABNORMAL) Differential, auto (04/28/2025 10:46 AM CDT) Neutrophil abs 8.95(H) 1.50 - 6.50 K/cumm Imm gran abs 0.06 0.00 - 0.10 K/cumm [facility] Lymphocyte abs 0.74(L) 0.80 - 3.30 K/cumm [facility] Monocyte abs 0.41 0.20 - 0.80 K/cumm [facility] Eosinophil abs 0.06 0.00 - 0.50 K/cumm [facility] Basophil abs 0.03 0.00 - 0.10 K/cumm [facility] Neutrophil pct 87.3 % [facility] Comment: Interpretive Data Percent cell count reference ranges are not reported, since discordance with absolute values may lead to misinterpretation of CBC data. Current Interpretive Data was last revised on 2018. Imm gran pct 0.6 % [facility] Comment: Interpretive Data Percent cell count reference ranges are not reported, since discordance with absolute values may lead to misinterpretation of CBC data. Current Interpretive Data was last revised on 2018. Lymphocyte pct 7.2 % [facility] Comment: Interpretive Data Percent cell count reference ranges are not reported, since discordance with absolute values may lead to misinterpretation of CBC data. Current Interpretive Data was last revised on 2018. Monocyte pct 4.0 % [facility] Comment: Interpretive Data Percent cell count reference ranges are not reported, since discordance with absolute values may lead to misinterpretation of CBC data. Current Interpretive Data was last revised on 2018. Eosinophil pct 0.6 % [facility] Comment: Interpretive Data Percent cell count reference ranges are not reported, since discordance with absolute values may lead to misinterpretation of CBC data. Current Interpretive Data was last revised on 2018. Basophil pct 0.3 % [facility] Comment: Interpretive Data Percent cell count reference ranges are not reported, since discordance with absolute values may lead to misinterpretation of CBC data. Current Interpretive Data was last revised on 2018. Blood 04/28/2025 10:4 6 AM CDT 04/28/2025 12:37 PM CDT us Kalpesh Rahman MD LAB BLOOD ORDERABLES Final Resul t [facility] Department [place] [address] * (ABNORMAL) CPAP aPTT algorithm (04/28/2025 10:46 AM CDT) aPTT 27(L) 28 - 38 sec Comment: Interpretive Data Heparin therapeutic range: 66.0 - 100.0 seconds. Range based on correlation with therapeutic heparin activity range of 0.3 - 0.7 Units/mL. Current interpretive data was last revised on 2023. Blood 04/28/2025 10:4 6 AM CDT 04/28/2025 12:32 PM CDT us Alee Mariee AUTO RESEARCH ENGINEER LAB BLOOD ORDERABLES Fi nal Result Performing Organization Address [facility] Co de Phone Number [facility] [place] [address] * (ABNORMAL) CBC with auto differential (04/28/2025 10:46 AM CDT) WBC 10.25(H) 3.80 - 9.90 K/cumm Hgb 10.3(L) 11.9 - 15.5 g/dL [facility] Hct 33.6(L) 35.6 - 45.5 % [facility] Plt 432(H) 150 - 400 K/cumm [facility] MPV 9.2 9.1 - 12.3 fL [facility] RBC 3.99 3.90 - 5.20 M/cumm [facility] MCV 84.2 81.3 - 96.4 fL [facility] MCH 25.8(L) 27.1 - 33.3 pg [facility] MCHC 30.7(L) 32.3 - 35.7 g/dL [facility] RDW CV 15.2(H) 11.1 - 14.9 % [facility] RDW SD 46.4 35.7 - 48.1 fL [facility] NRBC abs 0.00 0.00 - 0.01 K/cumm [facility] Blood 04/28/2025 10:4 6 AM CDT 04/28/2025 12:37 PM CDT us Kalpesh Rahman MD LAB BLOOD ORDERABLES Final Resul t Performing Organization Address City/[facility]/ZIP Co de Phone Number [facility] [place] [address] * Vitamin D 25 hydroxy (04/28/2025 10:46 AM CDT) Pathologist [facility] Vitamin D 25-OH 58 30 - 80 ng/mL Blood 04/28/2025 10:4 6 AM CDT 04/28/2025 12:37 PM CDT Kalpesh aRhman MD LAB BLOOD ORDERABLES Final Resul t Performing Organization Address [facility] Co de Phone Number [facility] [place] [address] * Protime-INR (04/28/2025 10:46 AM CDT) [facility] PT 10.6 9.7 - 13.0 sec INR 0.98 0.90 - 1.20 [facility] Comment: Interpretive data Oral anticoagulant therapeutic ranges: Venous thromboembolism prophylaxis or treatment: 2.0-3.0 CARDIOLOGY Standard range: 2.0-3.0 High-intensity range: 2.5-3.5 Refer to indication-specific guidelines for appropriate target ranges for prosthetic heart valve replacement. Current interpretive data was last revised on 2019. Blood 04/28/2025 10:4 6 AM CDT 04/28/2025 12:32 PM CDT Alee Mariee NP LAB BLOOD ORDERABLES Fi nal Result Performing Organization Address [facility] de Phone Number [facility] [place] [address] * (ABNORMAL) Comprehensive metabolic panel (04/28/2025 10:46 AM CDT) [facility] Sodium 141 135 - 145 mmol/L Potassium, pl 4.4 3.3 - 4.9 mmol/L [facility] Chloride 98 97 - 110 mmol/L [facility] CO2 33(H) 22 - 32 mmol/L [facility] Anion gap 10 2 - 15 mmol/L [facility] BUN 22 6 - 25 mg/dL [facility] Creatinine 1.11(H) 0.60 - 1.10 mg/dL [facility] Glucose 121 70 - 199 mg/dL [facility] Comment: Interpretive Data Fasting glucose >/= 126 [...] 2022. Calcium 9.9 8.5 - 10.3 mg/dL [facility] Bilirubin, total 0.2 0.1 - 1.2 mg/dL [facility] Protein, pl 8.0 6.5 - 8.5 g/dL [facility] Albumin 4.3 3.5 - 5.0 g/dL [facility] Alk phos 111 40 - 130 Units/L [facility] ALT 16 7 - 45 Units/L [facility] AST 38 10 - 45 Units/L [facility] Blood 04/28/2025 10:4 6 AM CDT 04/28/2025 12:37 PM CDT us Kalpesh Rahman MD LAB BLOOD ORDERABLES Final Resul t [facility] Department [place] [address] * ECG 12 lead (04/28/2025 9:37 AM CDT) Ventricular Rate EKG/Min [address] [facility] Atrial Rate 64 BPM [facility] [place]-Interval (MSEC) [address] [facility] QRS-Interval (MSEC) [address] [facility] QT-Interval (MSEC) [address] [facility] QTc [address] [facility] P [place] [address] [facility] R [place] -[address] [facility] T [place] [address] [facility] Diagnosis Normal sinus rhythm Left axis deviation Cannot rule out Anterior infarct , age undetermined Abnormal ECG When compared with ECG of 04-APR-2024 08:37, no significant change Confirmed by OCTAVIO GONZALEZ M.D ([id number]) on 04/28/2025 12:48:08 PM [facility] 04/28/2025 9:37 AM CDT 04/28/2025 12:48 PM CDT us Alee Mariee AUTO RESEARCH ENGINEER ECG ORDERABLES Final R esult [facility] [place] * Synovasure (04/01/2025 7:42 AM CDT) Synovial fluid us Kalpesh Rahman MD LAB BODY FLUIDS AND STOOLS ORDER SONAL Final Result Performing Organization Address [facility]/ZIP Co de Phone Number EXTERNAL LAB [...] occurred. Electronically signed by: Dori Patton M.D. us Kalpesh Rahman MD IMG XR PROCEDURES Final Result * ECG 12 lead (03/20/2025 12:16 PM CDT) us Baljeet De La Rosa MD ECG ORDERABLES Fi nal Result * (ABNORMAL) Erythrocyte sedimentation rate (03/15/2025 12:35 PM CDT) Pathologist [facility] Erythrocyte sedimentation rate 47(H) 1 - 30 mm/hr Comment:Testing performed by : [facility], [address] [place] [address]., [id number] Blood 03/15/2025 12:3 5 PM CDT 03/15/2025 12:39 PM CDT us Kalpesh Rahman MD LAB BLOOD ORDERABLES Final Resul t [facility] [place] [address] * CRP (acute phase) (03/15/2025 12:35 PM CDT) Pathologist [facility] CRP 9.7 <=10.0 mg/L Comment:Testing performed by : [facility], [address] [place] [address], [place]., [address] Blood 03/15/2025 12:3 5 PM CDT 03/15/2025 12:39 PM CDT Kalpesh Rahman MD LAB BLOOD ORDERABLES Final Resul t Performing Organization Address [facility] Co de Phone Number [facility] [place] [address] * Aerobic and anaerobic culture and gram stain Synovial fluid Knee, left (03/10/2025 2:46 PM CDT) Direct Specimen Exam Stain: No polymorphonuclear leukocytes seen. No organisms seen. Comment:Testing performed by : [facility], [address] [place] [address]., [id number] Report Final Report: No growth [facility] Comment:Testing performed by : [facility], [address] [place] [address]., [id number] Synovial fluid (Knee, left) 03/10/2025 2:46 PM CDT 03/10/2025 4:54 PM CDT Kalpesh Rahman MD LAB MICROBIOLOGY - GENERAL ORDER SONAL Final Result Performing Organization Address [facility] de Phone Number [facility] [address] [facility] [place] [address] * US Guided Aspiration or Injection of [...] end of the procedure. Dr. Juli Reardon (medical transcription radiology) was present and participated in the procedure. SEDATION: The patient did not require conscious sedation for the procedure. TECHNIQUE: The risks, benefits and alternatives were discussed and informed consent was obtained. Prior to beginning the procedure, [place] Protocol was performed to confirm the patient's [...] end of the procedure. Dr. Juli Reardon (medical transcription radiology) was present and participated in the procedure. SEDATION: The patient did not require conscious sedation for the procedure. TECHNIQUE: The risks, benefits and alternatives were discussed and informed consent was obtained. Prior to beginning the procedure, [place] Protocol was performed to confirm the patient's [...] FLUIDS AND STOOLS ORDERABLES Final Result [facility] [address] [facility]. [place] [address] * Cell count w/rflx diff, [...] STOOLS ORDERABLES Final Result Performing Organization Address City/[facility]/ZIP Co de Phone Number [facility] [address] [employer] [place], [place] [id number] * Mycology (fungal) culture Synovial fluid Knee, left (03/10/2025 2:44 PM CDT) Report Final Report: No fungus isolated Comment:Testing performed by : [facility], [address] [place] [address], [place]., [address] Synovial fluid (Knee, left) 03/10/2025 2:44 PM CDT 03/10/2025 4:53 PM CDT Narrative JOSE [facility] - 04/08/2025 1:00 PM CDT Mycology cultures are held for 4 weeks. Kang Copeland MD LAB MICROBIOLOGY - GENERAL ORDERABLES Final Result [facility] [address] [facility] [employer] [place], [place] [id number] * Diagnostic Mammogram Bilateral W Elio (12/24/2021 11:13 AM TEST DESIGN ENGINEER) Anatomical Region Laterality Modality Breast Bilateral Mammography 12/24/2021 11:1 9 AM TEST DESIGN ENGINEER Narrative 12/24/2021 11:20 AM TEST DESIGN ENGINEER EXAM DESCRIPTION: DIAGNOSTIC MAMMOGRAM BILATERAL W ELIO [...] Anthony Ann M.D. RL: DENNYS Report ID: [id number] Reading Location: [facility] Harvey Urrutia MD IMG MAMMO PROCEDURES Final Resu lt from Last 3 Months or Most Recently Relevant to Health Maintenance Additional Health Concerns Active Problems Noted Date Diagnosed Date Initial Follow-Up Appointment 05/19/2025 Barriers to Medication Adherence 05/21/2025 Knowledge deficit related to post op care 2024 Insurance [address] [id number] [facility] MEDICARE [facility] [address] [phone] MEDICARE [employer] MEDICARE SUPPLEMENT [address] [address] MEDICARE [facility] MEDICARE [facility] MEDICARE SUPPLEMENT Advance Directives For more information, please contact: [phone] * Full Code (Latest Code Status on File) Date Activated Date Inactivated Comments 05/28/2025 6:52 PM 05/31/2025 4:05 PM * Full Code Date Activated Date Inactivated Comments 05/13/2025 3:39 PM 05/17/2025 5:17 PM * Full Code Date Activated Date Inactivated Comments 06/21/2022 3:59 PM 06/24/2022 8:33 PM * Full Code Date Activated Date Inactivated Comments 06/08/2021 4:54 AM 06/15/2021 9:59 PM Care Teams Basic Sciences Professor Relationship Specialty Start Date End Date Rodrick Weiss MD [address] [address] PCP - General Family Medicine 11/14/23 North Pittman MD [address] [facility] [address] [place] [address] PCP - Home Infusion Attending Infectious Diseases 05/29/25 Suleiman Lucia, [facility] Pharmacist Pharmacy 05/17/25 Chiquita Kim, JOYCE [address] [facility] [address] [place] [address] [facility] Outpatient Learning Design Specialist 05/19/25
--- OUTSIDE RECORDS SUMMARY | 2025-06-06 13:20 | XMS_ITS | Encounter Summary ---
Author Organization [facility] Facility Care Team Providers Care Stripper Black And White Name Role Phone Harvey Urrutia MD Primary Care Provider [phone] Harvey Urrutia MD Primary Care Provider [phone] Harvey Urrutia MD Primary Care Provider [phone] Rodrick Weiss MD Primary Care Provider [phone] Graeme Dunaway MD Unavailable Suleiman Lucia [facility] Unavailable Unavail able Ana Ruiz [facility] Unavailable Unavailable Chiquita Kim RN Unavailable [phone] North Pittman MD Unavailable [phone] Encounter Details Date Type Department Care Team (Latest Contact Info) Description 07/18/2018 Orders Only [facility] CLINCONV ProviderJeny MD [address] [place] [address] Social History Tobacco Use Types Packs/Day Years Used Date Smoking Tobacco: Never Assessed Comments Unknown Sex and Gender Information Value Date Recorded Sex Assigned at Not on file Legal Sex Female 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 us Historical Provider MD Final Res ult documented in this encounter Visit Diagnoses Not on filedocumented in this encounter Care Teams Stripper Black And White Relationship Specialty Start Date End Date Harvey Urrutia MD [address] [address] PCP - General 01/21/19 06/07/21 Harvey Urrutia MD [address] [address] PCP - General 06/09/21 11/13/23 Harvey Urrutia MD [address] [address] PCP - General 06/08/21 06/08/21 Rodrick Weiss MD [address] [address] PCP - General Family Medicine 11/14/23 Graeme Dunaway MD [address] [place] [address] PCP - Home Infusion Attending Infectious Diseases 05/16/25 05/28/25 North Pittman MD [address] [address] PCP - Home Infusion Attending Infectious Diseases 05/29/25 Suleiman Lucia, [facility] Pharmacist Pharmacy 05/17/25 Ana Ruiz, [facility] Pharmacist Pharmacy 05/17/25 05/17/25 Chiquita Kim, RN [address] [facility] [address] [place] [address] SHOP Outpatient Casework Manager 05/19/25 documented as of this encounter
--- OUTSIDE RECORDS SUMMARY | 2025-06-06 13:20 | XMS_ITS | Encounter Summary ---
Author Organization [facility] Address Formerly [facility] [place] [address] Care Team Providers Care Driller Hand Name Role Phone Rodrick Weiss MD Primary Care Provider [phone] Encounter Details Date Type Department Care Team (Late st Contact Info) Description 06/01/2025 Orders Only [facility] [address] [facility] [address] North Pittman MD [address] [facility] [address] [address] Social History Tobacco Use Types Packs/Day Years Used Date Smoking Tobacco: Never Smokeless Tobacco: Never Comments:non smoker Alcohol Use Standard Drinks/Week Comments Not Currently 0 (1 standard drink = 0.6 oz pur e alcohol) [facility] Utilities Answer Date Recorded In the past 12 months has [facility] [employer] gas, oil, or water [employer] threatened to shut off services in your home? No 12/11/2024 Humiliation, Afraid, Rape, and Kick questionnair e Answer Date Recorded Within the last year, have y ou been afraid of your partner or ex-partner? No 12/11/2024 Within the last year, have y ou been humiliated or emotionally abused in other ways by your partner or ex-partner? No Within the last year, have y ou been kicked, hit, slapped, or otherwise physically hurt by your partner or ex-partner? No 12/11/2024 Within the last year, have y ou been raped or forced to have any kind of sexual activity by your partner or ex-partner? No 12/11/2024 AUDIT-C Answer Date Recorded Q1: How often do you have a drink containing alc ohol? Never 09/07/2020 Average Number of Drinks Not on file 020 Frequency of Binge Drinking Not on file 08/27 Overall Financial Resource Strain (CARDIA) Answe r Date Recorded How hard is it for you to pa y for the very basics like food, housing, medical care, and heating? Not hard at all 12/11/2024 PHQ-2 Answer Date Recorded Patient Health Questionnaire-2 Score 0 01/24/2025 Hunger Vital Sign Answer Date Recorded Within the past 12 months, y ou worried that your food would run out before you got the money to buy more. Never true 12/11/19 25 Within the past 12 months, t he food you bought just didn't last and you didn't have money to get more. Never true 12/11/2024 PRAPARE - Transportation Answer Date Re corded In the past 12 months, has l ack of transportation kept you from medical appointments or from getting medications? No 11/27 In the past 12 months, has l ack of transportation kept you from meetings, work, or from getting things needed for daily living? No 12/11/2024 Housing Stability Vital Sign Answer Baltazar e Recorded In the last 12 months, was t here a time when you were not able to pay the mortgage or rent on time? No 12/11/2024 In the past 12 months, how m any times have you moved where you were living? 0 12/11/2024 At any time in the past 12 m [facility], were you homeless or living in a detention (including now)? No 12/11/2024 Comments No Sex and Gender Information Value Date Recorded Sex Assigned at Female 06/06/2021 8:43 PM CDT Legal Sex Female 4:21 PM CDT Gender Identity Female 06/06/2021 8:43 PM CDT Sexual Orientation Straight 06/06/2021 8: 43 PM CDT documented as of this encounter Functional Status * Are you deaf or do you have serious difficulty hearing Answer Date of Assessment Author Status No 12/11/2024 2:37 AM Jaki Dickson RN Active * Are you blind or do you have serious difficulty seeing, even when wearing glasses? Answer Date of Assessment Author Status No 12/11/2024 2:37 AM Jaki Dickson RN Active * Do you have serious difficulty walking or climbing stairs? Answer Date of Assessment Author Status No 12/11/2024 2:37 AM Jaki Dickson RN Active * Do you have difficulty dressing or bathing? Answer Date of Assessment Author Status No 12/11/2024 2:37 AM Jaki Dickson RN Active * Because of a physical, mental, or emotional condition, do you have difficulty doing errands alone such as visiting a doctor's office or shopping? Answer Date of Assessment Author Status No 12/11/2024 2:37 AM Jaki Dickson RN Active documented as of this encounter Mental Status * Because of a physical, mental, or emotional condition, do you have serious difficulty concentrating, remembering, or making decisions? Answer Entry Date Author Status No 12/11/2024 2:37 AM Jaki Dickson RN Active documented in this encounter Plan of Treatment Upcoming Encounters Date Type Department Care Team (Late st Contact Info) Description 06/11/2025 10:40 AM CDT Office Visit [facility] - [facility] 3 [facility], [address] [place] [phone] Cele Fernandez APRN 3 [facility] [address] [place] [address] documented as of this encounter Goals Goal Patient Goal Type Associated Problems Recent Progress Patient-Stated? Author Safety - demonstrates understanding of home safety measures General No Ana Lam RN documented as of this encounter Results * (ABNORMAL) CBC W/DIFF AUTOMATED (06/01/2025 12:30 PM CDT) WBC 4.59 4.00 - 10.80 x10'3/uL 06/01/2025 2:13 PM CDT [facility] RBC 3.59(L) 4.10 - 5.40 x10'6/uL 06/01/2025 2:13 PM CDT [facility] HGB 9.7(L) 12.0 - 16.0 G/DL 06/01/2025 2:13 PM CDT [facility] HCT 31.5(L) 36.0 - 47.0 % 06/01/2025 2:13 PM CDT [facility] MCV 87.7 78.0 - 100.0 FL 06/01/2025 2:13 PM CDT [facility] MCH 27.0 27.0 - 31.0 PG 06/01/2025 2:13 PM CDT [facility] MCHC 30.8(L) 33.0 - 36.0 G/DL 06/01/2025 2:13 PM CDT [facility] RDW 15.9(H) 11.5 - 14.5 % 06/01/2025 2:13 PM CDT [facility] PLT 252 150 - 350 x10'3/uL 06/01/2025 2:13 PM CDT [facility] MPV 10.0 7.4 - 10.4 FL 06/01/2025 2:13 PM CDT [facility] CBC COMMENT NORMAL REFERENCE RANGE NOT ESTABLISHED FOR THE PROPORTIONAL LEUKOCYTE DIFFERENTIAL. 06/01/2025 2:13 PM CDT [facility] NEUTROPHILS % 62.1 % 06/01/2025 2:13 PM CDT [facility] LYMPHOCYTES % 17.4 % 06/01/2025 2:13 PM CDT [facility] MONOCYTES % 9.4 % 06/01/2025 2:13 PM CDT [facility] EOSINOPHILS % 10.7 % 06/01/2025 2:13 PM CDT [facility] BASOPHILS % 0.2 % 06/01/2025 2:13 PM CDT [facility] IMMATURE GRANS % 0.2 % 06/01/20 2:13 PM CDT [facility] NRBC % 0.0 % 06/01/2025 2:13 PM CDT [facility] ABS. NEUTROPHILS 2.85 1.60 - 8.30 x10'3/uL 06/01/2025 2:13 PM CDT [facility] ABS. LYMPHOCYTES 0.80 0.80 - 4.70 x10'3/uL 06/01/2025 2:13 PM CDT [facility] ABS. MONOCYTES 0.43 0.00 - 1.50 x10'3/uL 06/01/2025 2:13 PM CDT [facility] ABS. EOSINOPHILS 0.49(H) 0.00 - 0.40 x10'3/uL 06/01/2025 2:13 PM CDT [facility] ABS. BASOPHILS 0.01 0.00 - 0.20 x10'3/uL 06/01/2025 2:13 PM CDT [facility] ABS. IMMATURE GRANULOCYTES 0.01 0.00 - 0.03 x10'3/uL 06/01/2025 2:13 PM CDT [facility] ABS. NUCLEATED RBC'S 0.00 0.00 - 0.01 x10'3/uL 06/01/2025 2:13 PM CDT [facility] 06/01/2025 12:3 0 PM CDT us North Pittman MD LABORATORY Final Result [facility] [address] [place] [address], * (ABNORMAL) BASIC METABOLIC PANEL (06/01/2025 12:30 PM CDT) SODIUM S/P/B 144 136 - 145 MMOL/L 06/01/2025 2:20 PM CDT [facility] POTASSIUM S/P/B 4.1 3.5 - 5.1 MMOL/L 06/01/2025 2:20 PM CDT [facility] CHLORIDE S/P/B 104 98 - 107 MMOL/L 06/01/2025 2:20 PM CDT [facility] CO2 32.3(H) 21.0 - 32.0 MMOL/L 06/01/2025 2:20 PM T [facility] GLUCOSE 91 70 - 99 MG/DL 06/01/2025 2:20 PM [facility] Comment: FASTING GLUCOSE 100 TO 125 MG/DL IS CONSISTENT WITH IMPAIRED FASTING GLUCOSE. FASTING GLUCOSE >125 MG/DL IS CONSISTENT WITH DIABETES. RANDOM GLUCOSE >200 MG/DL WITH HYPERGLYCEMIC SYMPTOMS IS CONSISTENT WITH DIABETES. PER ADA GUIDELINES BUN 20 6 - 24 MG/DL 06/01/2025 2:20 PM T [facility] CREATININE S/P/B 0.86 0.55 - 1.02 MG/DL 06/01/2025 2:20 PM [facility] CALCIUM S/P/B 9.7 8.4 - 10.5 MG/DL 06/01/2025 2:20 PM [facility] ANION GAP 7.7 5.0 - 15.0 MMOL/L 06/01/2025 2:20 PM [facility] OSMOLALITY (CALC) 300 MOSM/KG 025 2:20 PM [facility] Comment:REFERENCE RANGE NOT ESTABLISHED GFR ESTIMATE 73(L) >89 ML/MIN/1. 73 M2 06/01/2025 2:20 PM [facility] GFR NOTES GFR REFERENCE S: 06/01/2025 2:20 PM [facility] Comment: THE ESTIMATED GFR IS CALCULATED USING THE 2020 CKD-EPI EQUATION. THE FOLLOWING CATEGORIES FOR GRADING RENAL FUNCTION ARE RECOMMENDED BY THE INTERNATIONAL SOCIETY OF NEPHROLOGY (KDIGO 2012 CLINICAL PRACTICE GUIDELINE). 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
--- OUTSIDE RECORDS SUMMARY | 2025-06-06 13:20 | XMS_ITS ---
Author Name Auto Generated, Auto Generated Organization [facility] ice Address [address] [place] [address] Phone [phone] Care Team Providers Care Firer Tunnel Kiln Name Role Phone Kalpesh Rahman Unavailable [phone] Rodrick Weiss Unavailable [phone] Functional Status Mental Status Allergies and Intolerances Problems No Known Problems Reason for Referral
--- OUTSIDE RECORDS SUMMARY | 2025-06-06 13:20 | XMS_ITS | Encounter Summary ---
Author Organization [facility] Facility Care Team Providers Care Journalism Intern Name Role Phone Harvey Urrutia MD Primary Care Provider [phone] Harvey Urrutia MD Primary Care Provider [phone] Harvey Urrutia MD Primary Care Provider [phone] Rodrick Weiss MD Primary Care Provider [phone] Graeme Dunaway MD Unavailable Suleiman Lucia [facility] Unavailable Unavail able Ana Ruiz [facility] Unavailable Unavailable Chiquita Kim RN Unavailable [phone] North Pittman MD Unavailable [phone] Encounter Details Date Type Department Care Team (Latest Contact Info) Description 11/19/2018 Orders Only [facility] CLINCONV ProviderJeny MD [address] [place] [address] Social History Tobacco Use Types Packs/Day Years Used Date Smoking Tobacco: Never Assessed Comments Unknown Sex and Gender Information Value Date Recorded Sex Assigned at Not on file 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 us Historical Provider Final Res ult documented in this encounter Visit Diagnoses Not on filedocumented in this encounter Care Teams Journalism Intern Relationship Specialty Start Date End Date Harvey Urrutia MD [address] [address] PCP - General 01/21/19 06/07/21 Harvey Urrutia MD [address] [address] PCP - General 06/09/21 11/13/23 Harvey Urrutia MD [address] [address] PCP - General 06/08/21 06/08/21 Rodrick Weiss MD [address] [address] PCP - General Family Medicine 11/14/23 Graeme Dunaway MD [address] [place] [address] PCP - Home Infusion Attending Infectious Diseases 05/16/25 05/28/25 North Pittman MD [address] [address] PCP - Home Infusion Attending Infectious Diseases 05/29/25 Suleiman Lucia, [facility] Pharmacist Pharmacy 05/17/25 Ana Ruiz, [facility] Pharmacist Pharmacy 05/17/25 05/17/25 Chiquita Kim, RN [address] [facility] [address] [place] [address] [facility] Outpatient Multimedia Developer 05/19/25 documented as of this encounter
--- OUTSIDE RECORDS SUMMARY | 2025-06-06 13:20 | XMS_ITS | Encounter Summary ---
Author Organization [facility] Facility Care Team Providers Care Newspaper Or Periodical Editor Name Role Phone Harvey Urrutia MD Primary Care Provider [phone] aHrvey Urrutia MD Primary Care Provider [phone] Harvey Urrutia MD Primary Care Provider [phone] Rodrick Weiss MD Primary Care Provider [phone] Graeme Dunaway MD Unavailable Suleiman Lucia [facility] Unavailable Unavail able Ana Ruiz [facility] Unavailable Unavailable Chiquita Kim RN Unavailable [phone] North Pittman MD Unavailable [phone] Encounter Details Date Type Department Care Team (Latest Contact Info) Description 07/13/2018 Orders Only [facility] CLINCONV ProviderJeny MD [address] [place] [address] Social History Tobacco Use Types Packs/Day Years Used Date Smoking Tobacco: Never Assessed Comments Unknown Sex and Gender Information Value Date Recorded Sex Assigned at Not on file 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 us Historical Provider MD Final Res ult documented in this encounter Visit Diagnoses Not on filedocumented in this encounter Care Teams Newspaper Or Periodical Editor Relationship Specialty Start Date End Date Harvey Urrutia MD [address] [address] PCP - General 01/21/19 06/07/21 Harvey Urrutia MD [address] [address] PCP - General 06/09/21 11/13/23 Harvey Urrutia MD [address] [address] PCP - General 06/08/21 06/08/21 Rodrick Weiss MD [address] [address] PCP - General Family Medicine 11/14/23 Graeme Dunaway MD [address] [place] [address] PCP - Home Infusion Attending Infectious Diseases 05/16/25 05/28/25 North Pittman MD [address] [address] PCP - Home Infusion Attending Infectious Diseases 05/29/25 Suleiman Lucia, [facility] Pharmacist Pharmacy 05/17/25 Ana Ruiz, [facility] Pharmacist Pharmacy 05/17/25 05/17/25 Chiquita Kim, RN [address] [facility] [address] [place] [address] [facility] Outpatient Audiovisual Aids Technician 05/19/25 documented as of this encounter
--- OUTSIDE RECORDS SUMMARY | 2025-06-06 13:20 | XMS_ITS ---
Author Organization [facility] Care Team Providers Care Credit Interviewer Name Role Phone Gladys Juarez Unavailable Unavailable Allergies and adverse reactions Code CodeSystem Substance Reaction Severity StartDate Concern Status CODEINE SULFATE Unknown 06/15/2021 activ e Care Team Name Role Address Phone Organization Dates Gladys Juarez PCP [address] [place], [address], [place] (Office): : [facility] 06/15/2021 - 06/18/2021 Mental Status Section Date Assessment Total Score Description 06/18/2021 BIMS 12 moderate cognit candelario impairment CAM 0 No delirium ind icated PHQ-9 04 minimal depress ion Problems Problem # Description Date of onset Resolved Date Code CodeSystem Concern Status 1 BILATERAL PRIMARY OSTEOARTHRITIS OF KNEE 06/15/[address] active 2 CELLULITIS OF UNSPECIFIED PART OF LIMB 06/15/[address] active 3 INFECTION AND INFLAMMATORY REACTION DUE TO INTERNAL LEFT KNEE PROSTHESIS, SUBSEQUENT ENCOUNTER 06/15/[address] active 4 INFECTION AND INFLAMMATORY REACTION DUE TO INTERNAL RIGHT KNEE PROSTHESIS, SUBSEQUENT ENCOUNTER 06/15/[address] active 5 PRESENCE OF ARTIFICIAL KNEE JOINT, BILATERAL 06/15/[address] active 6 SECONDARY OSTEOARTHRITIS, LEFT HAND 06/15/[address] active Reason for Referral No Reasons for Referral Entered Social History Social History Observation Description Start Date End Date Code Code System Current Smoking Status Tobacco smoking consumption unknown 459541606 SNOMED CT Sex Assigned At Female 1955 46[address]-6 [facility] Gender Identity Vital Signs Code Code System Vitals Name Values and Units Timing Information 8462-4 [facility] Blood Pressure-Diastolic Value=78 Un its=mmHg 06/18/2021 8480-6 [facility] Blood Pressure-Systolic Hstzc=315 Un its=mmHg 06/18/2021 51480-6 [facility] Pain Level Value=6.0 06/18/2021 9279-1 [facility] Respiratory Rate Value=18.0 Units=/m in 06/18/2021 8310-5 [facility] Body Temperature Value=97.0 Units= F 06/18/2021 8867-4 [facility] Heart rate Value=82.0 Units=/min 32104-2 [facility] O2 % BldC Oximetry Value=98.0 Units= % 06/17/2021 01965-2 [facility] Weight Yubcu=852.6 Units=Lbs 8302-2 [facility] Height Value=67.0 Units=Inches 06/16/2021
--- OUTSIDE RECORDS SUMMARY | 2025-06-06 13:20 | XMS_ITS ---
Author Organization [facility] Address [address] [place] [address] Care Team Providers Care Flow Worker Name Role Phone Rodrick Weiss MD Primary Care Provider [phone] Suleiman Lucia [facility] Unavailable Unavail able Chiquita Kim RN Unavailable North Pittman MD Unavailable [phone] Ceftriaxone q 24hr Status:Enrolled (Active) Start date:05/17/2025 Enrollment date:05/17/2025 Linked medications:water for injection,sterile,ceftriaxone sodium (Active) Related program episode:Home Infusion (Active) Case Team Name Relationship Phone Suleiman Lucia [facility](Responsible Staff) Pharm acist Continued Care and Services Coordination
--- OUTSIDE RECORDS SUMMARY | 2025-06-06 13:20 | XMS_ITS | Encounter Summary ---
Author Organization [facility] Facility Care Team Providers Care Yard Stocker Name Role Phone Harvey Urrutia MD Primary Care Provider [phone] Harvey Urrutia MD Primary Care Provider [phone] Harvey Urrutia MD Primary Care Provider [phone] Rodrick Weiss MD Primary Care Provider [phone] Graeme Dunaway MD Unavailable Suleiman Lucia [facility] Unavailable Unavail able Ana Ruiz [facility] Unavailable Unavailable Chiquita Kim RN Unavailable [phone] North Pittman MD Unavailable Encounter Details Date Type Department Care Team (Latest Contact Info) Description 02/08/2019 Orders Only [facility] CLINCONV ProviderJeny MD [address] [place] [address] Social History Tobacco Use Types Packs/Day Years Used Date Smoking Tobacco: Never Assessed Comments Unknown Sex and Gender Information Value Date Recorded Sex Assigned at Not on file 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 us Historical Provider MD Final Res ult documented in this encounter Visit Diagnoses Not on filedocumented in this encounter Care Teams Yard Stocker Relationship Specialty Start Date End Date Harvey Urrutia MD [address] [address] PCP - General 01/21/19 06/07/21 Harvey Urrutia MD [address] [address] PCP - General 06/09/21 11/13/23 Harvey Urrutia MD [address] [address] PCP - General 06/08/21 06/08/21 Rodrick Weiss MD [address] [address] PCP - General Family Medicine 11/14/23 Graeme Dunaway MD [address] [place] [address] PCP - Home Infusion Attending Infectious Diseases 05/16/25 05/28/25 North Pittman MD [address] [address] PCP - Home Infusion Attending Infectious Diseases 05/29/25 Suleiman Lucia, [facility] Pharmacist Pharmacy 05/17/25 Ana Ruiz, [facility] Pharmacist Pharmacy 05/17/25 05/17/25 Chiquita Kim, RN [address] [facility] [address] [place] [address] [facility] Outpatient Violin Teacher 05/19/25 documented as of this encounter
--- OUTSIDE RECORDS SUMMARY | 2025-06-06 13:20 | XMS_ITS | Encounter Summary ---
Author Organization [facility] Facility Care Team Providers Care Mangle Feeder Name Role Phone Harvey Urrutia MD Primary Care Provider [phone] Harvey Urrutia MD Primary Care Provider [phone] Harvey Urrutia MD Primary Care Provider [phone] Rodrick Weiss MD Primary Care Provider [phone] Graeme Dunaway MD Unavailable Suleiman Lucia [facility] Unavailable Unavail able Ana Ruiz [facility] Unavailable Unavailable Chiquita Kim RN Unavailable [phone] North Pittman MD Unavailable [phone] Encounter Details Date Type Department Care Team (Latest Contact Info) Description 12/14/2018 Orders Only [facility] CLINCONV ProviderJeny MD [address] [place] [address] Social History Tobacco Use Types Packs/Day Years Used Date Smoking Tobacco: Never Assessed Comments Unknown Sex and Gender Information Value Date Recorded Sex Assigned at Not on file Legal Sex Female 6:04 PM RIVET SORTER Gender Identity Not on file Sexual Orientation Not on file documented as of this encounter Plan of Treatment Not on file documented as of this encounter Procedures Procedure Name Priority Date/Time Associated Diagnosis Comments PROCEDURE - RESULT 12/14/2018 12 :00 AM RIVET SORTER documented in this encounter Results * PROCEDURE - RESULT (12/14/2018 12:00 AM RIVET SORTER) Narrative 12/14/2018 12:00 AM RIVET SORTER Ordered by an unspecified provider. us Historical Provider Final Res ult documented in this encounter Visit Diagnoses Not on filedocumented in this encounter Care Teams Mangle Feeder Relationship Specialty Start Date End Date Harvey Urrutia MD [address] [address] PCP - General 01/21/19 06/07/21 Harvey Urrutia MD [address] [address] PCP - General 06/09/21 11/13/23 Harvey Urrutia MD [address] [address] PCP - General 06/08/21 06/08/21 Rodrick Weiss MD [address] [address] PCP - General Family Medicine 11/14/23 Graeme Dunaway MD [address] [place] [address] PCP - Home Infusion Attending Infectious Diseases 05/16/25 05/28/25 North Pittman MD [address] [address] PCP - Home Infusion Attending Infectious Diseases 05/29/25 Suleiman Lucia, [facility] Pharmacist Pharmacy 05/17/25 Ana Ruiz, [facility] Pharmacist Pharmacy 05/17/25 05/17/25 Chiquita Kim, RN [address] [facility] [address] [place] [address] [facility] Outpatient Geospatial Specialist 05/19/25 documented as of this encounter
--- OUTSIDE RECORDS SUMMARY | 2025-06-06 13:20 | XMS_ITS | Clinical Summary ---
Author Organization [facility] Address [address] [place] [address] Care Team Providers Care Police Commissioner Name Role Phone Rodrick Weiss MD Primary Care Provider [phone] Allergies Active Allergy Reactions Criticality Noted Date Comments Codeine Other (see comment),Syncope High 04/04/2019 Passes out passes out Hydrocodone Other (see comment) 10/05/2020 Didn't work on pain and was up for 4 nights without sleep. Patient can take tylenol. Took oxycodone for previous surgery Medications gabapentin 300 MG capsuleIndication s:Neuropathic Pain Take 3 capsules (900 mg total) by mouth 3 (three) times daily. Indications: Neuropathic Pain 0 Active lisinopril 10 MG tablet Take 0.5 tablets (5 mg total) by mouth daily. 1 Active atorvastatin (LIPITOR) 20 MG tablet Take 1 tablet (20 mg total) by mouth daily. 3 Active DULoxetine (CYMBALTA) 20 MG capsule Take 2 capsules (40 mg total) by mouth daily. 3 Active metoprolol succinate ER (TOPROL-XL) 50 MG 24 hr tablet Take 1 tablet (50 mg total) by mouth daily. 3 Active BONE STIMULATOR, DME,Indications:S saroj instabilities of lumbar region Wear 4 hours daily. Can break up into multiple sessions totaling 4 hours. 1 Device 4 Active Misc. Devices MiscIndications:S saroj instabilities of lumbar region 1 each by Does not apply route continuous. LSO for continuous wear while ambulating or up in chair. 1 each 4 Active Calcium Carbonate Antacid 600 MG Chew Tab Chew 2 tablets by mouth daily. Active furosemide (LASIX) 20 MG tablet Take 1 tablet (20 mg total) by mouth daily. 4 Active cephALEXin (KEFLEX) 500 MG capsule Take 1 capsule (500 mg total) by mouth 3 (three) times daily. 4 Active Vitamin D3 (CHOLECALCIFEROL) 50 mcg tabletIndications :S/P lumbar fusion Take 2.5 tablets (125 mcg total) by mouth daily. 30 tablet 5 Active cyclobenzaprine (FLEXERIL) 10 MG tabletIndications :S/P lumbar fusion Take 1 tablet (10 mg total) by mouth 3 (three) times daily as needed for Muscle Spasms. 40 tablet 5 Active naloxone (NARCAN) 4 MG/0.1ML nasal sprayIndications: S/P lumbar fusion 1 spray by Nasal route as needed for Opioid reversal. may repeat every 2 to 3 minutes in alternating nostrils until medical assistance becomes available 1 each 5 026 Active oxyCODONE-acetami nophen (PERCOCET) 5-325 MG tabletIndications :Acute Pain < 7 Day Supply Take 1-2 tablets by mouth every 4 (four) hours as needed for Pain. Indications: Acute Pain < 7 Day Supply 50 tablet 5 Active Active Problems Problem Noted Date Diagnosed Date S/P lumbar laminectomy 12/13/2024 S/P lumbar fusion 12/10/2024 Urinary incontinence, unspecified type 3 Lower extremity pain, left 06/06/2021 Osteoarthritis of right hip, unspecified osteoarthritis type 10/15/2020 Status post total hip replacement, right 020 Resolved Problems Problem Noted Date Diagnosed Date Resolved Date Degeneration of intervertebr al disc of lumbar region with discogenic back pain and lower extremity pain 12/13/2024 12/27/2024 Lumbar spine instability 12/13/2024 Spondylolisthesis of lumbar region 12/13/2024 12/27/2024 Facet arthropathy, lumbar 09/12/2023 Spinal stenosis of lumbar re gion with neurogenic claudication 02/09/2023 12/27/2024 Other intervertebral disc de generation, lumbar region 02/09/2023 12/27/2024 Foraminal stenosis of lumbar region 02/09/2023 12/27/2024 Radiculopathy, lumbar region 11/16/2022 12/27/2024 Overview (11/16/2022): Added automatically from request for surgery [id number] Encounters Date Type Department Care Team Description 06/04/2025 Telephone [facility] [address] [facility], [address] [place] [id number] Cele Fernandez APRN Appointment Reminder 06/01/2025 2:01 PM CDT - 06/01/2025 11:59 PM CDT Hospital Encounter [facility] [address] [place] [address] North Pittman MD Discharge Disposition: Home or Self Care (Routine Discharge) 06/01/2025 Orders Only [facility] [address] [place] [address] North Pittman MD 04/08/2025 Results Follow-Up [facility] [address] [facility], [address] [facility] [place] [address] Cele Fernandez APRN XR LUMB SPINE AP+LAT ONLY 04/04/2025 3:25 PM CDT - 04/04/2025 11:59 PM CDT Hospital Encounter [facility] [place] [address] Cele Fernandez MATERIAL CREW SUPERVISOR Discharge Disposition: Home or Self Care (Routine Discharge) 04/04/2025 Travel 04/03/2025 Telephone [facility] [address] [facility], [address] [place] [address] Cele Fernandez, MATERIAL CREW SUPERVISOR Medication 04/01/2025 Orders Only [facility] - [address], [address] [place] [place] [address] Cele Fernandez, MATERIAL CREW SUPERVISOR 04/01/2025 Telephone [facility] [address] [facility], [address] [place] [address] Cele Fernandez, MATERIAL CREW SUPERVISOR Concerns 03/31/2025 Telephone [facility] - [address], [address] [place] [place] [address] Cele Fernandez, MATERIAL CREW SUPERVISOR Concerns from Last 3 Months Immunizations Immunization Administration Dates Next Due PFIZER COVID-19 (ORIGINAL FO RMULATION, PURPLE CAP) mRNA, LNP-S, PF, 30 MCG/0.3 ML DOSE 02/12/2021,01/22/2021 Pneumococcal (Pneumovax 23) 03/18/2020 Family History Medical History Relation Comments No Known Problems Brother Cancer Father colon Heart Disease Father No Known Problems Maternal Aunt No Known Problems Maternal Grandfather No Known Problems Maternal Grandmother No Known Problems Maternal Uncle Hypertension Mother No Known Problems Paternal Aunt No Known Problems Paternal Grandfather No Known Problems Paternal Grandmother No Known Problems Paternal Uncle Cancer Sister 1 colon Cancer Sister 2 colon Relation Status Comments Brother Father (Age 59) heart failure Maternal Aunt Maternal Grandfather Maternal Grandmother Maternal Uncle Mother (Age 89) old age Paternal Aunt Paternal Grandfather Paternal Grandmother Paternal Uncle Sister 1 Sister 2 Alive Son 1 Alive Son 2 Alive Social History Tobacco Use Types Packs/Day Years Used Date Smoking Tobacco: Never Smokeless Tobacco: Never Tobacco Cessation:Counseling Given: Not Answered Comments:non smoker Alcohol Use Standard Drinks/Week Comments Not Currently 0 (1 standard drink = 0.6 oz pur e alcohol) [facility] Utilities Answer Date Recorded In the past 12 months has e [employer], gas, oil, or water [employer] threatened to shut off services in your [...] Average Number of Drinks Not on file Frequency of Binge Drinking Not on file [...] Orientation Straight 06/06/2021 8: 43 PM CDT Last Filed Vital Signs Vital Sign Reading Time Taken Comments Blood Pressure 134/79 01/24/2025 10:10 AM GRANITE FABRICATOR Pulse 104 01/24/2025 10:10 AM GRANITE FABRICATOR Temperature 36.2 C (97.2 F) 01/24/2025 10:10 AM GRANITE FABRICATOR Respiratory Rate 16 12/13/2024 10:53 AM GRANITE FABRICATOR Oxygen Saturation 97% 01/24/2025 10:10 AM GRANITE FABRICATOR Inhaled Oxygen Concentration - - Weight 91.4 kg (201 lb 9.6 oz) 01/24/2025 10:10 AM GRANITE FABRICATOR Height 167.6 cm (5' 6) 01/24/2025 10:10 AM GRANITE FABRICATOR Body Mass Index 32.54 01/24/2025 10:10 AM GRANITE FABRICATOR Plan of Treatment Upcoming Encounters Date Type Department Care Team (Late st Contact Info) Description 06/11/2025 10:40 AM CDT Office Visit [facility] [address] [facility], [address] [place] [id number] Cele Fernandez APRN [address] [facility] [address] [place] [address] Health Maintenance Due Date Last Done Comments Colorectal Cancer Screening Colonoscopy (10 Years) 1954 Hepatitis C 1972 DTaP, Tdap and Td Vaccines ( 1 - Tdap) 1973 Zoster Vaccines (1 of 2) 2004 Annual Medicare Wellness Visit 2019 Dexa Scan (General) 2019 Pneumococcal Vaccine: 50+ Years (2 of 2 - PCV) 03/18/2021 03/18/2020 COVID-19 Vaccine (3 - 2023-2 5 season) 2024 02/12/2021, 01/22/2021 Mammogram Screening 12/28/2025 12/28/2023, 12/24/2021 RSV Immunization or 60+ Years (1 - 1-dose 75+ series) 2029 PHQ-2 (Physician [place]) Completed 01/24/2025 Meningococcal B Vaccine Aged Out No l onger eligible based on patient's age to complete this topic Meningococcal Vaccine Aged Out No aisha kristyn eligible based on patient's age to complete this topic RSV Immunizations Under 20 Months Aged Out No longer eligible b ased on patient's age to complete this topic Goals Goal Patient Goal Type Associated Problems Recent Progress Patient-Stated? Author Safety - demonstrates understanding of home safety measures General No Ana Lam RN Medical Devices Implanted Type Area Toggler Device Identifier Shelf Expiration Date Model / Serial / Lot Graft Infuse Bone Large Ii - [id number] Implanted:Qt y: 1 on 12/10/2024 by Tyler Garcia MD at [facility] N/A: Spine Lumbar [employer] [id number] 01/25/2025 [id number] / / [id number] Putty Raphael Matrix Dbm/Dbf Bone 6cc - [id number] Implanted:Qt y: 1 on 12/10/2024 by Tyler Garcia MD at [facility] N/A: Spine Lumbar [employer] [id number] 08/26/2026 [id number] / [id number] / Putty Dubois Matrix Dbm/Dbf Bone 6cc - [id number] Implanted:Qt y: 1 on 12/10/2024 by Tyler Garcia MD at [facility] N/A: Spine Lumbar [employer] [id number] 08/26/2026 [id number] / [id number] / Putty Dubois Matrix Dbm/Dbf Bone 6cc - [id number] Implanted:Qt y: 1 on 12/10/2024 by Tyler Garcia MD at [facility] Bone N/A: Spine Lumbar [employer] [id number] 09/05/2026 [id number] / [id number] / Description:L3-4 Medtronic Anteralign Ls Spacer Implanted:Qt y: 1 on 12/10/2024 by Tyler Garcia MD at [facility] Cage N/A: Spine Lumbar [employer] [id number] 11/01/2030 [id number] / / [id number] Description:L3-4 Medtronic Anteralign Ls Spacer Implanted:Qt y: 1 on 12/10/2024 by Tyler Garcia MD at [facility] Cage N/A: Spine Lumbar [employer] [id number] 12/01/2030 [id number] / / [id number] Description:L5-S1 Shell Acetabular Depuy 56mm - [id number] Implanted:Qt y: 1 on 10/15/2020 by Denis Ken MD at [facility] Hip Components Right: Acetabulum DEPUY [id number] 08/26/2030 [id number] / / [id number] Liner Depuy Acet Altrx Neut 36x56 - [id number] Implanted:Qt y: 1 on 10/15/2020 by Denis Ken MD at [facility] Hip Components Right: Acetabulum DEPUY [id number] 07/27/2025 [id number] / / [id number] Head Depuy Femoral Delta 36mm +1.5 - [id number] Implanted:Qt y: 1 on 10/15/2020 by Denis Ken MD at [facility] Hip Components Right: Femur DEPUY [id number] 08/26/2025 [id number] / / [id number] Actis Femoral Stem Implanted:Qt y: 1 on 10/15/2020 by Denis Ken MD at [facility] Hip Components Right: Femur DEPUY SYNTHES [id number] 06/26/2030 [id number] / / ACTIS FEMORAL STEM 39 Mm Pyramid Plate Implanted:Qt y: 1 on 12/10/2024 by Tyler Garcia MD at [facility] Plate N/A: Spine Lumbar [employer] [id number] / / 4.75 X 80 Mm Robin Implanted:Qt y: 1 on 12/10/2024 by Tyler Garcia MD at [facility] Robin Left: Spine Lumbar [employer] [id number] / / 4.75 X 90 Mm Robin Implanted:Qt y: 1 on 12/10/2024 by Tyler Garcia MD at [facility] Robin Right: Spine Lumbar [employer] [id number] / / 6.5 X 30 Mm Screw Implanted:Qt y: 4 on 12/10/2024 by Tyler Garcia MD at [facility] Screw N/A: Spine Lumbar [employer] [id number] / / Aneralign Spinal System Screw 30mm Implanted:Qt y: 1 on 12/10/2024 by Tyler Garcia MD at [facility] Screw N/A: Spine Lumbar [employer] [id number] 09/28/2031 [id number] / / [id number] Description:L4-5 Anteralign Spinal System Screw 30mm Implanted:Qt y: 1 on 12/10/2024 by Tyler Garcia MD at [facility] Screw N/A: Spine Lumbar [employer] [id number] 09/02/2029 [id number] / / [id number] Description:L4-5 Medtronic Anteralign Screw 30 Mm Implanted:Qt y: 1 on 12/10/2024 by Tyler Garcia MD at [facility] Screw N/A: Spine Lumbar [employer] [id number] 03/06/2032 [id number] / / [id number] Medtronic Anteralign Screw Implanted:Qt y: 1 on 12/10/2024 by Tyler Garcia MD at [facility] Screw N/A: Spine Lumbar [employer] [id number] 03/28/2032 [id number] / / [id number] 6.5 X 35 Mm Screws Implanted:Qt y: 1 on 12/10/2024 by Tyler Garcia MD at [facility] Screw N/A: Spine Lumbar [employer] [id number] / / 6.5 X 40 Mm Screws Implanted:Qt y: 3 on 12/10/2024 by Tyler Garcia MD at [facility] Screw N/A: Spine Lumbar [employer] [id number] / / 7.5 X 35 Mm Screws Implanted:Qt y: 1 on 12/10/2024 by Tyler Garcia MD at [facility] Screw N/A: Spine Lumbar [employer] [id number] / / 7.5 X 40 Mm Screws Implanted:Qt y: 1 on 12/10/2024 by Tyler Garcia MD at [facility] Screw N/A: Spine Lumbar [employer] [id number] / / 7.5 X 45 Mm Screws Implanted:Qt y: 1 on 12/10/2024 by Tyler Garcia MD at [facility] Screw N/A: Spine Lumbar [employer] [id number] / / 8.5x40 Mm Screws Implanted:Qt y: 1 on 12/10/2024 by Tyler Garcia MD at [facility] Screw N/A: Spine Lumbar [employer] [id number] / / Graft Soft Tissue 4x4cm [facility] Allograft - [id number] Implanted:Qt y: 1 on 12/10/2024 by Tyler Garcia MD at [facility] Tissue N/A: Spine Lumbar NUTECH 08/22/2028 [id number] / [id number] / Anteralign Spinal System Ls Spacer Lg 6dg 12mm Implanted:Qt y: 1 on 12/10/2024 by Tyler Garcia MD at [facility] N/A: Spine Lumbar [employer] [id number] 09/09/2030 [id number] / / [id number] Description:L4-5 Voyager Set Screw Implanted:Qt y: 8 on 12/10/2024 by Tyler Garcia MD at [facility] N/A: Spine Lumbar [employer] [id number] / / Procedures Procedure Name Priority Date/Time Associated Diagnosis Comments BASIC METABOLIC PANEL Routine 06/01/2025 12:30 PM CDT Infection associated with internal left knee prosthesis CBC W/DIFF AUTOMATED Routine 06/01/2025 12:30 PM CDT Infection associated with internal left knee prosthesis XR LUMB SPINE AP+LAT ONLY Routine 04/04/2025 3:39 PM CDT S/P lumbar fusion MG DIAG W STEFFANY BILAT DIGI Routine 12/28/2023 9:59 AM GRANITE FABRICATOR Mastodynia from Last 3 Months or Most Recently Relevant to Health Maintenance Results * (ABNORMAL) BASIC METABOLIC PANEL (06/01/2025 12:30 PM CDT) SODIUM S/P/B 144 136 - 145 MMOL/L 06/01/2025 2:20 PM CDT [facility] POTASSIUM S/P/B 4.1 3.5 - 5.1 MMOL/L 06/01/2025 2:20 PM CDT [facility] CHLORIDE S/P/B 104 98 - 107 MMOL/L 06/01/2025 2:20 PM CDT [facility] CO2 32.3(H) 21.0 - 32.0 MMOL/L 06/01/2025 2:20 PM CDT [facility] GLUCOSE 91 70 - 99 MG/DL 06/01/2025 2:20 PM T [facility] Comment: FASTING GLUCOSE 100 TO 125 MG/DL IS CONSISTENT WITH IMPAIRED FASTING GLUCOSE. FASTING GLUCOSE >125 MG/DL IS CONSISTENT WITH DIABETES. RANDOM GLUCOSE >200 MG/DL WITH HYPERGLYCEMIC SYMPTOMS IS CONSISTENT WITH DIABETES. PER ADA GUIDELINES BUN 20 6 - 24 MG/DL 06/01/2025 2:20 PM CDT [facility] CREATININE S/P/B 0.86 0.55 - 1.02 MG/DL 06/01/2025 2:20 PM CDT [facility] CALCIUM S/P/B 9.7 8.4 - 10.5 MG/DL 06/01/2025 2:20 PM T [facility] ANION GAP 7.7 5.0 - 15.0 MMOL/L 06/01/2025 2:20 PM T [facility] OSMOLALITY (CALC) 300 MOSM/KG 025 2:20 PM T [facility] Comment:REFERENCE RANGE NOT ESTABLISHED GFR ESTIMATE 73(L) >89 ML/MIN/1. 73 M2 06/01/2025 2:20 PM T [facility] GFR NOTES GFR REFERENCE S: 06/01/2025 2:20 PM [facility] Comment: THE ESTIMATED GFR IS CALCULATED [...] us North Pittman MD LABORATORY Final Result [facility] [address] [place] [address], * (ABNORMAL) CBC W/DIFF AUTOMATED (06/01/2025 12:30 PM CDT) WBC 4.59 4.00 - 10.80 x10'3/uL 06/01/2025 2:13 PM CDT [facility] RBC 3.59(L) 4.10 - 5.40 x10'6/uL 06/01/2025 2:13 PM CDT [facility] HGB 9.7(L) 12.0 - 16.0 G/DL 06/01/2025 2:13 PM CDT [facility] HCT 31.5(L) 36.0 - 47.0 % 06/01/2025 2:13 PM CDT [facility] MCV 87.7 78.0 - 100.0 FL 06/01/2025 2:13 PM CDT [facility] MCH 27.0 27.0 - 31.0 PG 06/01/2025 2:13 PM CDT [facility] MCHC 30.8(L) 33.0 - 36.0 G/DL 06/01/2025 2:13 PM CDT [facility] RDW 15.9(H) 11.5 - 14.5 % 06/01/2025 2:13 PM CDT [facility] PLT 252 150 - 350 x10'3/uL 06/01/2025 2:13 PM CDT [facility] MPV 10.0 7.4 - 10.4 FL 06/01/2025 2:13 PM CDT [facility] CBC COMMENT NORMAL REFERENCE RANGE NOT ESTABLISHED FOR THE PROPORTIONAL LEUKOCYTE DIFFERENTIAL. 06/01/2025 2:13 PM CDT [facility] NEUTROPHILS % 62.1 % 06/01/2025 2:13 PM CDT [facility] LYMPHOCYTES % 17.4 % 06/01/2025 2:13 PM CDT [facility] MONOCYTES % 9.4 % 06/01/2025 2:13 PM CDT [facility] EOSINOPHILS % 10.7 % 06/01/2025 2:13 PM CDT [facility] BASOPHILS % 0.2 % 06/01/2025 2:13 PM CDT [facility] IMMATURE GRANS % 0.2 % 06/01/20 2:13 PM CDT [facility] NRBC % 0.0 % 06/01/2025 2:13 PM CDT [facility] ABS. NEUTROPHILS 2.85 1.60 - 8.30 x10'3/uL 06/01/2025 2:13 PM CDT [facility] ABS. LYMPHOCYTES 0.80 0.80 - 4.70 x10'3/uL 06/01/2025 2:13 PM CDT [facility] ABS. MONOCYTES 0.43 0.00 - 1.50 x10'3/uL 06/01/2025 2:13 PM CDT [facility] ABS. EOSINOPHILS 0.49(H) 0.00 - 0.40 x10'3/uL 06/01/2025 2:13 PM CDT [facility] ABS. BASOPHILS 0.01 0.00 - 0.20 x10'3/uL 06/01/2025 2:13 PM CDT [facility] ABS. IMMATURE GRANULOCYTES 0.01 0.00 - 0.03 x10'3/uL 06/01/2025 2:13 PM CDT [facility] ABS. NUCLEATED RBC'S 0.00 0.00 - 0.01 x10'3/uL 06/01/2025 2:13 PM CDT [facility] 06/01/2025 12:3 0 PM CDT us North Pittman MD LABORATORY Final Result [facility] [address] [place] [address], * XR LUMB SPINE AP+LAT ONLY (04/04/2025 3:39 PM CDT) Anatomical Region Laterality Modality Spine Radiographic Sarahi ging 04/05/2025 4:15 AM CDT Impressions 04/05/2025 4:18 AM CDT IMPRESSION: Stable appearance of the lumbar spine status post fusion. No radiographic findings of hardware loosening. Referred By: Interpreted By: Pilo Andujar MD, 04/05/2025 4:15 AM Narrative 04/05/2025 4:18 AM CDT [address] [address] Examination: XR LUMB SPINE AP+LAT ONLY Exam time: 04/04/2025 3:28 PM Clinical history: SP LUMBAR FUSION Comparison: Radiographs January 24, 2025. Technique: 2 views of the lumbar spine. Findings: Postsurgical changes of posterior fusion identified at L3-S1 and anteriorly at L5-S1. The hardware appears intact and demonstrates stable alignment. No radiographic findings of hardware loosening. Redemonstrated levocurvature of the thoracolumbar spine. Vertebral body heights appear preserved. No distinct findings of fracture or destructive lesion. Procedure Note Pilo Andujar MD - 04/05/[address] [address] Examination: XR LUMB SPINE AP+LAT ONLY Exam time: 04/04/2025 3:28 PM Clinical history: SP LUMBAR FUSION Comparison: Radiographs January 24, 2025. Technique: 2 views of the lumbar spine. Findings: Postsurgical changes of posterior fusion identified at L3-S1 andanteriorly at L5-S1. The hardware appears intact and demonstrates stablealignment. No radiographic findings of hardware loosening. Redemonstratedlevocurvature of the thoracolumbar spine. Vertebral body heights appearpreserved. No distinct findings of fracture or destructive lesion. IMPRESSION: Stable appearance of the lumbar spine status post fusion. No radiographicfindings of hardware loosening. Referred By: Interpreted By: Pilo Andujar MD, 04/05/2025 4:15 AM us Cele Fernandez MATERIAL CREW SUPERVISOR GENERAL IMAGING Final Resu lt * MG DIAG W STEFFANY BILAT DIGI (12/28/2023 9:59 AM GRANITE FABRICATOR) Anatomical Region Laterality Modality Breast Bilateral Mammography 12/28/2023 10:1 8 AM GRANITE FABRICATOR Narrative 12/28/2023 10:20 AM GRANITE FABRICATOR EXAMINATION: Digital bilateral diagnostic mammogram with 3-D tomography EXAM DATE/TIME: 12/28/2023 9:29 AM REASON FOR EXAM: MASTODYNIA Pain in the medial/inferior left breast. No palpable mass. COMPARISON: 12/24/2021. 12/20/2008 TECHNIQUE: Digital diagnostic mammography of both breasts was performed in addition to 3-D Tomosynthesis technique. This study was read with the assistance of a computer-aided detection system. TISSUE DENSITY: The breast tissue is heterogeneously dense, which may obscure small masses. Findings: Marker placed overlying the region of pain in the medial and inferior aspect of the anterior left breast. Normal underlying parenchyma. Similar appearance to prior exam. No malignant microcalcifications. No new focal asymmetry, dominant mass lesion, area of skin thickening, or cluster of suspicious appearing calcifications in either breast to suggest malignancy. Exam is limited due to patient having to be done in a wheelchair. Limited visualization of the right axilla =====IMPRESSION:===== Stable mammographic appearance with no new findings to suggest malignancy in either breast. ASSESSMENT: ACR BI-RADS 2 - BENIGN FINDING(S) Recommendation: 1: Routine Screening Bilateral COMMENTS: Ordered By: RODRICK WEISS Interpreted By: Marlyn Mcarthur, 12/28/2023 10:18 AM us Rodrick Weiss MD MAMMO Final Result from Last 3 Months or Most Recently Relevant to Health Maintenance Insurance [address] [id number] MEDICARE [facility] Advance Directives * Full Code (Latest Code Status on File) Date Activated Date Inactivated Comments 12/10/2024 6:14 PM 12/13/2024 3:58 PM * Full Code Date Activated Date Inactivated Comments 06/06/2021 8:46 PM 06/08/2021 6:00 AM * Full Code Date Activated Date Inactivated Comments 11/04/2020 9:01 AM 06/06/2021 9:32 AM * Full Code Date Activated Date Inactivated Comments 10/15/2020 1:37 PM 10/16/2020 5:59 PM Care Teams Police Commissioner Relationship Specialty Start Date End Date Rodrick Weiss MD [address] [place] [address] PCP - General FAMILY PRACTICE 10/13/23
[2025-06-06 14:32] LABS: Hematocrit 32.7 % (37.0-47.0); Hemoglobin 9.6 g/dL (12.0-15.0); Immature Granulocyte Percent A 0.0 % (0-0.5); Lymphocytes Absolute Auto 0.65 K/mm3 (0.9-3.2); Mean Corpuscular HGB Conc 29.4 g/dl (32-36); Mean Corpuscular Hemoglobin 26.5 pg (26-34); Mean Corpuscular Volume 90.3 fl (80-100); Nucleated Red Blood Cells Absolute Auto 0.000 K/mm3 (0.0-0.012); Nucleated Red Blood Cells Perc 0.0 % (0.0-0.2); Platelet Count Result 250 k/mm3 (150-375); Red Blood Count 3.62 M/mm3 (4.2-5.4); White Blood Count 3.4 K/mm3 (4.5-10.0)
[2025-06-06 14:45] LABS: Anion Gap 9 mmol/L (4-12); Blood Urea Nitrogen 26 mg/dL (7-17); CRP 0.5 mg/dL (<1.0); Calcium 9.4 mg/dL (8.4-10.2); Carbon Dioxide 28 mmol/L (22-30); Chloride 103 mmol/L (98-107); Creatine Kinase 89 U/L (30-135); Estimated Glomerular Filt Rate > 60; Glucose 78 mg/dL (65-110); Potassium 4.4 mmol/L (3.4-5.0); Sodium 140 mmol/L (137-145)
[2025-06-06 16:15] LABS: Anisocytosis 2+; Band Neutrophils Percent 0 % (0-6); Hypochromasia 1+; Schistocytes None Seen
== END 2025-06-06 12:39 | disposition home or self-care (01) ==
PROVIDERS: PCP Family Medicine; Visit Provider Internal Medicine Infectious Disease
DX: T84.54XA Infection and inflammatory reaction due to internal left knee prosthesis, initial encounter (principal)
CPT/HCPCS: 36415; 80048; 82550; 85025; 86140